=== PATIENT | male | born 1965 | race Caucasian/White ===

== ENCOUNTER 2021-04-14 07:15 | Outpatient (REF) | payer OTHER, SELFPAY ==
--- NOTE | ~2021-04-14 | US_ITS ---
EXAMINATION: US ABDOMEN COMPLETE CLINICAL INFORMATION: Other specified abnormal findings of blood chemistry. COMPARISON: None TECHNIQUE: Real-time imaging of the abdominal viscera. FINDINGS: PANCREAS: Normal. ABDOMINAL AORTA: The proximal, mid, and distal segments are normal in caliber. INFERIOR VENA CAVA: Visualized portions are normal. LIVER: There is some mild diffuse increased echogenicity consistent with fatty infiltration/hepatocellular disease. There is mild dilatation of intrahepatic bile ducts. No focal solid mass is appreciated. GALLBLADDER: There is echogenic bile present. No wall thickening is seen. No fluid within wall was noted. No pericholecystic fluid. COMMON BILE DUCT: Normal in caliber measuring 0.6 cm in diameter. RIGHT KIDNEY: Normal. No hydronephrosis. No renal calculi or focal parenchymal lesions. The kidney measures 11.7 cm in maximum dimension. LEFT KIDNEY: Normal. No hydronephrosis. No renal calculi or focal parenchymal lesions. The kidney measures 11.4 cm in maximum dimension. SPLEEN: Normal. The spleen measures 8.8 cm in maximum dimension. FREE FLUID: None. US/US abdomen complete IMPRESSION: Mildly increased echogenicity of the liver consistent with fatty infiltration/hepatocellular disease. Mild intrahepatic bile duct dilatation. No definite echogenic focus is seen within the visualized hepatic and common bile ducts. Sludge within the gallbladder.
[2021-04-14 08:04] LABS: MANUAL DIFF FLAG NO
[2021-04-14 08:08] LABS: Basophils Percent Auto 0.6 % (0-2); Eosinophils Absolute Auto 0.2 X10*3/uL (0.0-0.4); Eosinophils Percent Auto 3.3 % (0-4); Hematocrit 40.7 % (42-52); Hemoglobin 14.1 g/dl (14.0-18.0); Imm Gran Abs Auto 0.06 X10*3/uL (0.00-0.03); Imm Gran Pct Auto 0.9 % (0.0-0.4); Lymphocytes Absolute Auto 2.3 X10*3/uL (1.2-4.9); Lymphocytes Percent Auto 32.8 % (20-40); Mean Corpuscular HGB Conc 34.6 g/dl (31.0-36.0); Mean Corpuscular Hemoglobin 34.6 pg (27.0-33.0); Mean Platelet Volume 9.6 fL (9.4-12.4); Monocytes Absolute Auto 0.7 X10*3/uL (0.1-1.2); Monocytes Percent Auto 10.5 % (2-11); Neutrophils Absolute Auto 3.7 X10*3/uL (2.0-8.3); Neutrophils Percent Auto 51.9 % (45-73); Platelet Count 165 X10*3/uL (160-400); Red Blood Count 4.07 X10*6/uL (4.60-5.80); Red Cell Distribution Width 12.8 % (11.0-16.0); White Blood Count 7.1 X10*3/uL (4.8-10.8)
[2021-04-14 08:36] LABS: Alanine Aminotransferase 29 U/L (0-40); Albumin Level 4.5 g/dL (3.5-5.0); Alkaline Phosphatase 49 U/L (39-117); Anion Gap 15 (12-20); Aspartate Amino Transferase 26 U/L (5-37); Bilirubin Total 0.6 mg/dL (0.0-1.0); Blood Urea Nitrogen 15 mg/dL (9-16); Calcium 9.6 mg/dL (8.4-10.2); Carbon Dioxide 24 mmol/L (22-29); Chloride 105 mmol/L (96-108); Estimated Glomerular Filt Rate > 60; Glucose Random 120 mg/dL (60-115); Sodium 140 mmol/L (135-145); Total Protein 6.8 g/dL (6.5-8.0)
[2021-04-14 08:51] LABS: Free T4 (Free Thyroxine) 0.87 ng/dL (0.71-1.85); Prostate Specific Antigen Scr 2.42 ng/mL (<0.05-4.0); Thyroid Stimulating Hormone 1.51 uIU/mL (0.32-4.0)
[2021-04-14 09:00] LABS: Folate 11.7 ng/mL (> or = 4.0); Vitamin B12 1697 pg/mL (200-900)
== END 2021-04-14 07:16 | disposition home or self-care (01) ==
LOC: HO.US 07:15
PROVIDERS: PCP Internal Medicine; Visit Provider Internal Medicine
DX: Z12.5 Encounter for screening for malignant neoplasm of prostate (principal); R10.11 Right upper quadrant pain; R79.89 Other specified abnormal findings of blood chemistry
CPT/HCPCS: 36415; 76700; 80053; 82607; 82746; 84153; 84439; 84443; 85025

== ENCOUNTER 2021-06-02 20:02 | Emergency (ER) | payer OTHER, SELFPAY ==
--- NOTE | ~2021-06-02 | CT_ITS ---
EXAMINATION: CT ABDOMEN AND PELVIS WITH CONTRAST CLINICAL INFORMATION: Rectal pain and bleeding COMPARISON: None TECHNIQUE: Multidetector volumetric images were obtained from the superior aspect of the liver through the pubic symphysis following administration 85 mL of Omnipaque 350 intravenous contrast. Sagittal and coronal reformatted images were obtained on the technologist's workstation. Oral contrast: No This CT examination was performed using dose optimization techniques as appropriate, variously including the following: *Automated exposure control *Adjustment of mA and/or kV according to patient size (this includes techniques or standardized protocols for targeted exams where dose is matched to indication/reason for exam; i.e. extremities or head) *Use of iterative reconstruction technique DLP: 547 mGy-cm FINDINGS: LUNG BASES: The visualized lung bases are unremarkable. LIVER, GALLBLADDER, AND BILIARY TREE: The liver is normal in size, shape, and attenuation. No focal hepatic lesion or biliary ductal dilatation is present. The gallbladder is unremarkable with no evidence of radiopaque gallstones, gallbladder wall thickening, or obvious pericholecystic inflammatory changes. PANCREAS: Unremarkable. SPLEEN: Unremarkable. ADRENAL GLANDS: Unremarkable. KIDNEYS AND URETERS: The kidneys are normal in size, shape, and attenuation. No hydronephrosis, hydroureter, or calculi seen. No perinephric stranding. BLADDER: There is symmetric bladder wall thickening, possibly secondary to outflow obstruction GASTROINTESTINAL TRACT: The small and large bowel are unremarkable aside from scattered colonic diverticula without diverticulitis. The appendix is unremarkable. ABDOMINAL WALL: No significant hernia is appreciated. LYMPH NODES: No retroperitoneal lymphadenopathy seen. VASCULAR: Minimal calcific plaque present in the infrarenal aorta without aneurysm PELVIC VISCERA: Prostate moderately enlarged measuring 4.5 x 4.5 x 4.7 cm. Punctate calcifications are seen. Seminal vesicles appear normal. OSSEOUS STRUCTURES: Unremarkable. CT/CT abdomen pelvis w con IMPRESSION: 1. A cause for the patient's rectal bleeding and pain has not been found. Scattered colonic diverticula are present without diverticulitis. 2. Incidental note made of mild BPH with thick-walled bladder possibly secondary to outflow obstruction
[2021-06-02 20:47] LABS: MANUAL DIFF FLAG NO
[2021-06-02 20:48] LABS: Basophils Percent Auto 0.5 % (0-2); Eosinophils Absolute Auto 0.3 X10*3/uL (0.0-0.4); Hematocrit 38.7 % (42-52); Hemoglobin 13.6 g/dl (14.0-18.0); Imm Gran Abs Auto 0.05 X10*3/uL (0.00-0.03); Imm Gran Pct Auto 0.6 % (0.0-0.4); Lymphocytes Absolute Auto 3.4 X10*3/uL (1.2-4.9); Lymphocytes Percent Auto 39.9 % (20-40); Mean Corpuscular HGB Conc 35.1 g/dl (31.0-36.0); Mean Corpuscular Hemoglobin 34.7 pg (27.0-33.0); Mean Corpuscular Volume 98.7 fL (80-98); Mean Platelet Volume 9.1 fL (9.4-12.4); Monocytes Absolute Auto 0.7 X10*3/uL (0.1-1.2); Monocytes Percent Auto 8.7 % (2-11); Neutrophils Absolute Auto 4.1 X10*3/uL (2.0-8.3); Neutrophils Percent Auto 47.3 % (45-73); Platelet Count 154 X10*3/uL (160-400); Red Blood Count 3.92 X10*6/uL (4.60-5.80); Red Cell Distribution Width 12.6 % (11.0-16.0); White Blood Count 8.6 X10*3/uL (4.8-10.8)
[2021-06-02 21:01] LABS: Appearance Urine CLEAR; Color Urine YELLOW; Glucose Urine UA NEG (NEG); Leukocyte Esterase Urine NEG (NEG); Nitrite Urine NEG (NEG); Specific Gravity - Urine <= 1.005 (1.005-1.025); Urine Blood NEG (NEG); Urine Ketones NEG (NEG); Urine Protein NEG (NEG-TRACE)
[2021-06-02 21:04] LABS: Alanine Aminotransferase 30 U/L (0-40); Albumin Level 4.4 g/dL (3.5-5.0); Alkaline Phosphatase 44 U/L (39-117); Anion Gap 13 (12-20); Aspartate Amino Transferase 28 U/L (5-37); Bilirubin Total 0.5 mg/dL (0.0-1.0); Blood Urea Nitrogen 12 mg/dL (9-16); Calcium 9.1 mg/dL (8.4-10.2); Carbon Dioxide 24 mmol/L (22-29); Chloride 109 mmol/L (96-108); Estimated Glomerular Filt Rate > 60; Glucose Random 125 mg/dL (60-115); Potassium 3.4 mmol/L (3.3-5.1); Sodium 143 mmol/L (135-145); Total Protein 6.6 g/dL (6.5-8.0)
[2021-06-02 21:43] VITALS: BP 107/67; PULSE 78; RESP 16; TEMP 36.4; O2SAT 100; BMI 27.2
--- NOTE | 2021-06-02 22:33 | ED_ITS ---
HPI - General Adult General Chief complaint: General Medical Stated complaint: Rectum bleeding Time Seen by Provider: 06/02/21 22:33 Source: patient Mode of arrival: ambulatory Limitations: no limitations History of Present Illness HPI narrative: rectal pain and bleeding 3 days. No history of hemorrhoids. Patient decided to come because he still has pain. Onset (ago): day(s) Severity: mild Pain Consistency: intermittent Associated symptoms: denies other symptoms Related Data Previous Rx's Medication Instructions Recorded pantoprazole 40 mg tablet,delayed 40 mg PO DAILY 90 Days #90 tab 05/02/21 release sertraline 50 mg tablet 50 mg PO DAILY #30 tab 05/02/21 naproxen 500 mg tablet (Naprosyn) 500 mg PO BID #20 tab 06/02/21 Allergies Allergy/AdvReac Type Severity Reaction Status Date / Time No Known Allergies Allergy Verified 05/02/21 09:36 [No Known Allergies*] Review of Systems Constitutional: Constitutional: Reports no additional constitutional complaints Eyes: Eyes: Reports no additional eye complaints ENT: Denies dizziness Cardiovascular: Cardiovascular: Reports no additional cardiovascular complaints Respiratory: Respiratory: Reports as per HPI Gastrointestinal: Gastrointestinal: Reports no additional gastrointestinal complaints Musculoskeletal: Musculoskeletal: Reports no additional musculoskeletal complaints Integumentary/Breasts: Skin/Breast: Denies rash Neurologic: Reports system reviewed and no additional complaints, except as documented, Denies dizziness and Denies Sensory deficit (Neuro) Psychiatric: Psychiatric: Denies anxiety PMFSH Past Medical History Medical History Alcohol abuse GERD (gastroesophageal reflux disease) Hiatal hernia Obstructive sleep apnea Tobacco abuse Family History Family History Father No problems noted. Mother Cancer Brother No problems noted. Brother No problems noted. Sister No problems noted. Sister No problems noted. Sister No problems noted. Daughter No problems noted. Son No problems noted. Social History Social History Housing: Apartment Alcohol intake: current Alcohol intake frequency: 3 or more drinks per day Patient Tobacco Use Status: Current everyday Tobacco user Tobacco use type: Cigarette Cigarette Packs Per Day: 10 Years Smoked: pack Q 2 days e-Cigarette/Vaping Use: Never Used Second Hand Smoke Exposure: Yes Advance Directives: No Advance Directives Information Provided: No service: No Current occupational status: employed Physical Exam Vital Signs: Vital Signs: Last Vital Signs Temp 97.6 F 06/02/21 21:43 Pulse 78 06/02/21 21:43 Resp 16 06/02/21 21:43 BP 107/67 06/02/21 21:43 Pulse Ox 100 06/02/21 21:43 Body Mass Index 27.2 Const: General: healthy appearing Nutritional Appearance: average body habitus Orientation/consciousness: oriented to person and patient oriented x3 Limitations: no limitations HENMT: Head: Yes normal to inspection Ears: external ears normal General nose exam: Normal external nose present Mouth: Normal oral and palatal mucosa present and oropharynx normal Throat: Yes posterior oropharynx normal Eyes: General: appearance normal, both eyes and all related structures Neck: Other: supple Neck: Yes normal visual inspection Chest: Chest palpation & inspection: normal inspection of the chest Resp: Auscultation: clear to auscultation bilaterally Cardio: Jugular venous distension: no JVD Rate: regular rate Rhythm: regular rhythm Heart sounds: S1 normal heart sound present and S2 normal heart sound present GI: Inspection: Yes normal to inspection Palpation (GI): Soft to palpation, nontender and No hepatosplenomegaly present Auscultation: normal bowel sounds : Other: rectum with no masses or bleeding, no hemorrohoids. General: Yes no CVA tenderness Back/Spine/Pelvis: Back: no CVA tenderness Skin: General skin exam: no rashes or lesions noted Neuro: General: oriented to person and patient oriented x3 Cranial nerves: Yes CN's II-XII intact bilaterally Motor exam (neuro): 5/5 motor strength present throughout Sensory Exam: No Sensory deficit (Neuro) Extrem: General: Yes normal to inspection Psych: Appearance: grossly normal Course Reevaluation(s) Reevaluation #1: Patient with continued pain despite a negative exam will obtain a CT abd/pelvis with IV contrast Time: 22:41 Reevaluation #2: Labs normal, CT does not show any source of the rectal pain. Will dc home with follow up Time: 23:43 Medical Decision Making Lab Data Result diagrams: 06/02/21 20:38 06/02/21 20:38 Labs: Lab Results 06/02/21 06/02/21 06/02/21 Range/Units 20:38 20:38 20:43 WBC 8.6 (4.8-10.8) X10*3/uL RBC 3.92 L (4.60-5.80) X10*6/uL Hgb 13.6 L (14.0-18.0) g/dl Hct 38.7 L (42-52) % MCV 98.7 H (80-98) fL MCH 34.7 H (27.0-33.0) pg MCHC 35.1 (31.0-36.0) g/dl RDW 12.6 (11.0-16.0) % Plt Count 154 L (160-400) X10*3/uL MPV 9.1 L (9.4-12.4) fL Immature Gran % (Auto) 0.6 H (0.0-0.4) % Neut % (Auto) 47.3 (45-73) % Lymph % (Auto) 39.9 (20-40) % [place] % (Auto) 8.7 (2-11) % Eos % (Auto) 3.0 (0-4) % Baso % (Auto) 0.5 (0-2) % Lymph # (Auto) 3.4 (1.2-4.9) X10*3/uL [place] # (Auto) 0.7 (0.1-1.2) X10*3/uL Eos # (Auto) 0.3 (0.0-0.4) X10*3/uL Baso # (Auto) 0.0 (0.0-0.2) X10*3/uL Abs Immat Gran (auto) 0.05 H (0.00-0.03) X10*3/uL Absolute Neuts (auto) 4.1 (2.0-8.3) X10*3/uL Absolute Nucleated RBC 0.000 (0.0-0.012) X10*3/uL Nucleated RBC % (auto) 0.0 (0.0-0.2) /100WBC Sodium 143 (135-145) mmol/L Potassium 3.4 (3.3-5.1) mmol/L Chloride 109 H (96-108) mmol/L Carbon Dioxide 24 (22-29) mmol/L Anion Gap 13 (12-20) BUN 12 (9-16) mg/dL Creatinine 0.86 (0.5-1.4) mg/dL Estim Creat Clear Calc TNP Estimated GFR > 60 Random Glucose 125 H (60-115) mg/dL Calcium 9.1 (8.4-10.2) mg/dL Total Bilirubin 0.5 (0.0-1.0) mg/dL AST 28 (5-37) U/L ALT 30 (0-40) U/L Alkaline Phosphatase 44 (39-117) U/L Total Protein 6.6 (6.5-8.0) g/dL Albumin 4.4 (3.5-5.0) g/dL Urine Color YELLOW Urine Appearance CLEAR Urine pH 6.0 (5.0-8.0) Ur Specific [place] <= 1.005 (1.005-1.025) Urine Protein NEG (NEG-TRACE) MG/DL Urine Glucose (UA) NEG (NEG) MG/DL Urine Ketones NEG (NEG) MG/DL Urine Blood NEG (NEG) Urine Nitrite NEG (NEG) Ur Leukocyte Esterase NEG (NEG) Imaging Data CT scan - abdomen: Radiologist's impression: IMPRESSION: 1.? A cause for the patient's rectal bleeding and pain has not been found. Scattered colonic diverticula are present without diverticulitis. 2.? Incidental note made of mild BPH with thick-walled bladder possibly secondary to outflow obstruction? Discharge Plan Discharge Patient Disposition: Home, Self-Care Instructions: Rectal Pain (ED) Prescriptions: New naproxen [Naprosyn] 500 mg tablet 500 mg PO BID Qty: 20 RF: 0 No Action pantoprazole 40 mg tablet,delayed release (DR/EC) 40 mg PO DAILY 90 Days Qty: 90 RF: 2 sertraline 50 mg tablet 50 mg PO DAILY Qty: 30 RF: 3 Referrals: Po,Tavia Mullins MD [Primary Care Provider] - 1 week
[2021-06-02] MEDS: iohexoL 350 MG/ML 100 ML INFUS..BTL IV (23:17)
== END 2021-06-03 00:02 | disposition home or self-care (01) ==
PROVIDERS: Emergency Provider Emergency Medicine; PCP Internal Medicine
DX: K62.5 Hemorrhage of anus and rectum (principal); K62.89 Other specified diseases of anus and rectum; R10.9 Unspecified abdominal pain; Z71.6 Tobacco abuse counseling; F17.210 Nicotine dependence, cigarettes, uncomplicated; Z79.899 Other long term (current) drug therapy
CPT/HCPCS: 36415; 74177; 80053; 81003; 85025; 99284; Q9967

== ENCOUNTER 2022-03-21 18:23 | Emergency (ER) | payer OTHER, SELFPAY ==
[2022-03-21 18:27] VITALS: BP 143/79; PULSE 93; RESP 16; TEMP 36.8; O2SAT 98; BMI 29.8
== END 2022-03-22 00:31 | disposition left against medical advice (07) ==
LOC: HO.ED 03-22 00:30
PROVIDERS: Emergency Provider Emergency Medicine
DX: R51.9 Headache, unspecified (principal)
CPT/HCPCS: 99281

== ENCOUNTER 2022-08-20 10:39 | Outpatient (REF) | payer OTHER, SELFPAY ==
--- NOTE | 2022-08-20 08:00 | EMG_ITS ---
Left median and ulnar motor and sensory studies were performed. Left radial sensory study was performed, and paraspinal muscles were tested with a needle. IMPRESSION: 1. Mild to moderate left median neuropathy across carpal tunnel. 2. Mild left ulnar neuropathy across cubital tunnel. MD ABELARDO Camp/VICKY / [id number]
== END 2022-08-20 10:40 | disposition home or self-care (01) ==
LOC: HO.NEURO 10:39
PROVIDERS: Visit Provider Internal Medicine
DX: Z13.89 Encounter for screening for other disorder (principal)

== ENCOUNTER → 2022-08-24 14:46 | Outpatient (REF) | payer OTHER, SELFPAY | LOC: HO.SL 14:46 | PROVIDERS: PCP Internal Medicine; Visit Provider Internal Medicine | DX: G47.33 Obstructive sleep apnea (adult) (pediatric) (principal) | CPT/HCPCS: 95806 ==

== ENCOUNTER 2022-10-24 07:53 | Outpatient (REF) | payer OTHER, SELFPAY ==
[2022-10-24 08:03] LABS: MANUAL DIFF FLAG NO
[2022-10-24 08:41] LABS: Hematocrit 38.9 % (42.0-52.0); Hemoglobin 13.6 g/dl (14.0-18.0); Mean Corpuscular Volume 102.4 fL (80.0-98.0); White Blood Count 4.8 X10*3/uL (4.8-10.8)
[2022-10-24 08:42] LABS: Basophils Absolute Auto 0.1 X10*3/uL (0.0-0.2); Basophils Percent Auto 1.2 % (0-2); Eosinophils Absolute Auto 0.3 X10*3/uL (0.0-0.4); Eosinophils Percent Auto 6.4 % (0-4); Imm Gran Abs Auto 0.03 X10*3/uL (0.00-0.03); Imm Gran Pct Auto 0.6 % (0.0-0.4); Immature Retic Fraction 10.5 % (2.3-13.4); Mean Corpuscular Hemoglobin 35.8 pg (27.0-33.0); Mean Platelet Volume 9.6 fL (9.4-12.4); Monocytes Absolute Auto 0.6 X10*3/uL (0.1-1.2); Monocytes Percent Auto 12.3 % (2-11); Neutrophils Absolute Auto 1.9 x10*3/uL (2.0-8.3); Neutrophils Percent Auto 38.5 % (45-73); Platelet Count 167 X10*3/uL (160-400); Red Cell Distribution Width 12.9 % (11.0-16.0); Reticulocyte Percent 2.9 % (0.5-1.8); Reticulocytes Absolute 0.109 X10*6/uL (0.026-0.095)
[2022-10-24 09:18] LABS: Alanine Aminotransferase 34 U/L (0-40); Albumin Level 4.4 g/dL (3.5-5.0); Alkaline Phosphatase 40 U/L (39-117); Anion Gap 14 (12-20); Aspartate Amino Transferase 30 U/L (5-37); Bilirubin Total 0.8 mg/dL (0.0-1.0); Blood Urea Nitrogen 13 mg/dL (9-16); Calcium 9.3 mg/dL (8.4-10.2); Carbon Dioxide 24 mmol/L (22-29); Chloride 109 mmol/L (96-108); Cholesterol 220 mg/dL; Estimated Glomerular Filt Rate > 60; Glucose Random 98 mg/dL (60-115); HDL Cholesterol 76 mg/dL; Iron 106 mcg/dL (45-160); LDL Cholesterol Calculated 116 mg/dl; Percent Iron Saturation 43 % (15-50); Sodium 143 mmol/L (135-145); Total Iron Binding Capacity 246 mcg/dL (228-428); Total Protein 6.4 g/dL (6.5-8.0); Triglycerides 140 mg/dL; Unsaturated Iron Binding 140 ug/dL
[2022-10-24 09:52] LABS: Ferritin 1209 ng/mL (20-250); Free T4 (Free Thyroxine) 0.86 ng/dL (0.71-1.85); Prostate Specific Antigen Scr 1.79 ng/mL (<0.05-4.0); Thyroid Stimulating Hormone 2.16 uIU/mL (0.32-4.0); Vitamin B12 515 pg/mL (200-900)
== END 2022-10-24 07:54 | disposition home or self-care (01) ==
LOC: HO.LAB 07:53
PROVIDERS: PCP Internal Medicine; Visit Provider Internal Medicine
DX: Z12.5 Encounter for screening for malignant neoplasm of prostate (principal); D64.9 Anemia, unspecified; K21.9 Gastro-esophageal reflux disease without esophagitis; E78.00 Pure hypercholesterolemia, unspecified
CPT/HCPCS: 36415; 80053; 80061; 82607; 82728; 82746; 83540; 84153; 84439; 84443; 85025; 85045

== ENCOUNTER → 2022-12-01 08:10 | Outpatient (BNVA) | payer OTHER, SELFPAY | PROVIDERS: PCP Internal Medicine; Visit Provider Nurse Practitioner Family | DX: G47.33 Obstructive sleep apnea (adult) (pediatric) (principal); G47.36 Sleep related hypoventilation in conditions classified elsewhere | CPT/HCPCS: 99202 ==

== ENCOUNTER 2023-01-19 08:18 | Emergency (ER) | payer OTHER, SELFPAY ==
--- NOTE | ~2023-01-19 | XR_ITS ---
EXAMINATION: XR HAND, RIGHT CLINICAL INFORMATION: Dislocation. Possible fracture. COMPARISON: None available. TECHNIQUE: PA, lateral, and oblique views of the right hand. FINDINGS: The bones and soft tissues are normal. No fracture. Alignment is anatomic. Joint spaces are maintained. No erosions or soft tissue calcifications. XR/XR hand RT min 3V IMPRESSION: Normal right hand.
[2023-01-19 08:32] VITALS: BP 174/92; PULSE 76; RESP 20; TEMP 36.6; O2SAT 99; BMI 27.1
--- NOTE | 2023-01-19 09:07 | ED_ITS ---
HPI - Extremity Problem General Chief complaint: Extremity Injury, Upper Stated complaint: ? Broken Fingers R Hand Time Seen by Provider: 01/19/23 09:02 Source: patient Mode of arrival: ambulatory Limitations: no limitations History of Present Illness HPI Narrative: Patient is a 57-year-old [id number] male presenting with right middle finger pain, swelling, and ecchymosis after he slipped getting out of the shower last night. He states after his fall his finger was hanging down, and that he reduced it himself. He reports ongoing pain, swelling, and bruising. He denies any numbness or tingling to his finger. He used ibuprofen for his discomfort this morning but has not applied any ice. He denies any other injuries, denies hitting his head, denies LOC. He denies any head, neck, or back pain. Related Data Previous Rx's Medication Instructions Recorded omeprazole 20 mg capsule,delayed 20 mg PO DAILY #90 caps 08/18/22 release escitalopram oxalate 5 mg tablet 5 mg PO DAILY #30 tabs 11/13/22 (Lexapro) naltrexone 50 mg tablet 50 mg PO DAILY #30 tabs 11/30/22 Allergies Allergy/AdvReac Type Severity Reaction Status Date / Time No Known Allergies Allergy Verified 01/19/23 08:37 [No Known Allergies*] Review of Systems Review of Systems: As per HPI Yes all other systems are reviewed and are negative Constitutional: Constitutional: Reports as per HPI COUNT INCLUDES [facility] Past Medical History Medical History (Updated 01/19/23 @ 09:52 by Bri Ackerman NP) Alcohol abuse GERD (gastroesophageal reflux disease) Hiatal hernia Numbness of left hand Obstructive sleep apnea Tobacco abuse Family History Family History Father Alcohol abuse Mother Cancer Brother No problems noted. Brother No problems noted. Sister No problems noted. Sister No problems noted. Sister No problems noted. Daughter No problems noted. Son No problems noted. Social History Social History Housing: Apartment Alcohol intake: never Patient Tobacco Use Status: Current everyday Tobacco user Tobacco use type: Cigarette Cigarette Packs Per Day: 10 Years Smoked: pack Q 2 days Smoked in Last 30 Days: No e-Cigarette/Vaping Use: Never Used Second Hand Smoke Exposure: Yes Use of substances other than those prescribed or required for medical reasons: No Advance Directives: No service: No Current occupational status: employed Cognitive needs: No Hearing needs: No Vision needs: Yes Physical Exam Vital Signs: Vital Signs: Last Vital Signs Temp 97.8 F 01/19/23 08:32 Pulse 76 01/19/23 08:32 Resp 20 01/19/23 08:32 BP 174/92 H 01/19/23 08:32 Pulse Ox 99 01/19/23 08:32 O2 Del Method Room Air 01/19/23 08:32 BMI result Body Mass Index 27.1 Const: General: cooperative, healthy appearing and no acute distress Orientation/consciousness: oriented to person, oriented to place, oriented to time and patient oriented x3 Limitations: no limitations HEENT: Head: Yes normocephalic and Yes atraumatic Ears: external ears normal General nose exam: Normal external nose present Face and sinus: Yes face symmetric Mouth: oropharynx normal and moist mucous membranes Throat: Yes uvula midline Eyes: Pupils: Equal, round and reactive pupils present Neck: Neck: Yes normal visual inspection and Yes supple Resp: Effort & Inspection: normal respiratory effort and able to speak in complete sentences Auscultation: clear to auscultation bilaterally Cardio: Rate: regular rate Rhythm: regular rhythm Heart sounds: S1 normal heart sound present and S2 normal heart sound present GI: Palpation (GI): Soft to palpation and nontender Auscultation: normoactive bowel sounds : General: Yes no CVA tenderness Back/Spine/Pelvis: Back: no CVA tenderness Cervical Spine: cervical ROM normal and No Cervical spine tenderness Thoracic/Lumbar Spine: No thoracic spinal tenderness and No lumbar spinal tenderness Skin: General skin exam: elasticity normal and turgor normal Neuro: General: oriented to person, oriented to place, oriented to time, patient oriented x3, moves all extremities, no focal motor deficits and CN's II- XI intact bilaterally Cranial nerves: Yes Equal, round and reactive pupils present Cognition (Neuro): normal cognition Extrem: General: Yes full ROM, Yes no pedal edema and Yes no calf tenderness Right upper extremity: wrist Details: normal to inspection and Extremity exam: right hand Details: neuromotor exam normal, neurosensory exam normal, tendon exam normal, tenderness Location: of the 3rd digit Location: at the PIP joint; not at the MCP joint and not at the DIP joint, vascular exam Details: radial pulse present and normal capillary refill, swelling Location: of the 3rd digit Location: involving the entire digit and ecchymosis Location: of the 3rd digit Location: at the MCP joint, at the proximal phalanx and at the PIP joint; no crepitus Psych: Mental Status: mental status grossly normal Affect: normal affect Thought process: Normal thought process present Medical Decision Making Medical Decision Making MDM Narrative: Patient is a 57-year-old [id number] male presenting with right middle finger pain, swelling, and ecchymosis after he slipped getting out of the shower last night. On exam patient is A+Ox3, in no acute distress, VS WNL, 3rd digit right hand with mild swelling and ecchymosis, mildly decreased ROM r/t swelling, 2+ radial pulse, cap refill <2 seconds. Concern for strain, sprain, fracture, or dislocation. X-ray reveals no acute fracture and normal joint spaces. Will discharge home with splint, progress with activities as tolerated, follow up with ortho for any ongoing symptoms, ice, and Tylenol/ibuprofen for pain. Return precautions discussed at bedside. Differential Diagnosis Differential Diagnoses: The differential diagnosis associated with the presentation includes As above. Independent Interpretation I performed an independent interpretation of an: Plain X-Ray Interpretation: I independently reviewed the x-ray and agree with the radiologist's interpretation. Radiology Impression Discussion of test interpretation with radiology: I have reviewed the radiologist's reading. Radiologist Impression: FINDINGS: The bones and soft tissues are normal. No fracture. Alignment is anatomic. Joint spaces are maintained. No erosions or soft tissue calcifications.? XR/XR hand RT min 3V IMPRESSION: Normal right hand. External Record Review External record reviewed: Inpatient record, Office record and Outpatient record Discharge Plan Discharge Clinical Impression: Injury of finger of right hand Patient Disposition: Home, Self-Care Instructions: Finger Dislocation (ED), R.I.C.E. Treatment (ED) Additional Instructions: You were evaluated in the emergency department today for an injury to your finger. Your x-ray shows normal joint alignment with no fracture. Wear the splint as needed and progress with activities as tolerated, apply ice several times daily, use Tylenol or ibuprofen per package instructions as needed for pain. Return for any worsening pain, numbness, tingling, change of color to your finger, or any other concerning symptoms. If your symptoms do not resolve over the next 1-2 weeks, follow up with the orthopedic surgeon. Prescriptions: No Action escitalopram oxalate [Lexapro] 5 mg tablet 5 mg PO DAILY Qty: 30 2RF omeprazole 20 mg capsule,delayed release(DR/EC) 20 mg PO DAILY Qty: 90 3RF naltrexone 50 mg tablet 50 mg PO DAILY Qty: 30 2RF Referrals: [facility] [place] [facility] [Provider Group]
--- NOTE | 2023-01-19 09:07 | PC.NURSE ---
Patient fell last night in the shower and dislocated middle finger. Upon assessment right middle finger is swollen and patient has limited mobility with that finger. Patient is in minimal pain at this time.
[2023-01-19 10:03] VITALS: BP 169/97; PULSE 71; RESP 17; O2SAT 100
== END 2023-01-19 10:06 | disposition home or self-care (01) ==
PROVIDERS: Emergency Provider Student in an Organized Health Care Education/Training Program; PCP Internal Medicine
DX: S69.91XA Unspecified injury of right wrist, hand and finger(s), initial encounter (principal); W18.2XXA Fall in (into) shower or empty bathtub, initial encounter; Y93.E1 Activity, personal bathing and showering; Y92.031 Bathroom in apartment as the place of occurrence of the external cause; Y99.9 Unspecified external cause status
CPT/HCPCS: 73130; 99283; 99284

== ENCOUNTER 2023-02-26 07:18 | Outpatient (REF) | payer OTHER, SELFPAY ==
[2023-02-26 07:25] LABS: MANUAL DIFF FLAG NO
[2023-02-26 08:37] LABS: Basophils Percent Auto 0.7 % (0-2); Eosinophils Absolute Auto 0.2 X10*3/uL (0.0-0.4); Eosinophils Percent Auto 3.2 % (0-4); Hematocrit 39.4 % (42.0-52.0); Hemoglobin 13.5 g/dl (14.0-18.0); Imm Gran Abs Auto 0.03 X10*3/uL (0.00-0.03); Imm Gran Pct Auto 0.6 % (0.0-0.4); Immature Retic Fraction 9.9 % (2.3-13.4); Lymphocytes Absolute Auto 2.5 X10*3/uL (1.2-4.9); Lymphocytes Percent Auto 46.6 % (20-40); Mean Corpuscular HGB Conc 34.3 g/dl (31.0-36.0); Mean Corpuscular Hemoglobin 35.1 pg (27.0-33.0); Mean Corpuscular Volume 102.3 fL (80.0-98.0); Mean Platelet Volume 9.8 fL (9.4-12.4); Monocytes Absolute Auto 0.7 X10*3/uL (0.1-1.2); Monocytes Percent Auto 12.2 % (2-11); Neutrophils Percent Auto 36.7 % (45-73); Platelet Count 151 X10*3/uL (160-400); Red Blood Count 3.85 X10*6/uL (4.60-5.80); Red Cell Distribution Width 12.8 % (11.0-16.0); Retic HGB Equivalent 39.7 pg (30.0-35.0); Reticulocyte Percent 2.1 % (0.5-1.8); Reticulocytes Absolute 0.081 X10*6/uL (0.026-0.095); White Blood Count 5.3 X10*3/uL (4.8-10.8)
[2023-02-26 09:26] LABS: Iron 118 mcg/dL (45-160); Percent Iron Saturation 47 % (15-50); Total Iron Binding Capacity 250 mcg/dL (228-428); Unsaturated Iron Binding 132 ug/dL
[2023-02-26 10:55] LABS: Ferritin 2241 ng/mL (20-250)
== END 2023-02-26 07:19 | disposition home or self-care (01) ==
LOC: HO.LAB 07:18
PROVIDERS: PCP Internal Medicine; Visit Provider Internal Medicine
DX: E83.19 Other disorders of iron metabolism (principal)
CPT/HCPCS: 36415; 82728; 83540; 85025; 85045

== ENCOUNTER 2023-03-02 13:57 | Outpatient (AMB) | payer OTHER, SELFPAY ==
--- NOTE | 2023-03-02 13:58 | A.OFFVIS_ITS ---
Intake Vital Signs 03/02/23 13:59 Height 5 ft 7 in Weight 172 lb BMI 26.9 BP 132/88 Blood Pressure Location Rt brachial Position Sitting Intake Visit Reasons: 3 mo f/u for RAJESH-Confirmed Intake Note: Patient presents for 3 month follow up. Allergies No Known Allergies [No Known Allergies*] Allergy (Verified 03/02/23 14:02) HPI HPI Comments History of Present Illness Details 57 y/o male patient with RAJESH on CPAP presents for follow up visit. Pt had a repeat home sleep study. The home sleep study result was significant for moderately severe. The AHI was 28/hr and oxygen rhonda was 75%. The average O2 sat was 91% and below 88% for 86 min. Pt started APAP [id number]. He can sleep well with his CPAP, 10 pm to 4: 30 am. Denies daytime sleepiness. He can have morning headache sometimes, using ibuprofen and it relieves. The CPAP compliance and therapy response (11/27/22-02/25/23) reviewed. The usage days 36 days and the average usage hours 6 hours and 45 min. The median pressure was 9.3 and the AHI was 0.6/hr. [facility] Medical History Alcohol abuse GERD (gastroesophageal reflux disease) Hiatal hernia Numbness of left hand Obstructive sleep apnea Tobacco abuse Family History Father Alcohol abuse Mother Cancer Brother No problems noted. Brother No problems noted. Sister No problems noted. Sister No problems noted. Sister No problems noted. Daughter No problems noted. Son No problems noted. Social History Housing: Apartment Alcohol intake: never Patient Tobacco Use Status: Current everyday Tobacco user Tobacco use type: Cigarette Cigarette Packs Per Day: 10 Years Smoked: pack Q 2 days e-Cigarette/Vaping Use: Never Used Second Hand Smoke Exposure: Yes service: No Current occupational status: employed Cognitive needs: No Hearing needs: No Vision needs: Yes Review of Systems Const All systems reviewed & are unremarkable except as noted in HPI and below ENT Reports Normal hearing present Neuro Reports Normal hearing present Physical Exam Vital Signs: Last Vital Signs BP 132/88 03/02/23 13:59 BMI result Body Mass Index 26.9 Const General: cooperative Nutritional Appearance: average body habitus Orientation/consciousness: patient oriented x3 Resp Effort & Inspection: normal respiratory effort and able to speak in complete sentences Neuro General: patient oriented x3, gait normal and moves all extremities Cranial nerves: Yes Bilaterally intact EOM present, Yes Normal facial strength present, Yes Midline tongue present, Yes Symmetric palate elevation present, Yes Normal hearing present, Yes Ability to bilaterally rotate head present and Yes Ability to bilaterally elevate shoulders present Cognition (Neuro): normal cognition Gait exam (Neuro): Normal gait present Motor exam (neuro): 5/5 motor strength present throughout, Pronator motor function not present and Tremors during motor activity present (mild left hand tremor.) Assessment & Plan Assessment & Plan (1) Hypoxemia associated with sleep: Code(s): G47.36 - Sleep related hypoventilation in conditions classified elsewhere (2) Obstructive sleep apnea: Comment: Moderately severe degree of sleep apnea. The AHI was 28/hr and oxygen rhonda was 75 %. Code(s): G47.33 - Obstructive sleep apnea (adult) (pediatric) Plan Advised patient to continue to use CPAP [id number]. Stressed compliance, use CPAP nightly and more than 4 hours. Continue to practice good sleep hygiene. Coding Level of Care Code Est Pt Level 3 (77311) Diagnoses Hypoxemia associated with sleep G47.36 Obstructive sleep apnea G47.33
[2023-03-02 13:59] VITALS: BP 132/88; BMI 26.9
== END 2023-03-02 14:22 | disposition home or self-care (01) ==
LOC: HO.HSMC 13:57
PROVIDERS: PCP Internal Medicine; Visit Provider Nurse Practitioner Family
DX: G47.33 Obstructive sleep apnea (adult) (pediatric) (principal)
CPT/HCPCS: 99213

== ENCOUNTER → 2023-03-02 13:57 | Outpatient (BNVA) | payer OTHER, SELFPAY | PROVIDERS: PCP Internal Medicine; Visit Provider Nurse Practitioner Family | DX: G47.33 Obstructive sleep apnea (adult) (pediatric) (principal); G47.36 Sleep related hypoventilation in conditions classified elsewhere | CPT/HCPCS: 99212 ==

== ENCOUNTER → 2023-03-30 13:52 | Outpatient (BNV) | payer OTHER, SELFPAY | PROVIDERS: PCP Internal Medicine; Referring Provider Internal Medicine; Visit Provider Internal Medicine Medical Oncology | DX: D64.9 Anemia, unspecified (principal) | CPT/HCPCS: 99204 ==

== ENCOUNTER 2023-04-19 16:08 | Outpatient (AMB) | payer OTHER, SELFPAY ==
[2023-04-19 16:09] VITALS: BP 162/110; PULSE 84; O2SAT 99; BMI 27.1
--- NOTE | 2023-04-19 16:09 | MHC.PC.OV ---
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 Allergies No Known Allergies [No Known Allergies*] Allergy (Verified 04/19/23 16:09) Medication List - Last Reconciled 04/19/23 by Tavia Arellano MD acamprosate 666 mg (2 x 333 mg) PO TID 30 days blood pressure monitor (Blood Pressure Kit) As directed cholecalciferol (vitamin D3) 50 mcg PO DAILY escitalopram oxalate 20 mg PO DAILY ibuprofen 800 mg PO TID multivitamin 1 tab PO DAILY omeprazole 20 mg PO DAILY vitamin B complex ER (Complex B-100 tablet,extended release) 1 tab PO DAILY Tobacco use date assessed: 04/19/23 Dental Screening Dental Screen Date: 04/19/23 Did you have a dental visit in the last 12 months?: No Did you have a dental problem in the last 6 months where you did not have access to dental care?: No HPI anemia,iron overload, alcohol abuse , depression HPI Details 57-year-old Overweight male smoker with a history of obstructive sleep apnea, GERD, recurrent major depression, stable anemia, iron overload and dislocation of the finger PIP joint. Patient is here for follow-up. Patient does have alcohol abuse history. Last seen in February 2023. Patient was seen by hematology oncology and did blood work revealing stable results. [facility]MERLY [facility] Medical History Alcohol abuse GERD (gastroesophageal reflux disease) Hiatal hernia Numbness of left hand Obstructive sleep apnea Tobacco abuse Family History Father Alcohol abuse Mother Cancer Brother No problems noted. Brother No problems noted. Sister No problems noted. Sister No problems noted. Sister No problems noted. Daughter No problems noted. Son No problems noted. Social History (Updated 03/30/23 @ 14:04 by Jamil Medellin) Housing: Apartment Alcohol intake: never Patient Tobacco Use Status: Current everyday Tobacco user Tobacco use type: Cigarette Cigarette Packs Per Day: 10 Years Smoked: pack Q 2 days Packs Per Year: 0 e-Cigarette/Vaping Use: Never Used Second Hand Smoke Exposure: Yes service: No Current occupational status: employed Cognitive needs: No Hearing needs: No Vision needs: Yes Questionnaire Thrive Questionnaire Date Thrive assessed: 08/18/22 AUDIT C Alcohol Use Questionnaire (AUDIT-C) 1. How often do you have a drink containing alcohol?: 4 or more times a week 2. How many drinks containing alcohol do you have on a typical day when you are drinking?: 10 or more 3. How often do you have six or more drinks on one occasion?: Daily or almost daily Total Score: 12 YVONNE-7 AMB Questionnaire YVONNE-7 Date YVONNE - 7 assessed: 11/30/22 Source: Developed by Drs. Lobito Wise, Annamarie Springer, Oumar Soler and colleagues, with an educational sarwat from [employer]. Physical exam (Primary Care) Vital Signs: Last Vital Signs Pulse 84 04/19/23 16:09 BP 162/110 H 04/19/23 16:09 Pulse Ox 99 04/19/23 16:09 Oxygen Delivery Method Room Air 04/19/23 16:09 BMI result Body Mass Index 27.1 Tobacco/Smoking Status: Tobacco use Status Tobacco use date assessed 04/19/23 04/19/23 16:13 Patient Tobacco Use Status Current everyday Tobacco 04/19/23 16:13 Tobacco use type Cigarette 04/19/23 16:13 e-Cigarette/Vaping Use Never Used 04/19/23 16:13 Thrive Assessment: Date of Thrive Assessment Date Thrive assessed 08/18/22 04/19/23 16:13 Const General: alert; No acute distress Eyes Conjunctivae: conjunctivae normal Resp Auscultation: clear to auscultation bilaterally Cardio Rate: regular rate Rhythm: regular rhythm GI Inspection: Yes normal to inspection Extrem General: Yes normal to inspection and No edema Assessment and Plan Assessment & Plan (1) Elevated ferritin level: Code(s): R79.89 - Other specified abnormal findings of blood chemistry Plan: Patient has seen hematology oncology and continuing to monitor (2) Anemia: Code(s): D64.9 - Anemia, unspecified Plan: anemia resolved (3) Overweight (BMI 25.0-29.9): Code(s): E66.3 - Overweight Plan: Diet and exercise (4) Recurrent major depression: Comment: Declined referral for counseling Code(s): F33.9 - Major depressive disorder, recurrent, unspecified Plan: Continue with present medication but would like an increase in the dose. (5) Alcohol abuse: Code(s): F10.10 - Alcohol abuse, uncomplicated Plan: Patient is advised to avoid alcohol (6) GERD (gastroesophageal reflux disease): Code(s): K21.9 - Gastro-esophageal reflux disease without esophagitis Qualifiers: Esophagitis presence: without esophagitis Qualified Code(s): K21.9 - Gastro-esophageal reflux disease without esophagitis Plan: Avoid the foods that causes that usually spicy foods, tomato products, juices, coffee, soda and foods that your sensitive to. After eating do not lie down, allow 3-4 hours before in lie down. And keep the head of bed above 30 degrees to avoid the acid from going up. (7) Tobacco abuse: Code(s): Z72.0 - Tobacco use Plan: Patient is strongly advised to stop (8) Obstructive sleep apnea: Comment: Moderately severe degree of sleep apnea. The AHI was 28/hr and oxygen rhonda was 75 %. Code(s): G47.33 - Obstructive sleep apnea (adult) (pediatric) Plan: Patient continues to follow-up with sleep management and monitoring being done. (9) Blood pressure elevated without history of HTN: Code(s): R03.0 - Elevated blood-pressure reading, without diagnosis of hypertension Plan: monitor BP. BP kit rx Medications: New blood pressure monitor (Blood Pressure Kit) As directed 1 ea 0RF I10 - Essential (primary) hypertension, R03.0 - Elevated blood-pressure reading, without diagnosis of hypertension Changed From escitalopram oxalate 10 mg PO DAILY 90 tabs 1RF F33.9 - Major depressive disorder, recurrent, unspecified To escitalopram oxalate 20 mg PO DAILY 90 tabs 1RF F33.9 - Major depressive disorder, recurrent, unspecified Refilled escitalopram oxalate 10 mg PO DAILY 90 tabs 1RF F33.9 - Major depressive disorder, recurrent, unspecified Coding Level of Care Code Est Pt Level 4 (22976) Diagnoses Elevated ferritin level R79.89 Anemia D64.9 Overweight (BMI 25.0-29.9) E66.3 Recurrent major depression F33.9 Alcohol abuse F10.10 GERD (gastroesophageal reflux disease) K21.9 Esophagitis presence: without esophagitis Tobacco abuse Z72.0 Obstructive sleep apnea G47.33 Blood pressure elevated without history of HTN R03.0
[2023-04-19 16:31] VITALS: BP 140/88
== END 2023-04-19 16:41 | disposition home or self-care (01) ==
PROVIDERS: PCP Internal Medicine; Visit Provider Internal Medicine
DX: D64.9 Anemia, unspecified (principal); F33.9 Major depressive disorder, recurrent, unspecified; K21.9 Gastro-esophageal reflux disease without esophagitis; R79.89 Other specified abnormal findings of blood chemistry; E66.3 Overweight; F10.10 Alcohol abuse, uncomplicated; Z72.0 Tobacco use; G47.33 Obstructive sleep apnea (adult) (pediatric); R03.0 Elevated blood-pressure reading, without diagnosis of hypertension
CPT/HCPCS: 99214

== ENCOUNTER 2023-05-19 13:45 | Outpatient (AMB) | payer OTHER, SELFPAY ==
[2023-05-19 13:50] VITALS: BP 144/78; PULSE 80; O2SAT 98; BMI 27.2
--- NOTE | 2023-05-19 13:50 | MHC.PC.OV ---
Vital Signs 05/19/23 13:50 Height 5 ft 7 in Weight 174 lb BMI 27.2 BP 144/78 H Blood Pressure Location Lt brachial Position Sitting Pulse 80 Pulse Source Pulse Oximeter Pulse Oximetry (%) 98 Oxygen Delivery Method Room Air Intake Visit Reasons: Lump on right middle finger Allergies No Known Allergies [No Known Allergies*] Allergy (Verified 05/19/23 13:51) Tobacco use date assessed: 04/19/23 Dental Screening Dental Screen Date: 05/19/23 Did you have a dental visit in the last 12 months?: No Did you have a dental problem in the last 6 months where you did not have access to dental care?: No Was dental information given to patient?: No HPI Lump on right middle finger HPI Details [age] Year old overweight male with tobacco and alcohol abuse recurrent major depression GERD obstructive sleep apnea coming in for follow-up last seen in April 2023 noted to have an elevated blood pressure and advised to monitor blood pressure at. Patient is here for follow-up for an acute problem also patient had right 3rd finger problem for multiple months already January 2023 had an x-ray which did not reveal any problem. But this continued to have some swelling as well as pain and patient has hard time of making a fist. With this problem prompting for consultation. [facility] Medical History Alcohol abuse GERD (gastroesophageal reflux disease) Hiatal hernia Numbness of left hand Obstructive sleep apnea Tobacco abuse Family History (Updated 05/19/23 @ 13:52 by Selene Jang [facility]) Father Alcohol abuse Mother Cancer Brother No problems noted. Brother No problems noted. Sister No problems noted. Sister No problems noted. Sister No problems noted. Daughter No problems noted. Son No problems noted. Social History (Updated 03/30/23 @ 14:04 by Jamil Medellin) Housing: Apartment Alcohol intake: never Patient Tobacco Use Status: Current everyday Tobacco user Tobacco use type: Cigarette Cigarette Packs Per Day: 10 Years Smoked: pack Q 2 days e-Cigarette/Vaping Use: Never Used Second Hand Smoke Exposure: Yes service: No Current occupational status: employed Cognitive needs: No Hearing needs: No Vision needs: Yes Questionnaire PHQ-9 Over the last 2 weeks, how often have you been bothered by any of the following problems? 1. Little interest or pleasure in doing things: several days 2. Feeling down, depressed, or hopeless: several days 3. Trouble falling or staying asleep, or sleeping too much: not at all 4. Feeling tired or having little energy: not at all 5. Poor appetite or overeating: not at all 6. Feeling bad about yourself - or that you are a failure or have let yourself or your family down: not at all 7. Trouble concentrating on things, such as reading the newspaper or watching television: not at all 8. Moving or speaking so slowly that other people could have noticed. Or the opposite - being so fidgety or restless that you have been moving around a lot more than usual: not at all 9. Thoughts that you would be better off or of hurting yourself in some way: not at all Total score: 2 Depression Screening Interpretation: Positive Source: Developed by Drs. Lobito Wise, Annamarie Springer, Oumar Soler and colleagues, with an educational sarwat from [employer]. Thrive Questionnaire Date Thrive assessed: 05/19/23 I am a: Patient What is your living situation today?: I have a steady place to live Within the past 12 months, did the food you bought not last and you didn't have the money to get more?: Never true Within the past 12 months, did you worry whether your food would run out before you got money to buy more?: Never true Do you have trouble paying for medicines?: No Do you have trouble getting transportation to medical appointments?: No Do you have trouble paying your heating and electricity bill?: No Do you have trouble taking care of your child, family member or friend?: No Do you have trouble with day-to-day activities such as bathing, preparing meals, shopping, managing finances, etc.?: No Are you currently unemployed and looking for a job?: No Are you interested in more education?: No Currently or been in a relationship where the following occur: no concerns reported AUDIT C Alcohol Use Questionnaire (AUDIT-C) 1. How often do you have a drink containing alcohol?: 4 or more times a week 2. How many drinks containing alcohol do you have on a typical day when you are drinking?: 10 or more 3. How often do you have six or more drinks on one occasion?: Daily or almost daily Total Score: 12 YVONNE-7 AMB Questionnaire YVONNE-7 Date YVONNE - 7 assessed: 11/30/22 Source: Developed by Drs. Lobito Wise, Annamarie Springer, Oumar Soler and colleagues, with an educational sarwat from [employer]. Physical exam (Primary Care) Vital Signs: Last Vital Signs Pulse 80 05/19/23 13:50 BP 144/78 H 05/19/23 13:50 Pulse Ox 98 05/19/23 13:50 Oxygen Delivery Method Room Air 05/19/23 13:50 Care Plan Goal for BP management: R third finger PIP swelling , mild redness, tender on palpation BMI result Body Mass Index 27.2 Tobacco/Smoking Status: Tobacco use Status Tobacco use date assessed 04/19/23 05/19/23 13:55 Patient Tobacco Use Status Current everyday Tobacco 05/19/23 13:55 Tobacco use type Cigarette 05/19/23 13:55 e-Cigarette/Vaping Use Never Used 05/19/23 13:55 PHQ-9: PHQ-9 Score PHQ-9: Total score 2 05/19/23 13:55 Depression Screening Interpretation: Positive Thrive Assessment: Date of Thrive Assessment Date Thrive assessed 05/19/23 05/19/23 13:55 Currently or been in a relationship where the following occur: no concerns reported Const General: alert; No acute distress Eyes Conjunctivae: conjunctivae normal Resp Auscultation: clear to auscultation bilaterally Cardio Rate: regular rate Rhythm: regular rhythm GI Inspection: Yes normal to inspection Extrem General: Yes normal to inspection and No edema Assessment and Plan Assessment & Plan (1) Blood pressure elevated without history of HTN: Code(s): R03.0 - Elevated blood-pressure reading, without diagnosis of hypertension Plan: Continue to monitor blood pressure (2) Overweight (BMI 25.0-29.9): Code(s): E66.3 - Overweight Plan: Diet and exercise (3) Tobacco abuse: Code(s): Z72.0 - Tobacco use Plan: Patient is strongly advised to stop smoking! (4) Dislocation of finger PIP joint: Code(s): S63.289A - Dislocation of proximal interphalangeal joint of unspecified finger, initial encounter Plan: R third finger tender and swollen - refer to hand surgeon Orders: Referrals Orthopedics Referral S63.289A - Dislocation of proximal interphalangeal joint of unspecified finger, initial encounter Coding Level of Care Code Est Pt Level 4 (82913) Diagnoses Blood pressure elevated without history of HTN R03.0 Overweight (BMI 25.0-29.9) E66.3 Tobacco abuse Z72.0 Dislocation of finger PIP joint S63.289A
== END 2023-05-19 14:06 | disposition home or self-care (01) ==
PROVIDERS: PCP Internal Medicine; Visit Provider Internal Medicine
DX: R03.0 Elevated blood-pressure reading, without diagnosis of hypertension (principal); E66.3 Overweight; Z72.0 Tobacco use; S63.289A Dislocation of proximal interphalangeal joint of unspecified finger, initial encounter
CPT/HCPCS: 99214

== ENCOUNTER 2023-06-03 14:46 | Emergency (ER) | payer OTHER, SELFPAY ==
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
[2023-06-03 14:59] VITALS: BP 129/86; PULSE 89; O2SAT 97
[2023-06-03 15:03] VITALS: BP 123/87; PULSE 83; RESP 18; TEMP 36.8; O2SAT 97; BMI 34.8
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
[2023-06-03 16:01] LABS: MANUAL DIFF FLAG NO
[2023-06-03 16:03] LABS: Basophils Percent Auto 0.9 % (0-2); Eosinophils Absolute Auto 0.1 X10*3/uL (0.0-0.4); Eosinophils Percent Auto 2.4 % (0-4); Hemoglobin 13.8 g/dl (14.0-18.0); Imm Gran Abs Auto 0.02 X10*3/uL (0.00-0.03); Imm Gran Pct Auto 0.4 % (0.0-0.4); Lymphocytes Absolute Auto 2.2 X10*3/uL (1.2-4.9); Lymphocytes Percent Auto 47.2 % (20-40); Mean Corpuscular HGB Conc 36.3 g/dl (31.0-36.0); Mean Corpuscular Hemoglobin 36.2 pg (27.0-33.0); Mean Corpuscular Volume 99.7 fL (80.0-98.0); Mean Platelet Volume 9.3 fL (9.4-12.4); Monocytes Absolute Auto 0.4 X10*3/uL (0.1-1.2); Monocytes Percent Auto 9.4 % (2-11); Neutrophils Absolute Auto 1.8 x10*3/uL (2.0-8.3); Neutrophils Percent Auto 39.7 % (45-73); Platelet Count 131 X10*3/uL (160-400); Red Blood Count 3.81 X10*6/uL (4.60-5.80); Red Cell Distribution Width 12.8 % (11.0-16.0); White Blood Count 4.6 X10*3/uL (4.8-10.8)
--- NOTE | 2023-06-03 16:16 | MHC.EDTECH ---
pt provided with urine cup and escorted to bathroom. pt voided into toilet. pt forgot to pee in cup and will next time. rn aware
[2023-06-03 16:21] LABS: Alanine Aminotransferase 119 U/L (0-40); Albumin Level 4.1 g/dL (3.5-5.0); Alkaline Phosphatase 61 U/L (39-117); Anion Gap 20 (12-20); Aspartate Amino Transferase 127 U/L (5-37); Bilirubin Direct 0.1 mg/dL (0.0-0.5); Bilirubin Total 0.3 mg/dL (0.0-1.0); Blood Urea Nitrogen 15 mg/dL (9-16); Calcium 9.3 mg/dL (8.4-10.2); Carbon Dioxide 20 mmol/L (22-29); Chloride 107 mmol/L (96-108); Estimated Glomerular Filt Rate > 60; Glucose Random 127 mg/dL (60-115); Sodium 143 mmol/L (135-145)
[2023-06-03 16:45] LABS: Ethanol 366 mg/dL
[2023-06-03 17:06] LABS: Appearance Urine Clear; Color Urine Yellow; Glucose Urine UA Negative (Negative); Leukocyte Esterase Urine Negative (Negative); Nitrite Urine Negative (Negative); Urine Blood Negative (Negative); Urine Ketones Negative (Negative); Urine Protein Negative (Neg-Trace)
[2023-06-03 17:11] LABS: Bacteria Urine None Seen (None Seen); Hyaline Casts Urine 0-2 /LPF (0-2); RBC Urine 0-2 /HPF (0-2); Squamous Epithelial Cell Urine 0-2 /HPF (0-2); WBC Urine 0-5 /HPF (0-5)
[2023-06-03 17:14] LABS: Amphetamine Screen Urine Not Detected (Not Detect); Barbiturates, Urine Not Detected (Not Detect); Benzodiazepines Screen Urine Not Detected (Not Detect); Cannabinoid Screen Urine Not Detected (Not Detect); Cocaine Screen Urine Not Detected (Not Detect); Fentanyl, urine Not Detected (Not Detect); Opiate Screen Urine Not Detected (Not Detect); Phencyclidine Screen Urine Not Detected (Not Detect)
--- NOTE | 2023-06-03 18:08 | PC.NURSE ---
pt discharge pending sober ride home, pt aware, is coming to pick pt up.
--- NOTE | 2023-06-03 18:21 | PC.NURSE ---
family interested in having a gymnastics coach or instructor talk with pt, provider aware.
--- NOTE | 2023-06-03 18:30 | MHC.RECOVSUP ---
? Reason for consult Recovery support o Current location: [facility] o Identified substance use concern: Alcohol - Support ? Intervention: o Community resources provided o Harm reduction discussion ? Plan: o Patient to follow up with [facility] after discharge ? Additional information: Met with patient... Patient did not want ATS.. Patient family took the resource just incase client has a change of heart..
== END 2023-06-03 18:37 | disposition home or self-care (01) ==
PROVIDERS: Emergency Provider Emergency Medicine Emergency Medical Services; PCP Internal Medicine
DX: F10.10 Alcohol abuse, uncomplicated (principal); Y90.8 Blood alcohol level of 240 mg/100 ml or more; S09.90XA Unspecified injury of head, initial encounter; V43.02XA Car driver injured in collision with other type car in nontraffic accident, initial encounter; M54.2 Cervicalgia; E34.8 Other specified endocrine disorders; F41.9 Anxiety disorder, unspecified; F17.210 Nicotine dependence, cigarettes, uncomplicated; Z79.899 Other long term (current) drug therapy; Y93.89 Activity, other specified; Y92.481 Parking lot as the place of occurrence of the external cause; Y99.9 Unspecified external cause status
CPT/HCPCS: 36415; 70450; 72125; 80048; 80076; 80307; 81001; 85025; 99284; 99285

== ENCOUNTER 2023-06-07 15:51 | Outpatient (AMB) | payer OTHER, SELFPAY ==
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
[2023-06-07 16:00] VITALS: BP 132/70; BMI 26.9
== END 2023-06-07 16:17 | disposition home or self-care (01) ==
PROVIDERS: PCP Internal Medicine; Visit Provider Internal Medicine
DX: E34.8 Other specified endocrine disorders (principal); Z09 Encounter for follow-up examination after completed treatment for conditions other than malignant neoplasm; F33.9 Major depressive disorder, recurrent, unspecified; F10.10 Alcohol abuse, uncomplicated; K21.9 Gastro-esophageal reflux disease without esophagitis; Z23 Encounter for immunization; F17.210 Nicotine dependence, cigarettes, uncomplicated
CPT/HCPCS: 99214

== ENCOUNTER 2023-07-15 15:52 | Outpatient (REF) | payer OTHER, SELFPAY ==
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
[2023-07-15] MEDS: gadobutroL 10 ML VIAL IVPUSH (16:48)
== END 2023-07-15 15:53 | disposition home or self-care (01) ==
LOC: HO.MRI 15:52
PROVIDERS: PCP Internal Medicine; Visit Provider Internal Medicine
DX: E34.8 Other specified endocrine disorders (principal)
CPT/HCPCS: 70553; A9585

== ENCOUNTER 2023-08-17 14:28 | Emergency (ER) | payer OTHER, SELFPAY ==
[2023-08-17 14:44] VITALS: BP 126/84; PULSE 68; O2SAT 96
[2023-08-17 15:00] VITALS: BP 108/71; PULSE 88; RESP 17; TEMP 36.6; O2SAT 98; BMI 27.1
--- NOTE | 2023-08-17 15:02 | PC.NURSE ---
pt presents under the influence of alcohol- pt minimally cooperative for RN during triage- sitting in recliner.
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
--- NOTE | 2023-08-17 16:43 | MHC.RECOVSUP ---
Addendum entered by Deyvi Vega 08/17/23 17:34: Pt no longer interested in ATS at this time. Original Note: Met with pt in ED19H who is here for ROCIO. Pt informs he is drinking over 1 pint of alcohol a day and he cant remember when his last treatment was but was here when he was medically admitted. At this time pt is interested in ATS but will only go to [facility]. Pt family reported wanting to [address] pt.
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
== END 2023-08-17 20:17 | disposition home or self-care (01) ==
PROVIDERS: Emergency Provider Emergency Medicine; PCP Internal Medicine
DX: F10.129 Alcohol abuse with intoxication, unspecified (principal); Y90.9 Presence of alcohol in blood, level not specified; F17.210 Nicotine dependence, cigarettes, uncomplicated; Z71.6 Tobacco abuse counseling; Z79.899 Other long term (current) drug therapy
CPT/HCPCS: 99282

== ENCOUNTER 2023-08-17 22:08 | Emergency (ER) | payer OTHER, SELFPAY ==
[2023-08-17 22:16] VITALS: BP 126/90; PULSE 73; RESP 18; TEMP 36.3; O2SAT 96; BMI 32.9
--- NOTE | 2023-08-17 22:57 | ED.ALCOHOL ---
HPI - Alcohol General Chief Complaint: Behavioral Concerns Stated Complaint: ETOH Time Seen by Provider: 08/17/23 22:49 Source: patient and police Mode of arrival: EMS Limitations: no limitations History of Present Illness HPI narrative: 57 yo male with PMH of anemia, HTN, alcohol abuse just seen today and bed found at [facility] but patient refused. He is back again family is concerned for his safety he denies SI but has been making poor decisions while intoxicated - at this time family is hoping to get section 35 in the AM. He has no signs of trauma. He is upset he is here. complaint: alcohol intoxication Last drink: Just prior to admission Chronic alcohol use: Yes Previous visits for alcohol intoxication: Yes Recent trauma: No Associated symptoms: denies other symptoms Treatments prior to arrival: none Related Data Home Medications Medication Instructions Recorded Confirmed cholecalciferol (vitamin D3) 50 50 mcg PO DAILY 03/01/23 06/07/23 mcg (2,000 unit) capsule ibuprofen 800 mg tablet 800 mg PO TID 03/01/23 06/07/23 multivitamin 1 tab PO DAILY 03/01/23 06/07/23 vitamin B complex (Complex B-100 1 tab PO DAILY 03/01/23 06/07/23 tablet,extended release) Previous Rx's Medication Instructions Recorded blood pressure monitor (Blood #1 ea 04/19/23 Pressure Kit) escitalopram oxalate 20 mg tablet 20 mg PO DAILY #90 tabs 04/19/23 acamprosate 333 mg tablet,delayed 666 mg (2 x 333 mg) PO TID 30 days 08/06/23 release #180 tabs omeprazole 20 mg capsule,delayed 20 mg PO DAILY #90 caps 08/09/23 release Allergies Allergy/AdvReac Type Severity Reaction Status Date / Time No Known Allergies Allergy Verified 06/07/23 16:05 [No Known Allergies*] Review of Systems Review of Systems: ROS unable to be obtained due to intoxication PMFSH Past Medical History Attestation statement: The following information was validated with the patient. Source: old records reviewed Medical History Numbness of left hand Hiatal hernia Alcohol abuse GERD (gastroesophageal reflux disease) Tobacco abuse Obstructive sleep apnea Surgical History No pertinent past surgical history Family History Family History Father Alcohol abuse Mother Cancer Brother No problems noted. Brother No problems noted. Sister No problems noted. Sister No problems noted. Sister No problems noted. Daughter No problems noted. Son No problems noted. Social History Social History Housing: Apartment Alcohol intake: current Alcohol intake frequency: 3 or more drinks per day Alcohol type: hard liquor Patient Tobacco Use Status: Current everyday Tobacco user Tobacco use type: Cigarette Cigarette Packs Per Day: 10 Years Smoked: pack Q 2 days e-Cigarette/Vaping Use: Never Used Second Hand Smoke Exposure: Yes Advance Directives: No Advance Directives Information Provided: No service: No Current occupational status: unemployed Cognitive needs: No Hearing needs: No Vision needs: Yes Physical Exam ED Vital Signs: Vital Signs - 24 hr 08/17/23 22:16 Temperature 97.3 F Pulse Rate 73 Respiratory Rate 18 Blood Pressure 126/90 H Pulse Oximetry 96 Oxygen Delivery Method Room Air BMI result Body Mass Index 32.9 Appearance: Alert. ETOH odor, slurred speech No acute distress. Eyes: Pupils equal, round and reactive to light. ENT: Pharynx normal. Atraumatic Neck: Normal inspection. Neck supple. CVS: Normal heart rate and rhythm. Pulses normal. Respiratory: No respiratory distress. Breath sounds normal. Abdomen: Soft and nontender. Skin: Skin warm and dry. Normal skin color. Normal skin turgor. Extremities: No lower extremity edema. No calf ttp Neuro: Oriented X 3. No motor deficit. No sensory deficit. CN2-12 intact Medical Decision Making Medical Decision Making MDM Narrative: 57 yo male with PMH of anemia, HTN, alcohol abuse here with c/o intoxication denies SI - family wants him on S35 he just left after being offered logan bed. I see no signs of trauma. Will obtain POC blood sugar. He is not toxic. Differential Diagnosis Differential Diagnoses: The differential diagnosis associated with the presentation includes alcohol use disorder Admission/Observation Consideration of admission/observation: Escalation of care including admission/observation considered observe until the AM likely S35 by family in AM Patient placed in physician observation at 1101pm. The indication for observation is that the patient needs more time sober up from ETOH. At this time the patient is intoxicated, lungs clear, CV RRR, abd nontender, neuro is intact, he is agitated and using profane terms with staff - will give ODT zyprexa for agitation Discharge Plan Discharge Clinical Impression: Alcohol use disorder Patient Disposition: Still a Patient Instructions: Abuse of Alcohol (ED) Prescriptions: No Action acamprosate 333 mg tablet,delayed release (DR/EC) 666 mg PO TID 30 Days Qty: 180 0RF Rx Instructions: administer with mid-day and evening meals omeprazole 20 mg capsule,delayed release(DR/EC) 20 mg PO DAILY Qty: 90 3RF ibuprofen 800 mg tablet 800 mg PO TID multivitamin Tablet 1 tab PO DAILY Complex B-100 Tablet Extended Release 1 tab PO DAILY cholecalciferol (vitamin D3) 50 mcg (2,000 unit) capsule 50 mcg PO DAILY (DME) blood pressure monitor [Blood Pressure Kit] Kit See Rx Instructions .ROUTE .MEDSUPPLY Qty: 1 0RF Rx Instructions: As directed escitalopram oxalate 20 mg tablet 20 mg PO DAILY Qty: 90 1RF
[2023-08-17] MEDS: OLANZapine ODT 10 MG TAB.RAPDIS TRANSLINGU (23:05)
--- NOTE | 2023-08-17 23:56 | MHC.EDTECH ---
pt belongings placed in locker #10
--- NOTE | 2023-08-17 23:58 | PC.NURSE ---
Addendum entered by Leticia Chowdary 08/18/23 00:28: Derrick can be reached at [phone]. States she would like to be contacted by CARE team when evaluated. Also states she is coming from [place] and will be here in the AM to get pt sectioned. Original Note: Spoke with pts daughter Derrick Dennison, given update on POC. Can be reached
[2023-08-18] VITALS (7 sets, daily range): BP systolic 111–139; BP diastolic 64–80; PULSE 71–91; RESP 16–20; TEMP 36.3–36.8; O2SAT 96–100
[2023-08-18 00:17] LABS: Glucose, Whole Blood 131 mg/dL (60-115)
--- NOTE | 2023-08-18 00:19 | PC.NURSE ---
pt resting comfortably in bed with eyes closed, breathing even and unlabored. no apparent distress noted at this time. pt unable/unwilling to answer questions
--- NOTE | 2023-08-18 02:14 | MHC.EDTECH ---
Hourly rounds and vitals completed,patient is sleeping at this time.
--- NOTE | 2023-08-18 05:57 | PC.NURSE ---
pt slept throughout the whole shift. breathing has been even and unlabored, no distress noted
--- NOTE | 2023-08-18 06:45 | MHC.EDTECH ---
Hourly rounds and vitals completed
[2023-08-18 08:50] LABS: Glucose, Whole Blood 155 mg/dL (60-115)
--- NOTE | 2023-08-18 11:51 | PC.NURSE ---
FAMILY AT BEDSIDE. DAUGHTER AT THIS MOMENT IS SPEAKING WITH [employer]INE [employer]PERATOR (NASRA). PT AWARE OF PLAN OF CARE.
[2023-08-18 11:56] LABS: Glucose, Whole Blood 115 mg/dL (60-115)
--- NOTE | 2023-08-18 12:15 | PC.NURSE ---
PT'S D/C INSTRUCTIONS GIVEN TO PT'S DAUGHTER WHO CAME UP FROM [facility].
== END 2023-08-18 12:33 | disposition home or self-care (01) ==
PROVIDERS: Emergency Provider Emergency Medicine
DX: F10.129 Alcohol abuse with intoxication, unspecified (principal); Y90.9 Presence of alcohol in blood, level not specified; F17.210 Nicotine dependence, cigarettes, uncomplicated; Z71.6 Tobacco abuse counseling; Z79.899 Other long term (current) drug therapy
CPT/HCPCS: 82947; 99284

== ENCOUNTER 2023-12-14 09:20 | Outpatient (REF) | payer OTHER, SELFPAY ==
[2023-12-14 12:25] LABS: Free T4 (Free Thyroxine) 0.78 ng/dL (0.71-1.85)
[2023-12-15 07:18] LABS: Follicle Stimulating Hormone 6.2 mIU/mL (1.4-12.8); Lutenizing Hormone 3.6 mIU/mL (1.5-9.3); Prolactin 7.9 ng/mL (2.0-18.0)
[2023-12-18 07:34] LABS: Adrenocorticotropic Hormone 25 pg/mL (6-50)
[2023-12-22 12:48] LABS: IGF-1 (Somatomedin C) 61 ng/mL (50-317); IGF-1 Z Score (Male) -1.5 SD (-2.0 - +2.0)
== END 2023-12-14 09:21 | disposition home or self-care (01) ==
LOC: HO.LAB 09:20
PROVIDERS: PCP Internal Medicine; Visit Provider Internal Medicine Endocrinology, Diabetes & Metabolism
DX: E34.8 Other specified endocrine disorders (principal); D35.2 Benign neoplasm of pituitary gland
CPT/HCPCS: 82024; 82533; 83001; 83002; 83520; 84146; 84305; 84439; 84443

== ENCOUNTER 2023-12-27 11:22 | Outpatient (AMB) | payer OTHER, SELFPAY ==
--- NOTE | 2023-12-27 11:32 | A.OFFPC_ITS ---
Vital Signs 12/27/23 11:35 Height 5 ft 7 in Weight 196 lb BMI 30.7 BP 124/70 Blood Pressure Location Lt brachial Position Sitting Pulse 71 Pulse Source Pulse Oximeter Pulse Oximetry (%) 97 Oxygen Delivery Method Room Air Intake Visit Reasons: PE Allergies No Known Allergies [No Known Allergies*] Allergy (Verified 12/27/23 11:36) Medication List - Last Reconciled 12/27/23 by Tavia Arellano MD acamprosate 666 mg (2 x 333 mg) PO TID 30 days blood pressure monitor (Blood Pressure Kit) As directed cholecalciferol (vitamin D3) 50 mcg PO DAILY clonidine HCl 0.1 mg PO BID ibuprofen 800 mg PO TID multivitamin 1 tab PO DAILY omeprazole 20 mg PO DAILY sertraline 50 mg PO DAILY vitamin B complex ER (Complex B-100 tablet,extended release) 1 tab PO DAILY Tobacco use date assessed: 12/27/23 Dental Screening Dental Screen Date: 12/27/23 Did you have a dental visit in the last 12 months?: Yes Did you have a dental problem in the last 6 months where you did not have access to dental care?: No Was dental information given to patient?: Patient has dentist HPI PE HPI Details 67-year-old obese female with impaired g lucose tolerance hypercholesterolemia thyroid nodule left wrist pain last seen in September 2023. Patient's mammogram is due,. Patient did see Ophthalmology, Endocrinology biopsy done September 2022 bilateral nodules benign cytology and the other nondiagnostic referred to [facility] endocrinology for 2nd opinion. Bárbara obrien. placed section 35 by daughter so far has not drank since august, dizzy, CPAP Q nightly and helps . occ constipation. PAtent saw Dr. Andrade [facility] Medical History Numbness of left hand Hiatal hernia Alcohol abuse GERD (gastroesophageal reflux disease) Tobacco abuse Obstructive sleep apnea Surgical History No pertinent past surgical history Family History (Updated 12/27/23 @ 12:12 by Tavia Arellano MD) Father Alcohol abuse Mother Cancer Brother No problems noted. Brother Heart attack Sister No problems noted. Sister No problems noted. Sister No problems noted. Daughter No problems noted. Son No problems noted. Social History (Updated 12/27/23 @ 12:12 by Tavia Arellano MD) Housing: Apartment Alcohol intake: current Alcohol intake frequency: 3 or more drinks per day Alcohol type: hard liquor Comment: stopped 08/2023(told 12/2023) Patient Tobacco Use Status: Current everyday Tobacco user Tobacco use type: Cigarette Cigarette Packs Per Day: 10 Years Smoked: pack Q 2 days e-Cigarette/Vaping Use: Never Used Second Hand Smoke Exposure: Yes service: No Current occupational status: unemployed Cognitive needs: No Hearing needs: No Vision needs: Yes Questionnaire PHQ-9 Over the last 2 weeks, how often have you been bothered by any of the following problems? 1. Little interest or pleasure in doing things: several days 2. Feeling down, depressed, or hopeless: several days 3. Trouble falling or staying asleep, or sleeping too much: not at all 4. Feeling tired or having little energy: not at all 5. Poor appetite or overeating: not at all 6. Feeling bad about yourself - or that you are a failure or have let yourself or your family down: not at all 7. Trouble concentrating on things, such as reading the newspaper or watching television: not at all 8. Moving or speaking so slowly that other people could have noticed. Or the opposite - being so fidgety or restless that you have been moving around a lot more than usual: not at all 9. Thoughts that you would be better off or of hurting yourself in some way: not at all Total score: 2 Depression Screening Interpretation: Negative Depression Screening Done: Yes Source: Developed by Drs. Lobito Wise, Annamarie Springer, Oumar Soler and colleagues, with an educational sarwat from [employer]. Thrive Questionnaire Date Thrive assessed: 12/27/23 I am a: Patient What is your living situation today?: I have a steady place to live Within the past 12 months, did the food you bought not last and you didn't have the money to get more?: Never true Within the past 12 months, did you worry whether your food would run out before you got money to buy more?: Never true Do you have trouble paying for medicines?: No Do you have trouble getting transportation to medical appointments?: No Do you have trouble paying your heating and electricity bill?: No Do you have trouble taking care of your child, family member or friend?: No Do you have trouble with day-to-day activities such as bathing, preparing meals, shopping, managing finances, etc.?: No Are you currently unemployed and looking for a job?: No Are you interested in more education?: No Currently or been in a relationship where the following occur: no concerns reported THRIVE Score: 0 AUDIT C Alcohol Use Questionnaire (AUDIT-C) 1. How often do you have a drink containing alcohol?: 4 or more times a week 2. How many drinks containing alcohol do you have on a typical day when you are drinking?: 10 or more 3. How often do you have six or more drinks on one occasion?: Daily or almost daily Total Score: 12 YVONNE-7 AMB Questionnaire YVONNE-7 Date YVONNE - 7 assessed: 12/27/23 Feeling nervous, anxious, or on edge: 0 = Not at all Not being able to stop or control worryin = Not at all Worrying too much about different things: 0 = Not at all Trouble relaxin = Not at all Being so restless that it is hard to sit still: 0 = Not at all Becoming easily annoyed or irritable: 0 = Not at all Feeling afraid as if something awful might happen: 0 = Not at all Total YVONNE-7 score (0-4 normal; 5-9 mild; 10-14 moderate; 15-21 severe): 0 Source: Developed by Drs. Lobito Wise, Annamarie Springer, Oumar Soler and colleagues, with an educational sarwat from [employer]. Review of Systems Const Denies poor appetite and Denies weakness Eyes Denies no additional complaints ENT Reports Normal hearing present, Denies dizziness, Denies nasal congestion, Denies tinnitus and Denies sore throat Card Denies chest pain, Denies syncope, Denies rapid heart rate and Denies dyspnea Resp Denies cough and Denies dyspnea GI Denies change in stool character, Reports constipation, Denies diarrhea, Denies nausea and Denies vomiting Denies dysuria and Denies urinary frequency Neuro Reports Normal hearing present, Denies confusion, Denies dizziness, Denies syncope and Denies weakness Psych Denies confusion Physical exam (Primary Care) Vital Signs: Last Vital Signs Pulse 71 12/27/23 11:35 BP 124/70 12/27/23 11:35 Pulse Ox 97 12/27/23 11:35 Oxygen Delivery Method Room Air 12/27/23 11:35 BMI result Body Mass Index 30.7 Tobacco/Smoking Status: Tobacco use Status Tobacco use date assessed 12/27/23 12/27/23 11:37 Patient Tobacco Use Status Current everyday Tobacco 12/27/23 12:12 Tobacco use type Cigarette 12/27/23 12:12 e-Cigarette/Vaping Use Never Used 12/27/23 12:12 PHQ-9: PHQ-9 Score PHQ-9: Total score 2 12/27/23 12:03 Depression Screening Interpretation: Negative Thrive Assessment: Date of Thrive Assessment Date Thrive assessed 12/27/23 12/27/23 11:37 Currently or been in a relationship where the following occur: no concerns reported Const General: No confusion Orientation/consciousness: No confusion HENMT Head: Yes normocephalic Ears: external ears normal and TM's normal bilaterally Face and sinus: Yes normal facial exam Mouth: moist mucous membranes Throat: Yes tonsils normal Eyes Conjunctivae: conjunctivae normal Pupils: Equal, round and reactive pupils present and Pupil accommodation reflex normal Direct Ophthalmoscopy: normal light reflex Neck Neck: No lymphadenopathy Thyroid: Thyroid normal Chest Chest palpation & inspection: normal inspection of the chest Resp Effort & Inspection: normal respiratory effort and no audible wheezes Auscultation: clear to auscultation bilaterally, no crackles, no wheezes and lung sounds not diminished Cardio Rate: regular rate Rhythm: regular rhythm Peripheral pulses: radial pulses present and dorsalis pedis present GI Palpation (GI): no masses Auscultation: normal bowel sounds and normoactive bowel sounds Rectal Exam - Male: Yes deferred Skin General skin exam: no rashes or lesions noted Rashes: no rashes Neuro General: No confusion Cranial nerves: Yes Equal, round and reactive pupils present and Yes Normal hearing present Cognition (Neuro): normal cognition Gait exam (Neuro): Normal gait present Motor exam (neuro): 5/5 motor strength present throughout Deep tendon reflexes (DTR's): Right brachioradialis reflex intensity grade: 2+, Left brachioradialis reflex intensity grade: 2+, Right patellar reflex intensity grade: 2+ and Left patellar reflex intensity grade: 2+ Extrem General: No edema Immunizations pneumoc 20-rea conj-dip cr(PF) 0.5 mL IM syringe Performing Provider: Tavia Arellano MD [facility]forming [facility] Administered by: ADDISON Bro on 12/27/23 12:53 Dose Route Admin Location Dispensed Lot Number Expiration Date NDC Prefabricated Houses Trimmer 0.5 mL IM Left Deltoid 0.5 mL [id number] 01/04/25 4009-0774-03 [employer] VIS Given Date VIS Provided VIS Publication Date 12/27/23 Single Vaccine 21 Eligibility Eligibility Date Funding Source Not VFC Eligible 12/27/23 Private Assessment and Plan Assessment & Plan (1) Physical exam, annual: Code(s): Z00.00 - Encounter for general adult medical examination without abnormal findings (2) Tobacco abuse: Code(s): Z72.0 - Tobacco use Plan: Patient is strongly advised to stop smoking (3) Alcohol abuse: Code(s): F10.10 - Alcohol abuse, uncomplicated Plan: Patient was advised to abstain from alcohol (4) Obstructive sleep apnea: Comment: Moderately severe degree of sleep apnea. The AHI was 28/hr and oxygen rhonda was 75 %. Code(s): G47.33 - Obstructive sleep apnea (adult) (pediatric) Plan: Discussion with the patient regarding CPAP treatment (5) Recurrent major depression: Comment: Declined referral for counseling Code(s): F33.9 - Major depressive disorder, recurrent, unspecified Plan: Advised counseling and therapy (6) Anemia: Code(s): D64.9 - Anemia, unspecified Plan: Continuing to monitor (7) Obesity (BMI 30.0-34.9): Code(s): E66.9 - Obesity, unspecified Plan: Diet and exercise (8) Constipation: Code(s): K59.00 - Constipation, unspecified (9) Dysuria: Code(s): R30.0 - Dysuria Orders: Orders UA CC w/rflx Micro + Cult Today R30.0 - Dysuria Comprehensive Met. Panel Today R79.89 - Other specified abnormal findings of blood chemistry Ferritin Today R79.89 - Other specified abnormal findings of blood chemistry Reticulocyte Count Today K21.9 - Gastro-esophageal reflux disease without esophagitis US bladder Today R30.0 - Dysuria Complete Blood Count Auto Diff Today R79.89 - Other specified abnormal findings of blood chemistry IRON PROFILE Today R79.89 - Other specified abnormal findings of blood chemistry Thyroid Stimulating Hormone Today K21.9 - Gastro-esophageal reflux disease without esophagitis Free T4 (Free Thyroxine) Today K21.9 - Gastro-esophageal reflux disease without esophagitis Vitamin B12 and Folate Today K21.9 - Gastro-esophageal reflux disease without esophagitis Prostate Specific Antigen Scr Today K21.9 - Gastro-esophageal reflux disease without esophagitis Lipid Panel Today E78.00 - Pure hypercholesterolemia, unspecified, K21.9 - Gastro-esophageal reflux disease without esophagitis Pneumococcal 20 Immunization Today Z23 - Encounter for immunization Referrals Neurosurgery Referral E34.8 - Other specified endocrine disorders Gastroenterology Referral K21.9 - Gastro-esophageal reflux disease without esophagitis Medications: New sennosides-docusate sodium 8.6-50 mg (Senna Plus) 2 tab-caps (2 x 8.6-50 mg) PO BEDTIME 60 caps 1RF K59.00 - Constipation, unspecified albuterol sulfate 90 mcg/actuation (Ventolin HFA) 2 puffs inhalation Q6H PRN 8.5 grams 0RF shortness of breath or wheezing Z72.0 - Tobacco use pneumoc 20-rea conj-dip cr(PF) 0.5 mL IM ONCE 0.5 mL 0RF Z23 - Encounter for immunization Coding Level of Care Code Est Pt Prev Care 40-64y(81631) Diagnoses Physical exam, annual Z00.00 Tobacco abuse Z72.0 Alcohol abuse F10.10 Obstructive sleep apnea G47.33 Recurrent major depression F33.9 Anemia D64.9 Obesity (BMI 30.0-34.9) E66.9 Constipation K59.00 Dysuria R30.0
[2023-12-27 11:35] VITALS: BP 124/70; PULSE 71; O2SAT 97; BMI 30.7
== END 2023-12-27 12:48 | disposition home or self-care (01) ==
LOC: HO.HMGH 11:28
PROVIDERS: PCP Internal Medicine; Visit Provider Internal Medicine
DX: Z23 Encounter for immunization (principal); Z00.00 Encounter for general adult medical examination without abnormal findings; Z72.0 Tobacco use; F33.9 Major depressive disorder, recurrent, unspecified; F10.10 Alcohol abuse, uncomplicated; G47.33 Obstructive sleep apnea (adult) (pediatric); D64.9 Anemia, unspecified; E66.9 Obesity, unspecified; K59.00 Constipation, unspecified; R30.0 Dysuria
CPT/HCPCS: 90471; 90677; 99396

== ENCOUNTER 2024-01-10 10:43 | Outpatient (REF) | payer OTHER, SELFPAY | END 2024-01-10 10:44 | disposition home or self-care (01) | LOC: HO.US 10:43 | PROVIDERS: PCP Internal Medicine; Visit Provider Internal Medicine | DX: Z13.89 Encounter for screening for other disorder (principal) ==

== ENCOUNTER 2024-01-12 07:26 | Outpatient (REF) | payer OTHER, SELFPAY ==
--- NOTE | ~2024-01-12 | US_ITS ---
EXAMINATION: US PELVIS LIMITED (BLADDER) CLINICAL INFORMATION: Dysuria. COMPARISON: CT abdomen and pelvis 06/02/2021. Ultrasound abdomen complete 04/14/2021. TECHNIQUE: Real-time imaging of the bladder. FINDINGS: BLADDER: Well distended. Bilateral ureteral jets are demonstrated. Prevoid bladder volume is 401.6 mL. Postvoid bladder volume is 61.8 mL. Mild diffuse thickening and irregularity of the bladder wall with possible trabeculations. Mild low-level internal echoes characteristic of debris within the bladder. [employer] As[employer]er observed an echogenic area in nondependent portions of bowel of indeterminant etiology and significance, although visualization limited due to artifact and bowel gas. ADDITIONAL FINDINGS: Enlarged prostate volume 42.1 mL. US/US bladder IMPRESSION: 1. Mild diffuse thickening and irregularity of the bladder wall with possible trabeculations. Mild low-level internal echoes characteristic of debris within the bladder. 2. Enlarged prostate volume 42.1 mL. 3. Electric [employer]ers Assembler observed an echogenic area in nondependent portions of bowel of indeterminant etiology and significance, although visualization limited due to artifact and bowel gas. 4. Correlation with clinical exam urology consultation recommended to determine further management including possible direct visualization with cystoscopy.
== END 2024-01-12 07:27 | disposition home or self-care (01) ==
LOC: HO.US 07:26
PROVIDERS: PCP Internal Medicine; Visit Provider Internal Medicine
DX: R30.0 Dysuria (principal)
CPT/HCPCS: 76857

== ENCOUNTER 2024-03-02 08:32 | Outpatient (REF) | payer OTHER, SELFPAY ==
[2024-03-02 08:58] LABS: Immature Retic Fraction 12.1 % (2.3-13.4); Retic HGB Equivalent 38.4 pg (30.0-35.0); Reticulocyte Percent 2.7 % (0.5-1.8); Reticulocytes Absolute 0.112 X10*6/uL (0.026-0.095)
[2024-03-02 09:33] LABS: Cholesterol 204 mg/dL (<200); HDL Cholesterol 61 mg/dL (>40); LDL Cholesterol Calculated 108 mg/dL (<100); Triglycerides 177 mg/dL (<150)
[2024-03-02 09:52] LABS: Free T4 (Free Thyroxine) 0.99 ng/dL (0.71-1.85); Thyroid Stimulating Hormone 1.42 uIU/mL (0.32-4.0)
[2024-03-02 10:01] LABS: Appearance Urine Clear; Color Urine Dark Yellow; Glucose Urine UA Negative (Negative); Leukocyte Esterase Urine Negative (Negative); Nitrite Urine Negative (Negative); PH 5.5 (5.0-9.0); Specific Gravity - Urine 1.015 (1.005-1.025); Urine Blood Negative (Negative); Urine Ketones Negative (Negative); Urine Protein Negative (Neg-Trace)
[2024-03-02 11:38] LABS: Folate 10.4 ng/mL (> or = 4.0); Prostate Specific Antigen Scr 1.93 ng/mL (<0.05-4.0); Vitamin B12 398 pg/mL (200-900)
== END 2024-03-02 08:33 | disposition home or self-care (01) ==
LOC: HO.LAB 08:32
PROVIDERS: PCP Internal Medicine; Visit Provider Internal Medicine
DX: K21.9 Gastro-esophageal reflux disease without esophagitis (principal); R30.0 Dysuria; E78.00 Pure hypercholesterolemia, unspecified
CPT/HCPCS: 36415; 80061; 81003; 82607; 82746; 84153; 84439; 84443; 85045

== ENCOUNTER 2024-03-03 14:49 | Outpatient (AMB) | payer OTHER, SELFPAY ==
--- NOTE | 2024-03-03 14:54 | MHC.OFFVIS ---
Intake Visit Reasons: enlarged prostate, bladder wall thickening Intake Note: New Patient presents today for initial visit to establish treatment for : BPH Urology Medications: none Allergies to Antibiotic: none Blood Thinner: none PVR: 13ml's Director Human Services Required: No Accompanied by: Unknown Allergies No Known Allergies [No Known Allergies*] Allergy (Verified 03/03/24 15:23) Medication List - Last Reconciled 03/03/24 by ZACHARY Claros-DELBERT acamprosate 666 mg (2 x 333 mg) PO TID 30 days albuterol sulfate 90 mcg/actuation (Ventolin HFA) 2 puffs inhalation Q6H PRN blood pressure monitor (Blood Pressure Kit) As directed bupropion HCl XL 300 mg PO DAILY cholecalciferol (vitamin D3) 50 mcg PO DAILY clonidine HCl 0.1 mg PO BID ibuprofen 800 mg PO TID multivitamin 1 tab PO DAILY omeprazole 20 mg PO DAILY sennosides-docusate sodium 8.6-50 mg (Senna Plus) 2 tab-caps (2 x 8.6-50 mg) PO BEDTIME sertraline 50 mg PO DAILY vitamin B complex ER (Complex B-100 tablet,extended release) 1 tab PO DAILY HPI Comments Details: Surendra is a 58-year-old male patient of Dr. Arellano who was accompanied by his significant other at today's office visit. He has a past medical history of hiatal hernia, alcohol abuse, GERD, tobacco abuse, and obstructive sleep apnea. He presents to the office today as a new patient for bladder wall thickening and enlarged prostate. In discussion with the patient today he reports having followed up with his PCP in discussing weak urinary stream at which time a bladder ultrasound was ordered for further assessment evaluation. These results were reviewed with the patient today. Mild diffuse thickening and irregularity of the bladder wall with possible trabeculations. Mild low level internal echoes characteristic of debris within the bladder. Enlarged prostate volume of 42 mL. Per radiology report correlation with clinical exam urology consultation is recommended to determine further management including possible direct visualization with cystoscopy. In office urinalysis results reviewed with the patient today. PVR 13 mL. He discusses noting weak urinary stream when he is not consuming alcohol. However when he is drinking alcohol he feels he has a good urinary stream. He otherwise denies urinary urgency, urinary frequency, incontinence, nocturia, hematuria, dysuria, foul smelling urine, flank pain, fever, and or chills. He otherwise offers no other issues or concerns at this time. In review of patient's chart PSA are as follows: PSAs: 11/22 2.4, 04/26 2.4, 10/29 1.8, 02/27 1.9 [facility] Medical History Numbness of left hand Hiatal hernia Alcohol abuse GERD (gastroesophageal reflux disease) Tobacco abuse Obstructive sleep apnea Surgical History No pertinent past surgical history Family History Father Alcohol abuse Mother Cancer Brother No problems noted. Brother Heart attack Sister No problems noted. Sister No problems noted. Sister No problems noted. Daughter No problems noted. Son No problems noted. Social History Housing: Apartment Alcohol intake: current Alcohol intake frequency: 3 or more drinks per day Alcohol type: hard liquor Comment: stopped 08/2023(told 12/2023) Patient Tobacco Use Status: Current everyday Tobacco user Tobacco use type: Cigarette Cigarette Packs Per Day: 10 Years Smoked: pack Q 2 days e-Cigarette/Vaping Use: Never Used Second Hand Smoke Exposure: Yes service: No Current occupational status: unemployed Cognitive needs: No Hearing needs: No Vision needs: Yes Review of Systems Eyes Reports no additional complaints ENT Reports no additional complaints Card Reports as per HPI Resp Reports as per HPI GI Reports no additional complaints Reports as per HPI Musc Reports no additional complaints Neuro Reports no additional complaints Psych Reports as per HPI Endo Reports no additional complaints Keith/Lymph Reports no additional complaints Aller/Immun Reports no additional complaints Physical Exam Const General: cooperative, healthy appearing, comfortable, no acute distress, well developed, alert and awake Nutritional Appearance: overweight Orientation/consciousness: patient oriented x3 Limitations: no limitations HEENT Head: Yes normal to inspection, Yes normocephalic and Yes atraumatic Ears: hearing grossly normal bilaterally Eyes General: appearance normal, both eyes and all related structures Neck Neck: Yes normal visual inspection and Yes trachea midline Chest Chest palpation & inspection: normal inspection of the chest Resp Effort & Inspection: normal respiratory effort and able to speak in complete sentences Cardio Rate: regular rate GI Inspection: Yes normal to inspection General: Yes no CVA tenderness Back/Spine/Pelvis Back: no CVA tenderness Skin General skin exam: no rashes or lesions noted Neuro General: patient oriented x3 Extrem General: Yes normal to inspection Psych Appearance: grossly normal and well kempt Mental Status: mental status grossly normal Speech and movement: Normal speech and movement present and Clear speech present Affect: normal affect Attitude: cooperative Thought process: Normal thought process present Thought content: Normal thought content present Insight: Fair insight present (Psych) Judgement: Fair judgement present (Psych) Office Procedures Post Void Residual Post Residual Void Post Void Residual (PVR): 13 [id number] Void Residual by ultrasound Results AMB Urinalysis, Automated UA Leukoctes 0 Niurka/uL Last Edit by Terascala on 03/03/24 15:11 UA Nitrite Negative Last Edit by Terascala on 03/03/24 15:11 UA Urobilinogen 0.2 mg/dL Last Edit by Terascala on 03/03/24 15:11 UA Protein 0 mg/dL Last Edit by Terascala on 03/03/24 15:11 UA pH 6.0 Last Edit by Terascala on 03/03/24 15:11 UA Blood 0 Eladio/uL Last Edit by Terascala on 03/03/24 15:11 UA Specific [place] 1.005 Last Edit by Terascala on 03/03/24 15:11 UA Ketone Negative Last Edit by Terascala on 03/03/24 15:11 UA Bilirubin 0 mg/dL Last Edit by Terascala on 03/03/24 15:11 UA Glucose 0 mg/dL Last Edit by Terascala on 03/03/24 15:11 Results Reviewed Results Reviewed: Laboratory Last Values Urine pH (Auto) 6.0 03/03/24 15:08 Specific [place] (Auto) 1.005 03/03/24 15:08 Urine Protein (Auto) 0 mg/dL 03/03/24 15:08 Glucose (UA)(Auto) 0 mg/dL 03/03/24 15:08 Urine Ketones (Auto) Negative 03/03/24 15:08 Urine Blood (Auto) 0 Eladio/uL 03/03/24 15:08 Urine Nitrite (Auto) Negative 03/03/24 15:08 Urine Bilirubin (Auto) 0 mg/dL 03/03/24 15:08 Urine Urobilinogen (Auto) 0.2 mg/dL 03/03/24 15:08 Leukocyte Esterase (Auto) 0 Niurka/uL 03/03/24 15:08 Date of Service: 01/12/24 EXAMINATION: US PELVIS LIMITED (BLADDER) FINDINGS: BLADDER: Well distended. Bilateral ureteral jets are demonstrated. Prevoid bladder volume is 401.6 mL. Postvoid bladder volume is 61.8 mL. Mild diffuse thickening and irregularity of the bladder wall with possible trabeculations. Mild low-level internal echoes characteristic of debris within the bladder. Hand Grinder observed an echogenic area in nondependent portions of bowel of indeterminant etiology and significance, although visualization limited due to artifact and bowel gas. ADDITIONAL FINDINGS: Enlarged prostate volume 42.1 mL. IMPRESSION: 1. Mild diffuse thickening and irregularity of the bladder wall with possible trabeculations. Mild low-level internal echoes characteristic of debris within the bladder. 2. Enlarged prostate volume 42.1 mL. 3. Hand Grinder observed an echogenic area in nondependent portions of bowel of indeterminant etiology and significance, although visualization limited due to artifact and bowel gas. 4. Correlation with clinical exam urology consultation recommended to determine further management including possible direct visualization with cystoscopy. Assessment & Plan Assessment & Plan (1) Enlarged prostate: Code(s): N40.0 - Benign prostatic hyperplasia without lower urinary tract symptoms Category: Medical (2) Weak urinary stream: Code(s): R39.12 - Poor urinary stream Category: Medical (3) Bladder trabeculation: Code(s): N32.89 - Other specified disorders of bladder Category: Medical Plan In office urinalysis results reviewed with the patient and his significant other today; as noted above. PVR 13 mL Discussed at length potential causes for trabeculated bladder wall, enlarged prostate, and weak urinary stream. Discussed possible near future in office cystoscopy for further assessment evaluation. Start Flomax as discussed and prescribed. Start finasteride as discussed and prescribed. Discussed and stressed the importance of limiting/quitting nicotine and alcohol dependence for overall health and well being. Will obtain PSA. Follow-up in 3 months with lab and PVR at next office visit; or sooner with any issues, concerns, and or questions. Orders: Orders AMB Urinalysis Automated Today Z13.9 - Encounter for screening, unspecified Prostate Specific Antigen 4 Months N40.0 - Benign prostatic hyperplasia without lower urinary tract symptoms, R39.12 - Poor urinary stream Urine Cytology Today Z72.0 - Tobacco use AMB Post Void Residual by ultrasound Today N40.0 - Benign prostatic hyperplasia without lower urinary tract symptoms Medications: New finasteride 5 mg PO DAILY 30 days 30 tabs 1RF N40.1 - Benign prostatic hyperplasia with lower urinary tract symptoms, R33.9 - Retention of urine, unspecified tamsulosin 0.4 mg PO BEDTIME 30 days 30 caps 1RF N40.1 - Benign prostatic hyperplasia with lower urinary tract symptoms, R35.1 - Nocturia Patient Instructions: The patient had an opportunity to ask questions regarding the treatment plan. All questions were answered. Physical exam, labs, and imaging were discussed and reviewed in detail. As well as risks, benefits, and discussion of treatment choices. No major barriers to understanding were identified. The patient expressed understanding and agreement with the above treatment plan. The patient was made aware they should contact our office by phone for worsening of their current condition, the appearance of new symptoms, or with any questions or concerns. Compliance is encouraged with any medications and follow up testing that is ordered. It is a privilege to be allowed the opportunity to participate in? your urological care.? Again, if you have any questions or concerns If you have any questions or concerns please do not hesitate to contact me. The office is [phone]. This note is constructed using voice recognition software. While every effort has been made to ensure accuracy chemical lab supervisor errors may have been included. Yours sincerely, LISA Claros Coding Level of Care Code New Pt Level 4 (55515) Diagnoses Enlarged prostate N40.0 Weak urinary stream R39.12 Bladder trabeculation N32.89 CPT Codes Post Residual Void - PVR CPT Code: 49148-Ilts Void Residual by ultrasound ([id number])
== END 2024-03-03 15:22 | disposition home or self-care (01) ==
LOC: HO.HUSH 14:49
PROVIDERS: PCP Internal Medicine; Visit Provider Nurse Practitioner Family
DX: N40.0 Benign prostatic hyperplasia without lower urinary tract symptoms (principal); R39.12 Poor urinary stream; N32.89 Other specified disorders of bladder; Z13.9 Encounter for screening, unspecified
CPT/HCPCS: 99204

== ENCOUNTER 2024-03-03 14:49 | Outpatient (REF) | payer OTHER, SELFPAY ==
[2024-03-03 16:00] LABS: Urine Cytology See Pathology rpt
== END 2024-03-03 14:50 | disposition home or self-care (01) ==
LOC: HO.LNP 14:49
PROVIDERS: PCP Internal Medicine; Visit Provider Nurse Practitioner Family
DX: N40.1 Benign prostatic hyperplasia with lower urinary tract symptoms (principal); N32.89 Other specified disorders of bladder; R39.12 Poor urinary stream; R33.9 Retention of urine, unspecified; R35.1 Nocturia; Z72.0 Tobacco use
CPT/HCPCS: 51798; 81003; 88112; 99202

== ENCOUNTER 2024-03-14 14:36 | Emergency (ER) | payer OTHER, SELFPAY ==
[2024-03-14 16:01] VITALS: BP 144/97; PULSE 89; RESP 18; TEMP 36.9; O2SAT 97; BMI 29.0
--- NOTE | 2024-03-14 16:03 | ECG_ITS ---
Test Reason : RULE OUT ELONGATED QTC Blood Pressure : / mmHG Vent. Rate : 081 BPM Atrial Rate : 081 BPM P-R Int : 200 ms QRS Dur : 098 ms QT Int : 384 ms P-R-T Axes : 048 -24 017 degrees QTc Int : 446 ms Normal sinus rhythm Normal ECG When compared with ECG of 26-SEP-2019 10:55, No significant change was found Referred By: Sohan Diaz Electronically Signed By:Yoni Bentley
--- NOTE | 2024-03-14 16:03 | ED_ITS ---
HPI - General Adult General Chief complaint: ETOH/Substance Use Stated complaint: stressed, not eating, weak Time Seen by Provider: 03/14/24 16:20 Related Data Home Medications ?Medication ?Instructions ?Recorded ?Confirmed clonidine HCl 0.1 mg tablet 0.1 mg PO BID 12/27/23 03/14/24 bupropion HCl 300 mg 24 hr tablet, 300 mg PO DAILY 03/03/24 03/14/24 extended release escitalopram oxalate 20 mg tablet 20 mg PO DAILY 03/14/24 03/14/24 hydroxyzine pamoate 25 mg capsule 25 mg PO BID 03/14/24 03/14/24 Previous Rx's ?Medication ?Instructions ?Recorded blood pressure monitor (Blood #1 ea 04/19/23 Pressure Kit) acamprosate 333 mg tablet,delayed 666 mg (2 x 333 mg) PO TID 30 days 09/27/23 release #180 tabs finasteride 5 mg tablet 5 mg PO DAILY 30 days #30 tabs 03/03/24 tamsulosin 0.4 mg capsule 0.4 mg PO BEDTIME 30 days #30 caps 03/03/24 Allergies Allergy/AdvReac Type Severity Reaction Status Date / Time No Known Allergies Allergy Verified 03/14/24 16:05 [No Known Allergies*] [facility] Past Medical History Medical History Numbness of left hand Hiatal hernia Alcohol abuse GERD (gastroesophageal reflux disease) Tobacco abuse Obstructive sleep apnea Surgical History No pertinent past surgical history Family History Family History Father Alcohol abuse Mother Cancer Brother No problems noted. Brother Heart attack Sister No problems noted. Sister No problems noted. Sister No problems noted. Daughter No problems noted. Son No problems noted. Social History Social History Housing: Apartment Alcohol intake: current Alcohol intake frequency: 3 or more drinks per day Alcohol type: hard liquor Comment: stopped 08/2023(told 12/2023) Patient Tobacco Use Status: Current everyday Tobacco user Tobacco use type: Cigarette Cigarette Packs Per Day: 10 Years Smoked: pack Q 2 days Smoked in Last 30 Days: No e-Cigarette/Vaping Use: Never Used Second Hand Smoke Exposure: Yes Use of substances other than those prescribed or required for medical reasons: No Advance Directives: No Advance Directives Information Provided: No Do you have a plan to hurt others: No Plan service: No Current occupational status: unemployed Cognitive needs: No Hearing needs: No Vision needs: Yes Physical Exam ED Vital Signs: Vital Signs - 24 hr 03/14/24 16:01 03/14/24 16:35 Temperature 98.4 F Pulse Rate 89 Respiratory Rate 18 16 Blood Pressure 144/97 H Pulse Oximetry 97 Oxygen Delivery Method Room Air BMI result Body Mass Index 29.0 Course Course Course Narrative: RME, this is a rapid medical exam performed by Lele Diaz please refer to primary provider for complete H&P- 58-year-old male presents for evaluation of alcohol abuse and depression with suicidal ideation. He reports drinking for the last 4 days, his last drink was about an hour prior to arrival. Plan for labs including ethanol level. He will likely require a care team evaluation once sober Medical Decision Making Medical Decision Making MDM Narrative: -my interpretation of EKG: Normal sinus rhythm, heart rate 81, no ST segment depression or elevation, no T-wave inversion, QTC 446 -my interpretation of lab: Normal hematology, chemistry, no UTI new tox negative, EtOH positive 346 Differential Diagnosis Differential Diagnoses: The differential diagnosis associated with the presentation includes (Anxiety, depression, alcohol abuse) Admission/Observation Consideration of admission/observation: Escalation of care including admission/observation considered (Patient is under physician observation waiting to become sober and be assessed by Behavioral Health) Lab Data [facility] Lab Attestation statement: I reviewed the patient's lab results. 03/14/24 16:40 03/14/24 16:40 Labs: Lab Results 03/14/24 03/14/24 Range/Units 16:28 16:40 WBC 7.2 (4.8-10.8) X10*3/uL RBC 4.66 D (4.60-5.80) X10*6/uL Hgb 15.6 (14.0-18.0) g/dl Hct 44.3 (42.0-52.0) % MCV 95.1 (80.0-98.0) fL MCH 33.5 H (27.0-33.0) pg MCHC 35.2 (31.0-36.0) g/dl RDW 14.6 (11.0-16.0) % Plt Count 184 D (160-400) X10*3/uL MPV 8.9 L (9.4-12.4) fL Immature Gran % (Auto) 0.4 (0.0-0.4) % Neut % (Auto) 32.5 L (45-73) % Lymph % (Auto) 54.3 H (20-40) % [place] % (Auto) 8.2 (2-11) % Eos % (Auto) 3.8 (0-4) % Baso % (Auto) 0.8 (0-2) % Lymph # (Auto) 3.9 (1.2-4.9) X10*3/uL [place] # (Auto) 0.6 (0.1-1.2) X10*3/uL Eos # (Auto) 0.3 (0.0-0.4) X10*3/uL Baso # (Auto) 0.1 (0.0-0.2) X10*3/uL Abs Immat Gran (auto) 0.03 (0.00-0.03) X10*3/uL Absolute Neuts (auto) 2.3 (2.0-8.3) x10*3/uL Absolute Nucleated RBC 0.000 (0.0-0.012) X10*3/uL Nucleated RBC % (auto) 0.0 (0.0-0.2) /100WBC Sodium 147 H (135-145) mmol/L Potassium 3.8 (3.3-5.1) mmol/L Chloride 109 H (96-108) mmol/L Carbon Dioxide 23 (22-29) mmol/L Anion Gap 19 (12-20) BUN 12 (9-16) mg/dL Creatinine 0.86 (0.5-1.4) mg/dL Estim Creat Clear Calc 97.0 Estimated GFR > 60 Random Glucose 108 (60-115) mg/dL Calcium 9.7 (8.4-10.2) mg/dL Total Bilirubin 0.3 (0.0-1.0) mg/dL AST 39 H (5-37) U/L ALT 36 (0-40) U/L Alkaline Phosphatase 75 (39-117) U/L Total Protein 7.7 (6.5-8.0) g/dL Albumin 4.9 (3.5-5.0) g/dL Urine Color Yellow Urine Appearance Clear Urine pH 5.5 (5.0-9.0) Ur Specific [place] <= 1.005 (1.005-1.025) Urine Protein Negative (Neg-Trace) mg/dL Urine Glucose (UA) Negative (Negative) mg/dL Urine Ketones Negative (Negative) mg/dL Urine Blood Negative (Negative) Urine Nitrite Negative (Negative) Ur Leukocyte Esterase Negative (Negative) Salicylates < 5.0 L (15-30) mg/dL Urine Opiates Screen Not Detected (Not Detect) Ur Buprenorphine Scrn Not Detected (Not Detect) ng/mL Ur Oxycodone Screen Not Detected (Not Detect) ng/mL Urine Methadone Screen Not Detected (Not Detect) ng/mL Urine Fentanyl Screen Not Detected (Not Detect) Acetaminophen < 3 (<30) mcg/mL Ur Barbiturates Screen Not Detected (Not Detect) Ur Phencyclidine Scrn Not Detected (Not Detect) Ur Amphetamines Screen Not Detected (Not Detect) U Benzodiazepines Scrn Not Detected (Not Detect) Urine Cocaine Screen Not Detected (Not Detect) U Marijuana (THC) Screen Not Detected (Not Detect) Ethyl Alcohol 346 H* mg/dL Discharge Plan Discharge Clinical Impression: Alcohol intoxication, Depression Patient Disposition: Still a Patient Prescriptions: No Action acamprosate 333 mg tablet,delayed release (DR/EC) 666 mg PO TID 30 Days Qty: 180 0RF Rx Instructions: administer with mid-day and evening meals hydroxyzine pamoate 25 mg capsule 25 mg PO BID escitalopram oxalate 20 mg tablet 20 mg PO DAILY (DME) blood pressure monitor [Blood Pressure Kit] Kit See Rx Instructions .ROUTE .MEDSUPPLY Qty: 1 0RF Rx Instructions: As directed clonidine HCl 0.1 mg tablet 0.1 mg PO BID bupropion HCl 300 mg tablet extended release 24 hr 300 mg PO DAILY finasteride 5 mg tablet 5 mg PO DAILY 30 Days Qty: 30 1RF tamsulosin 0.4 mg capsule 0.4 mg PO BEDTIME 30 Days Qty: 30 1RF Print Language: Burmese
[2024-03-14 16:35] VITALS: RESP 16
[2024-03-14 16:38] LABS: Appearance Urine Clear; Color Urine Yellow; Glucose Urine UA Negative (Negative); Leukocyte Esterase Urine Negative (Negative); Nitrite Urine Negative (Negative); PH 5.5 (5.0-9.0); Specific Gravity - Urine <= 1.005 (1.005-1.025); Urine Blood Negative (Negative); Urine Ketones Negative (Negative); Urine Protein Negative (Neg-Trace)
[2024-03-14 16:44] LABS: MANUAL DIFF FLAG NO
[2024-03-14 16:47] LABS: Amphetamine Screen Urine Not Detected (Not Detect); Barbiturates, Urine Not Detected (Not Detect); Benzodiazepines Screen Urine Not Detected (Not Detect); Buprenorphine Scr Not Detected (Not Detect); Cannabinoid Screen Urine Not Detected (Not Detect); Cocaine Screen Urine Not Detected (Not Detect); Fentanyl, urine Not Detected (Not Detect); Methadone Screen, Urine Not Detected (Not Detect); Opiate Screen Urine Not Detected (Not Detect); Oxycodone Screen Urine Not Detected (Not Detect); Phencyclidine Screen Urine Not Detected (Not Detect)
--- NOTE | 2024-03-14 16:56 | PC.NURSE ---
Patient reports SI without a plan and increased etoh use due to life stressors, depression and anxiety. He ambulated around BH pod with steady gait, respirations even and unlabored, no apparent distress noted. Patient reports that he would like to go [place] detox Continue plan of care for medical clearance and then CARE team derek
[2024-03-14 16:59] LABS: Alanine Aminotransferase 36 U/L (0-40); Albumin Level 4.9 g/dL (3.5-5.0); Alkaline Phosphatase 75 U/L (39-117); Anion Gap 19 (12-20); Aspartate Amino Transferase 39 U/L (5-37); Bilirubin Total 0.3 mg/dL (0.0-1.0); Blood Urea Nitrogen 12 mg/dL (9-16); Calcium 9.7 mg/dL (8.4-10.2); Carbon Dioxide 23 mmol/L (22-29); Chloride 109 mmol/L (96-108); Estimated Glomerular Filt Rate > 60; Ethanol 346 mg/dL; Glucose Random 108 mg/dL (60-115); Potassium 3.8 mmol/L (3.3-5.1); Sodium 147 mmol/L (135-145); Total Protein 7.7 g/dL (6.5-8.0)
--- NOTE | 2024-03-14 17:01 | ED.ALCOHOL ---
HPI - Alcohol General Chief Complaint: ETOH/Substance Use Stated Complaint: stressed, not eating, weak Time Seen by Provider: 03/14/24 16:20 Source: patient and family Mode of arrival: ambulatory Limitations: other History of Present Illness ED Provider: Dr. Serenity Stauffer HPI narrative: Patient comes to the emergency room accompanied by family/friend, who dropped him off in the ED. seems that patient has been drinking a large amount of alcohol over last few days. Patient endorses vague SI, no HI. Patient requesting help with detox and depression. Patient states that today he did not fall and has no injuries. Related Data Home Medications ?Medication ?Instructions ?Recorded ?Confirmed clonidine HCl 0.1 mg tablet 0.1 mg PO BID 12/27/23 03/14/24 bupropion HCl 300 mg 24 hr tablet, 300 mg PO DAILY 03/03/24 03/14/24 extended release escitalopram oxalate 20 mg tablet 20 mg PO DAILY 03/14/24 03/14/24 hydroxyzine pamoate 25 mg capsule 25 mg PO BID 03/14/24 03/14/24 Previous Rx's ?Medication ?Instructions ?Recorded blood pressure monitor (Blood #1 ea 04/19/23 Pressure Kit) acamprosate 333 mg tablet,delayed 666 mg (2 x 333 mg) PO TID 30 days 09/27/23 release #180 tabs finasteride 5 mg tablet 5 mg PO DAILY 30 days #30 tabs 03/03/24 tamsulosin 0.4 mg capsule 0.4 mg PO BEDTIME 30 days #30 caps 03/03/24 Allergies Allergy/AdvReac Type Severity Reaction Status Date / Time No Known Allergies Allergy Verified 03/14/24 16:05 [No Known Allergies*] Review of Systems Review of Systems: Constitutional : No Weight loss, No Fever, No Chills, No Night Sweats, No Fatigue, No Malaise ENT/Mouth : No Hearing loss, No Ear Pain, No Nasal Congestion, No Sinus Pain, No Hoarseness, No sore throat, No Rhinorrhea, No Swallowing Difficulty Eyes: No Eye Pain, No Swelling, No Redness, No Foreign Body, No Discharge, No Vision Changes Cardiovascular : No Chest Pain, No SOB, No Dyspnea on Exertion, No Orthopnea, No Edema, No Palpitations Respiratory : No Cough, No Sputum, No Wheezing, No Smoke Exposure, No Dyspnea Gastrointestinal : No Nausea, No Vomiting, No Diarrhea, No Constipation, No abdominal Pain, No Hematochezia, No Melena Genitourinary : no irregular bleeding, No Dysuria, No Urinary Frequency, No Hematuria, No Urinary Incontinence, No Urgency, No Flank Pain, No Urinary Flow Changes, No Hesitancy Musculoskeletal : No joint pain, No Myalgias, No Joint Swelling Skin : No Skin Lesions, No rash Neuro : No Weakness, No Numbness, No Paresthesias, No Loss of Consciousness, No Dizziness, No Headache Psych : No Anxiety/Panic, complaining of depression, vague SI, no HI, admits to alcohol abuse Heme/Lymph: No Bruising, No Bleeding,No Lymphadenopathy Endocrine : No Polyuria, No Polydipsia, No Temperature Intolerance PMF Past Medical History Medical History Numbness of left hand Hiatal hernia Alcohol abuse GERD (gastroesophageal reflux disease) Tobacco abuse Obstructive sleep apnea Surgical History No pertinent past surgical history Family History Family History Father Alcohol abuse Mother Cancer Brother No problems noted. Brother Heart attack Sister No problems noted. Sister No problems noted. Sister No problems noted. Daughter No problems noted. Son No problems noted. Social History Social History Housing: Apartment Alcohol intake: current Alcohol intake frequency: 3 or more drinks per day Alcohol type: hard liquor Comment: stopped 08/2023(told 12/2023) Patient Tobacco Use Status: Current everyday Tobacco user Tobacco use type: Cigarette Cigarette Packs Per Day: 10 Years Smoked: pack Q 2 days Smoked in Last 30 Days: No e-Cigarette/Vaping Use: Never Used Second Hand Smoke Exposure: Yes Use of substances other than those prescribed or required for medical reasons: No Advance Directives: No Advance Directives Information Provided: No Do you have a plan to hurt others: No Plan service: No Current occupational status: unemployed Cognitive needs: No Hearing needs: No Vision needs: Yes Physical Exam ED Vital Signs: Vital Signs - 24 hr 03/14/24 16:01 03/14/24 16:35 Temperature 98.4 F Pulse Rate 89 Respiratory Rate 18 16 Blood Pressure 144/97 H Pulse Oximetry 97 Oxygen Delivery Method Room Air BMI result Body Mass Index 29.0 Const Other: Appearance: Alert. Oriented X2. No acute distress. Intoxicated Eyes: Pupils equal, round and reactive to light. ENT: Pharynx normal. Neck: Normal inspection. Neck supple. No lymph nodes noted. No crepitus CVS: Normal heart rate and rhythm. Pulses normal. Normal S1 and S2 Respiratory: No respiratory distress. Breath sounds normal. No Wheezing. No rales Abdomen: Soft and nontender. No rigidity. No distention. Skin: Skin warm and dry. Normal skin color. Normal skin turgor. Extremities: No lower extremity edema. No Lacerations. No Rash Neuro: Oriented X 2. No motor deficit. No sensory deficit. Moving all extremities. No slurred speech. CN 2 through 12 grossly intact Psych: calm, cooperative, normal affect Course Course Course Narrative: -all of patient's labs pending -care team consult pending -physician observation started at 17:08 Medical Decision Making Differential Diagnosis Differential Diagnoses: The differential diagnosis associated with the presentation includes (Alcohol intoxication, anxiety, depression) Lab Data 03/14/24 16:40 03/14/24 16:40 Labs: Lab Results 03/14/24 03/14/24 Range/Units 16:28 16:40 Sodium 147 H (135-145) mmol/L Potassium 3.8 (3.3-5.1) mmol/L Chloride 109 H (96-108) mmol/L Carbon Dioxide 23 (22-29) mmol/L Anion Gap 19 (12-20) BUN 12 (9-16) mg/dL Creatinine 0.86 (0.5-1.4) mg/dL Estim Creat Clear Calc 97.0 Estimated GFR > 60 Random Glucose 108 (60-115) mg/dL Calcium 9.7 (8.4-10.2) mg/dL Total Bilirubin 0.3 (0.0-1.0) mg/dL AST 39 H (5-37) U/L ALT 36 (0-40) U/L Alkaline Phosphatase 75 (39-117) U/L Total Protein 7.7 (6.5-8.0) g/dL Albumin 4.9 (3.5-5.0) g/dL Urine Color Yellow Urine Appearance Clear Urine pH 5.5 (5.0-9.0) Ur Specific [place] <= 1.005 (1.005-1.025) Urine Protein Negative (Neg-Trace) mg/dL Urine Glucose (UA) Negative (Negative) mg/dL Urine Ketones Negative (Negative) mg/dL Urine Blood Negative (Negative) Urine Nitrite Negative (Negative) Ur Leukocyte Esterase Negative (Negative) Urine Opiates Screen Not Detected (Not Detect) Ur Buprenorphine Scrn Not Detected (Not Detect) ng/mL Ur Oxycodone Screen Not Detected (Not Detect) ng/mL Urine Methadone Screen Not Detected (Not Detect) ng/mL Urine Fentanyl Screen Not Detected (Not Detect) Ur Barbiturates Screen Not Detected (Not Detect) Ur Phencyclidine Scrn Not Detected (Not Detect) Ur Amphetamines Screen Not Detected (Not Detect) U Benzodiazepines Scrn Not Detected (Not Detect) Urine Cocaine Screen Not Detected (Not Detect) U Marijuana (THC) Screen Not Detected (Not Detect) Ethyl Alcohol 346 H* mg/dL Critical Care Time Critical Care Time Critical Care Time: Yes Total Critical Care Time: 30 Attestation: I have personally provided critical care time. Time includes review of lab data, radiology results, discussion with consultants, and monitoring for potential decompensation. Intervention performed as documented. Discharge Plan Discharge Clinical Impression: Alcohol intoxication, Depression Patient Disposition: Still a Patient Prescriptions: No Action acamprosate 333 mg tablet,delayed release (DR/EC) 666 mg PO TID 30 Days Qty: 180 0RF Rx Instructions: administer with mid-day and evening meals hydroxyzine pamoate 25 mg capsule 25 mg PO BID escitalopram oxalate 20 mg tablet 20 mg PO DAILY (DME) blood pressure monitor [Blood Pressure Kit] Kit See Rx Instructions .ROUTE .MEDSUPPLY Qty: 1 0RF Rx Instructions: As directed clonidine HCl 0.1 mg tablet 0.1 mg PO BID bupropion HCl 300 mg tablet extended release 24 hr 300 mg PO DAILY finasteride 5 mg tablet 5 mg PO DAILY 30 Days Qty: 30 1RF tamsulosin 0.4 mg capsule 0.4 mg PO BEDTIME 30 Days Qty: 30 1RF Print Language: Hong Konger
[2024-03-14 17:02] LABS: Acetaminophen LAB < 3 mcg/mL (<30); Salicylate < 5.0 mg/dL (15-30)
[2024-03-14 17:04] LABS: Basophils Absolute Auto 0.1 X10*3/uL (0.0-0.2); Basophils Percent Auto 0.8 % (0-2); Eosinophils Absolute Auto 0.3 X10*3/uL (0.0-0.4); Eosinophils Percent Auto 3.8 % (0-4); Hematocrit 44.3 % (42.0-52.0); Hemoglobin 15.6 g/dl (14.0-18.0); Imm Gran Abs Auto 0.03 X10*3/uL (0.00-0.03); Imm Gran Pct Auto 0.4 % (0.0-0.4); Lymphocytes Absolute Auto 3.9 X10*3/uL (1.2-4.9); Lymphocytes Percent Auto 54.3 % (20-40); Mean Corpuscular HGB Conc 35.2 g/dl (31.0-36.0); Mean Corpuscular Hemoglobin 33.5 pg (27.0-33.0); Mean Corpuscular Volume 95.1 fL (80.0-98.0); Mean Platelet Volume 8.9 fL (9.4-12.4); Monocytes Absolute Auto 0.6 X10*3/uL (0.1-1.2); Monocytes Percent Auto 8.2 % (2-11); Neutrophils Absolute Auto 2.3 x10*3/uL (2.0-8.3); Neutrophils Percent Auto 32.5 % (45-73); Platelet Count 184 X10*3/uL (160-400); Red Blood Count 4.66 X10*6/uL (4.60-5.80); Red Cell Distribution Width 14.6 % (11.0-16.0); White Blood Count 7.2 X10*3/uL (4.8-10.8)
--- NOTE | 2024-03-14 17:11 | PC.NURSE ---
Jona (family friend) stopped by and spoke with patient, patient gave this RN permission to talk with him about his care. [phone]
--- NOTE | 2024-03-14 18:27 | PC.NURSE ---
Patient appears to be sleeping, respirations even and unlabored, no apparent distress
[2024-03-14 20:15] VITALS: BP 125/91; PULSE 93; RESP 20; TEMP 36.6; O2SAT 96
[2024-03-14 21:40] VITALS: BP 133/89; PULSE 81; RESP 17; TEMP 36.6; O2SAT 95
[2024-03-14] MEDS: LORazepam 1 MG TABLET 2 MG PO (21:52)
[2024-03-15] MEDS: LORazepam 1 MG TABLET 2 MG PO (03:33)
[2024-03-15 06:07] VITALS: RESP 16
--- NOTE | 2024-03-15 06:14 | PC.NURSE ---
Patient is currently in bed appears sleeping, CIWA at 2135 was 16, and 0323 was 10, medicated with Ativan 2 mg PO each time with + effect, no behavior and safety concerns, patient reported he wants to go home, he doesn't have any memory recollection of what he reported to provider about his suicidal ideation, patient was told that he needs to see crises in the morning, med rec completed/pending provider's approval, will continue to monitor
--- NOTE | 2024-03-15 07:33 | PC.NURSE ---
Assumed care of patient at 0645, patient appears to be in no apparent distress this am, sitting in bed watching TV and eating breakfast. Offers no complaints to this RN at this time. Continue plan of care for CARE team evaluation this am
[2024-03-15] MEDS: Acamprosate Calcium 333 MG TABLET.DR 666 MG PO (08:42)
[2024-03-15] MEDS: buPROPion HCl XL 300 MG TAB.ER.24H PO (08:42)
[2024-03-15] MEDS: hydrOXYzine HCL 25 MG TABLET PO (08:42)
[2024-03-15] MEDS: cloNIDine HCL 0.1 MG TABLET PO (08:42)
[2024-03-15] MEDS: Escitalopram Oxalate 20 MG TABLET PO (08:42)
[2024-03-15] MEDS: Finasteride 5 MG TABLET PO (08:42)
--- NOTE | 2024-03-15 11:08 | MHC.RECOVRN ---
Met with pt in [facility] after cleared by CARE Team. Pt sitting in bed, awake, alert, engages in conversation, appears comfortable. Pt reports alcohol use, 9-11 nips of vodka x 4 days, prior to that was drinking 4-5 nips x 2 months. Pt reports he has been to [facility] once, approx 6 months ago, [facility]. Pt requesting to return to [facility]. T/w spoke with intake at [facility], there is bed availability and admission time will be 4:30PM. Plan for pt to complete phone intake and dc to [facility] at 2:30PM. Discussed with RN.
--- NOTE | 2024-03-15 11:25 | PC.NURSE ---
patient on phone completing intake assessment to [place]
[2024-03-15 14:34] VITALS: BP 137/71; PULSE 75; RESP 17; TEMP 36.9; O2SAT 97
== END 2024-03-15 14:35 ==
PROVIDERS: Physician Assistant; Emergency Provider Emergency Medicine; PCP Internal Medicine
DX: F32.A Depression, unspecified (principal); F10.129 Alcohol abuse with intoxication, unspecified; Y90.8 Blood alcohol level of 240 mg/100 ml or more; Z79.899 Other long term (current) drug therapy
CPT/HCPCS: 36415; 80053; 80143; 80179; 80307; 81003; 85025; 93005; 99285; S9485

== ENCOUNTER → 2024-03-14 16:03 | Outpatient (BNV) | payer OTHER, SELFPAY | PROVIDERS: Emergency Provider Emergency Medicine; PCP Internal Medicine; Visit Provider Internal Medicine Cardiovascular Disease | DX: R53.1 Weakness (principal) | CPT/HCPCS: 93010 ==

== ENCOUNTER 2024-05-10 08:00 | Outpatient (REF) | payer OTHER, SELFPAY ==
[2024-05-10 16:45] LABS: Cholesterol 207 mg/dL (<200); HDL Cholesterol 63 mg/dL (>40); LDL Cholesterol Calculated 98 mg/dL (<100); Triglycerides 231 mg/dL (<150)
[2024-05-10 16:59] LABS: Prostate Specific Antigen 1.89 ng/mL (<0.05-4.0)
[2024-05-10 17:02] LABS: Free T4 (Free Thyroxine) 0.78 ng/dL (0.71-1.85); Thyroid Stimulating Hormone 2.07 uIU/mL (0.32-4.0)
== END 2024-05-10 08:01 | disposition home or self-care (01) ==
LOC: HO.LAB 08:00
PROVIDERS: PCP Internal Medicine; Visit Provider Internal Medicine
DX: N40.0 Benign prostatic hyperplasia without lower urinary tract symptoms (principal); E78.00 Pure hypercholesterolemia, unspecified; R39.12 Poor urinary stream; R79.89 Other specified abnormal findings of blood chemistry
CPT/HCPCS: 36415; 80061; 84153; 84439; 84443

== ENCOUNTER 2024-05-11 09:30 | Outpatient (AMB) | payer OTHER, SELFPAY ==
--- NOTE | 2024-05-11 09:42 | MHC.PC.OV ---
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 Last seen in December 2023. Colonoscopy 2016. Review of the notes was in the emergency room for EtOH abuse with suicidal ideation. Patient has also seen the urology for the prostate enlargement. Started on Flomax and finasteride. PAtiet feels depressed. For the Pituitary cyst - sent to ENDO and was advised repeat resting MRI this year [facility] Medical History (Updated 05/11/24 @ 10:27 by Tavia Arellano MD) Hypoxemia associated with sleep Dislocation of finger PIP joint Blood pressure elevated without history of HTN Hospital discharge follow-up Obesity (BMI 30.0-34.9) Weak urinary stream Bladder trabeculation Enlarged prostate Numbness of left hand Hiatal hernia Alcohol abuse GERD (gastroesophageal reflux disease) Tobacco abuse Obstructive sleep apnea Surgical History No pertinent past surgical history Family History Father Alcohol abuse Mother Cancer Brother No problems noted. Brother Heart attack Sister No problems noted. Sister No problems noted. Sister No problems noted. Daughter No problems noted. Son No problems noted. Social History Housing: Apartment Alcohol intake: current Alcohol intake frequency: 3 or more drinks per day Alcohol type: hard liquor Comment: stopped 08/2023(told 12/2023) Patient Tobacco Use Status: Current everyday Tobacco user Tobacco use type: Cigarette Cigarette Packs Per Day: 10 Years Smoked: pack Q 2 days e-Cigarette/Vaping Use: Never Used Second Hand Smoke Exposure: Yes service: No Current occupational status: unemployed Cognitive needs: No Hearing needs: No Vision needs: Yes Questionnaire Thrive Questionnaire Date Thrive assessed: 12/27/23 AUDIT C Alcohol Use Questionnaire (AUDIT-C) 1. How often do you have a drink containing alcohol?: 4 or more times a week 2. How many drinks containing alcohol do you have on a typical day when you are drinking?: 10 or more 3. How often do you have six or more drinks on one occasion?: Daily or almost daily Total Score: 12 YVONNE-7 AMB Questionnaire YVONNE-7 Date YVONNE - 7 assessed: 12/27/23 Source: Developed by Drs. Lobito Wise, Annamarie Springer, Oumar Soler and colleagues, with an educational sarwat from [employer]. Physical exam (Primary Care) Vital Signs: Last Vital Signs Pulse 84 05/11/24 09:43 BP 114/62 05/11/24 09:43 Pulse Ox 98 05/11/24 09:43 Oxygen Delivery Method Room Air 05/11/24 09:43 BMI result Body Mass Index 29.0 Tobacco/Smoking Status: Tobacco use Status Tobacco use date assessed 12/27/23 05/11/24 09:43 Patient Tobacco Use Status Current everyday Tobacco 05/11/24 09:43 Tobacco use type Cigarette 05/11/24 09:43 e-Cigarette/Vaping Use Never Used 05/11/24 09:43 Thrive Assessment: Date of Thrive Assessment Date Thrive assessed 12/27/23 05/11/24 09:43 Const General: alert; No acute distress Eyes Conjunctivae: conjunctivae normal Resp Auscultation: clear to auscultation bilaterally Cardio Rate: regular rate Rhythm: regular rhythm GI Inspection: Yes normal to inspection Extrem General: Yes normal to inspection and No edema Assessment and Plan Assessment & Plan (1) BPH (benign prostatic hyperplasia): Code(s): N40.0 - Benign prostatic hyperplasia without lower urinary tract symptoms Plan: Patient follows up with urology and has been placed on tamsulosin and finasteride (2) Overweight (BMI 25.0-29.9): Code(s): E66.3 - Overweight Plan: Diet and exercise (3) Recurrent major depression: Comment: Has been referred [facility] Q month Code(s): F33.9 - Major depressive disorder, recurrent, unspecified Plan: Presently on Lexapro Buproprion on and clonidine (4) Alcohol abuse: Code(s): F10.10 - Alcohol abuse, uncomplicated Plan: Patient has been advised to abstain from alcohol. (5) Tobacco abuse: Code(s): Z72.0 - Tobacco use Plan: Patient is strongly advised to stop smoking! (6) GERD (gastroesophageal reflux disease): Code(s): K21.9 - Gastro-esophageal reflux disease without esophagitis Qualifiers: Esophagitis presence: without esophagitis Qualified Code(s): K21.9 - Gastro-esophageal reflux disease without esophagitis Plan: Avoid the foods that causes that usually spicy foods, tomato products, juices, coffee, soda and foods that your sensitive to. After eating do not lie down, allow 3-4 hours before in lie down. And keep the head of bed above 30 degrees to avoid the acid from going up. Patient advised to stop smoking and alcohol consumption. (7) Obstructive sleep apnea: Comment: Moderately severe degree of sleep apnea. The AHI was 28/hr and oxygen rhonda was 75 %. CPAP Code(s): G47.33 - Obstructive sleep apnea (adult) (pediatric) Plan: Discussed about CPAP treatment. USes the CPAP Q night and benefits from this (8) Hypercholesterolemia: Code(s): E78.00 - Pure hypercholesterolemia, unspecified Plan: Avoid fried foods, chicken skin, eggs, butter margarine, pastries and meat. Be it pork or beef they have a lot of cholesterol LDL goal of less than 130 and triglyceride of less than 150 (9) Pituitary incidentaloma: Comment: Dr. Andrade Code(s): D49.7 - Neoplasm of unspecified behavior of endocrine glands and other parts of nervous system Plan: seen ENDO and planned ff up MRI Medications: Changed From omeprazole 20 mg PO DAILY 90 caps 3RF K21.9 - Gastro-esophageal reflux disease without esophagitis To omeprazole 40 mg PO DAILY 180 caps 1RF K21.9 - Gastro-esophageal reflux disease without esophagitis Refilled albuterol sulfate 90 mcg/actuation (Ventolin HFA) 2 puffs inhalation Q6H PRN 8.5 grams 0RF shortness of breath or wheezing Z72.0 - Tobacco use Coding Level of Care Code Est Pt Level 4 (37463) Diagnoses BPH (benign prostatic hyperplasia) N40.0 Overweight (BMI 25.0-29.9) E66.3 Recurrent major depression F33.9 Alcohol abuse F10.10 Tobacco abuse Z72.0 Gastroesophageal reflux disease without esophagitis K21.9 Esophagitis presence: without esophagitis Obstructive sleep apnea G47.33 Hypercholesterolemia E78.00 Pituitary incidentaloma D49.7
[2024-05-11 09:43] VITALS: BP 114/62; PULSE 84; O2SAT 98; BMI 29.0
== END 2024-05-11 10:33 | disposition home or self-care (01) ==
PROVIDERS: PCP Internal Medicine; Visit Provider Internal Medicine
DX: N40.0 Benign prostatic hyperplasia without lower urinary tract symptoms (principal); F33.9 Major depressive disorder, recurrent, unspecified; F10.10 Alcohol abuse, uncomplicated; F17.210 Nicotine dependence, cigarettes, uncomplicated; K21.9 Gastro-esophageal reflux disease without esophagitis; G47.33 Obstructive sleep apnea (adult) (pediatric); E78.00 Pure hypercholesterolemia, unspecified; D49.7 Neoplasm of unspecified behavior of endocrine glands and other parts of nervous system
CPT/HCPCS: 99214

== ENCOUNTER 2024-05-31 13:58 | Outpatient (AMB) | payer OTHER, SELFPAY ==
--- NOTE | 2024-05-31 14:02 | MHC.OFFVIS ---
Vital Signs 05/31/24 14:04 Height 5 ft 7 in Weight 185 lb BMI 29.0 BP 116/66 Blood Pressure Location Rt brachial Position Sitting Respiration 16 Pulse 74 Pulse Source Pulse Oximeter Pulse Oximetry (%) 98 Oxygen Delivery Method Room Air Intake Visit Reasons: Follow up Intake Note: Pt presents to the office for follow up after 15 months for RAJESH. 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 Pt had a repeat home sleep study. The home sleep study result was significant for moderately severe. The AHI was 28/hr and oxygen rhonda was 75%. The average O2 sat was 91% and below 88% for 86 min. Pt started APAP [id number]. He reports difficulty using CPAP due to change in his pressure setting . he used to be on CPAP 14 with good response.He still foley shis old CPAP from [place] and is using it. [facility] Medical History Hypoxemia associated with sleep Dislocation of finger PIP joint Blood pressure elevated without history of HTN Hospital discharge follow-up Obesity (BMI 30.0-34.9) Weak urinary stream Bladder trabeculation Enlarged prostate Numbness of left hand Hiatal hernia Alcohol abuse GERD (gastroesophageal reflux disease) Tobacco abuse Obstructive sleep apnea Surgical History No pertinent past surgical history Family History Father Alcohol abuse Mother Cancer Brother No problems noted. Brother Heart attack Sister No problems noted. Sister No problems noted. Sister No problems noted. Daughter No problems noted. Son No problems noted. Social History Housing: Apartment Alcohol intake: current Alcohol intake frequency: 3 or more drinks per day Alcohol type: hard liquor Comment: stopped 08/2023(told 12/2023) Patient Tobacco Use Status: Current everyday Tobacco user Tobacco use type: Cigarette Cigarette Packs Per Day: 10 Years Smoked: pack Q 2 days e-Cigarette/Vaping Use: Never Used Second Hand Smoke Exposure: Yes service: No Current occupational status: unemployed Cognitive needs: No Hearing needs: No Vision needs: Yes Review of Systems ENT Reports Normal hearing present Neuro Reports Normal hearing present Physical Exam Vital Signs: Last Vital Signs Pulse 74 05/31/24 14:04 Resp 16 05/31/24 14:04 BP 116/66 05/31/24 14:04 Pulse Ox 98 05/31/24 14:04 Oxygen Delivery Method Room Air 05/31/24 14:04 BMI result Body Mass Index 29.0 Const General: cooperative Nutritional Appearance: average body habitus Orientation/consciousness: patient oriented x3 Resp Effort & Inspection: normal respiratory effort and able to speak in complete sentences Neuro General: patient oriented x3, gait normal and moves all extremities Cranial nerves: Yes Bilaterally intact EOM present, Yes Normal facial strength present, Yes Midline tongue present, Yes Symmetric palate elevation present, Yes Normal hearing present, Yes Ability to bilaterally rotate head present and Yes Ability to bilaterally elevate shoulders present Cognition (Neuro): normal cognition Gait exam (Neuro): Normal gait present Motor exam (neuro): 5/5 motor strength present throughout, Pronator motor function not present and Tremors during motor activity present (mild left hand tremor.) Assessment & Plan Assessment & Plan (1) Hypoxemia associated with sleep: Code(s): G47.36 - Sleep related hypoventilation in conditions classified elsewhere Category: Medical (2) Obstructive sleep apnea: Comment: Moderately severe degree of sleep apnea. The AHI was 28/hr and oxygen rhonda was 75 %. CPAP Code(s): G47.33 - Obstructive sleep apnea (adult) (pediatric) Category: Medical Plan Change CPAP settings to AutoPAP 14-20 Will schedule for PAP titration study. Stressed compliance, use CPAP nightly and more than 4 hours. Continue to practice good sleep hygiene. Orders: Orders RT PSG in-lab sleep titration Today G47.33 - Obstructive sleep apnea (adult) (pediatric) Coding Level of Care Code Est Pt Level 4 (79645) Diagnoses Hypoxemia associated with sleep G47.36 Obstructive sleep apnea G47.33
[2024-05-31 14:04] VITALS: BP 116/66; PULSE 74; RESP 16; O2SAT 98; BMI 29.0
== END 2024-05-31 14:35 | disposition home or self-care (01) ==
PROVIDERS: PCP Internal Medicine; Visit Provider Psychiatry & Neurology Neurology
DX: G47.33 Obstructive sleep apnea (adult) (pediatric) (principal); G47.36 Sleep related hypoventilation in conditions classified elsewhere
CPT/HCPCS: 99214

== ENCOUNTER → 2024-05-31 13:58 | Outpatient (BNVA) | payer OTHER, SELFPAY | PROVIDERS: PCP Internal Medicine; Visit Provider Psychiatry & Neurology Neurology | DX: G47.33 Obstructive sleep apnea (adult) (pediatric) (principal); G47.36 Sleep related hypoventilation in conditions classified elsewhere | CPT/HCPCS: 99212 ==

== ENCOUNTER 2024-06-21 13:28 | Outpatient (AMB) | payer OTHER, SELFPAY ==
--- NOTE | 2024-06-21 13:34 | MHC.OFFVIS ---
"Intake Visit Reasons: 4m/PSA(set) Intake Note: Patient presents today for follow up on: BPH Urology Medications: tamsulosin Allergies to Antibiotic: none Blood Thinner: none PVR: 39ml's Survey Technologist Required: No Accompanied by: Self / Same As Patient Allergies No Known Allergies [No Known Allergies*] Allergy (Verified 06/21/24 13:58) Medication List - Last Reconciled 06/21/24 by LISA Claros acamprosate 666 mg (2 x 333 mg) PO TID 30 days albuterol sulfate 90 mcg/actuation (Ventolin HFA) 2 puffs inhalation Q6H PRN bupropion HCl XL 300 mg PO DAILY clonidine HCl 0.1 mg PO BID escitalopram oxalate 20 mg PO DAILY finasteride 5 mg PO DAILY 30 days hydroxyzine pamoate 25 mg PO BID omeprazole 40 mg PO DAILY HPI Comments Details: Surendra is a 58-year-old male patient of Dr. Arellano. He has a past medical history of hiatal hernia, alcohol abuse, GERD, tobacco abuse, and obstructive sleep apnea. He presents to the office today for follow-up of his bladder wall thickening and enlarged prostate. In discussion with the patient today he reports despite compliance with 0.4 mg of Flomax daily he continues to have intermittent episodes of urinary hesitancy. He reports at times he feels feeling of incomplete bladder emptying and weak urinary stream. Recent PSA results reviewed with the patient today as noted and trended below. He reports continuing to follow-up with neurology and has since received his CPAP machine. Previous workup has included a bladder ultrasound noting mild diffuse thickening and irregularity of the bladder wall with possible trabeculations. Mild low level internal echoes characteristic of debris within the bladder. Enlarged prostate volume of 42 mL. Per radiology report correlation with clinical exam urology consultation is recommended to determine further management including possible direct visualization with cystoscopy. In office urinalysis results reviewed with the patient today. PVR 39 mL. He discusses noting weak urinary stream when he is not consuming alcohol. However when he is drinking alcohol he feels he has a good urinary stream and no bothersome urinary issues. He otherwise denies urinary urgency, urinary frequency, incontinence, nocturia, hematuria, dysuria, foul smelling urine, flank pain, fever, and or chills. PSA are as follows: PSAs: 11/22 2.4, 04/26 2.4, 10/29 1.8, 02/27 1.9, 05/30 1.9 [facility] Medical History Hypoxemia associated with sleep Dislocation of finger PIP joint Blood pressure elevated without history of HTN Hospital discharge follow-up Obesity (BMI 30.0-34.9) Weak urinary stream Bladder trabeculation Enlarged prostate Numbness of left hand Hiatal hernia Alcohol abuse GERD (gastroesophageal reflux disease) Tobacco abuse Obstructive sleep apnea Surgical History No pertinent past surgical history Family History Father Alcohol abuse Mother Cancer Brother No problems noted. Brother Heart attack Sister No problems noted. Sister No problems noted. Sister No problems noted. Daughter No problems noted. Son No problems noted. Social History Housing: Apartment Alcohol intake: current Alcohol intake frequency: 3 or more drinks per day Alcohol type: hard liquor Comment: stopped 08/2023(told 12/2023) Patient Tobacco Use Status: Current everyday Tobacco user Tobacco use type: Cigarette Cigarette Packs Per Day: 10 Years Smoked: pack Q 2 days e-Cigarette/Vaping Use: Never Used Second Hand Smoke Exposure: Yes service: No Current occupational status: unemployed Cognitive needs: No Hearing needs: No Vision needs: Yes Review of Systems Eyes Reports no additional complaints ENT Reports no additional complaints Card Reports as per HPI Resp Reports as per HPI GI Reports no additional complaints Reports as per HPI Musc Reports no additional complaints Neuro Reports no additional complaints Psych Reports as per HPI Endo Reports no additional complaints Keith/Lymph Reports no additional complaints Aller/Immun Reports no additional complaints Physical Exam Const General: cooperative, healthy appearing, comfortable, no acute distress, well developed, alert and awake Nutritional Appearance: overweight Orientation/consciousness: patient oriented x3 Limitations: no limitations HEENT Head: Yes normal to inspection, Yes normocephalic and Yes atraumatic Ears: hearing grossly normal bilaterally Eyes General: appearance normal, both eyes and all related structures Neck Neck: Yes normal visual inspection and Yes trachea midline Chest Chest palpation & inspection: normal inspection of the chest Resp Effort & Inspection: normal respiratory effort and able to speak in complete sentences Cardio Rate: regular rate GI Inspection: Yes normal to inspection General: Yes no CVA tenderness Back/Spine/Pelvis Back: no CVA tenderness Skin General skin exam: no rashes or lesions noted Neuro General: patient oriented x3 Extrem General: Yes normal to inspection Psych Appearance: grossly normal and well kempt Mental Status: mental status grossly normal Speech and movement: Normal speech and movement present and Clear speech present Affect: normal affect Attitude: cooperative Thought process: Normal thought process present Thought content: Normal thought content present Insight: Fair insight present (Psych) Judgement: Fair judgement present (Psych) Office Procedures Post Void Residual Post Residual Void Post Void Residual (PVR): 39 [id number] Void Residual by ultrasound Results AMB Urinalysis, Automated UA Leukoctes 0 Niurka/uL Last Edit by [employer] | Anywhere on 06/21/24 14:01 UA Nitrite Last Edit by [employer] | Anywhere on 06/21/24 14:01 UA Urobilinogen 0.2 mg/dL Last Edit by [employer] | Anywhere on 06/21/24 14:01 UA Protein 15 mg/dL Last Edit by [employer] | Anywhere on 06/21/24 14:01 UA pH 6.5 Last Edit by [employer] | Anywhere on 06/21/24 14:01 UA Blood 0 Eladio/uL Last Edit by [employer] | Anywhere on 06/21/24 14:01 UA Specific [place] 1.015 Last Edit by [employer] | Anywhere on 06/21/24 14:01 UA Ketone Last Edit by [employer] | Anywhere on 06/21/24 14:01 UA Bilirubin 0 mg/dL Last Edit by [employer] | Anywhere on 06/21/24 14:01 UA Glucose 0 mg/dL Last Edit by [employer] | Anywhere on 06/21/24 14:01 Results Reviewed Results Reviewed: Laboratory Last Values Urine pH (Auto) 6.5 06/21/24 13:59 Specific [place] (Auto) 1.015 06/21/24 13:59 Urine Protein (Auto) 15 mg/dL 06/21/24 13:59 Glucose (UA)(Auto) 0 mg/dL 06/21/24 13:59 Urine Blood (Auto) 0 Eladio/uL 10/16/24 13:59 Urine Bilirubin (Auto) 0 mg/dL 06/21/24 13:59 Urine Urobilinogen (Auto) 0.2 mg/dL 06/21/24 13:59 Leukocyte Esterase (Auto) 0 Niurka/uL 06/21/24 13:59 Assessment & Plan Assessment & Plan (1) BPH (benign prostatic hyperplasia): Code(s): N40.0 - Benign prostatic hyperplasia without lower urinary tract symptoms Category: Medical (2) Bladder wall thickening: Code(s): N32.89 - Other specified disorders of bladder Category: Medical Plan In office urinalysis results with the patient today; as noted above. PVR 39 mL. Start terazosin as discussed and prescribed. Refill provided on finasteride 5 mg daily. Stop Flomax Recent PSA results reviewed with the patient today; as noted above. Discussed possible near future in office cystoscopy for further assessment evaluation. Follow-up in 1-3 months with PVR; or sooner with any issues, concerns, and or questions. Orders: Orders AMB Urinalysis Automated Today Z13.9 - Encounter for screening, unspecified AMB Post Void Residual by ultrasound Today N40.0 - Benign prostatic hyperplasia without lower urinary tract symptoms Medications: New terazosin 5 mg PO BEDTIME 30 caps 3RF 30 days N40.1 - Benign prostatic hyperplasia with lower urinary tract symptoms, R35.0 - Frequency of micturition Changed From finasteride 5 mg PO DAILY 30 days 30 tabs 1RF N40.1 - Benign prostatic hyperplasia with lower urinary tract symptoms, R33.9 - Retention of urine, unspecified To finasteride 5 mg PO DAILY 90 tabs 3RF 90 days N40.1 - Benign prostatic hyperplasia with lower urinary tract symptoms, R33.9 - Retention of urine, unspecified Patient Instructions: The patient had an opportunity to ask questions regarding the treatment plan. All questions were answered. Physical exam, labs, and imaging were discussed and reviewed in detail. As well as risks, benefits, and discussion of treatment choices. No major barriers to understanding were identified. The patient expressed understanding and agreement with the above treatment plan. The patient was made aware they should contact our office by phone for worsening of their current condition, the appearance of new symptoms, or with any questions or concerns. Compliance is encouraged with any medications and follow up testing that is ordered. It is a privilege to be allowed the opportunity to participate in? your urological care.? Again, if you have any questions or concerns If you have any questions or concerns please do not hesitate to contact me. The office is [phone]. This note is constructed using voice recognition software. While every effort has been made to ensure accuracy boat mechanic errors may have been included. Yours sincerely, DYLLAN Claros Coding Level of Care Code Est Pt Level 4 (50178) Diagnoses BPH (benign prostatic hyperplasia) N40.0 Bladder wall thickening N32.89 CPT Codes Post Residual Void - PVR CPT Code: 54680-Kmjk Void Residual by ultrasound ([id number])"
== END 2024-06-21 14:11 | disposition home or self-care (01) ==
PROVIDERS: PCP Internal Medicine; Visit Provider Nurse Practitioner Family
DX: N40.0 Benign prostatic hyperplasia without lower urinary tract symptoms (principal); N32.89 Other specified disorders of bladder; Z13.9 Encounter for screening, unspecified
CPT/HCPCS: 99214

== ENCOUNTER 2024-06-21 13:28 | Outpatient (REF) | payer OTHER, SELFPAY ==
[2024-06-21 16:55] LABS: Urine Cytology See Pathology rpt
== END 2024-06-21 13:29 | disposition home or self-care (01) ==
LOC: HO.LNP 13:28
PROVIDERS: PCP Internal Medicine; Visit Provider Nurse Practitioner Family
DX: R89.6 Abnormal cytological findings in specimens from other organs, systems and tissues (principal); N40.0 Benign prostatic hyperplasia without lower urinary tract symptoms; N32.89 Other specified disorders of bladder
CPT/HCPCS: 51798; 81003; 88112; 99212

== ENCOUNTER 2024-06-26 10:22 | Outpatient (REF) | payer OTHER, SELFPAY ==
--- NOTE | ~2024-06-26 | MR_ITS ---
EXAMINATION: MR BRAIN WITHOUT AND WITH CONTRAST CLINICAL INFORMATION: Pineal cyst. COMPARISON: Brain MRI from 07/15/2023. TECHNIQUE: MRI of the brain was obtained using routine sequences without and following the administration of 8 mL of Gadavist intravenous contrast. FINDINGS: No focal restricted diffusion is demonstrated to suggest acute or subacute cerebral ischemia. No evidence of acute or chronic hemorrhagic products on heme-sensitive imaging. Scattered periventricular and deep white matter T2 FLAIR hyperintensities consistent with mild underlying microangiopathy. The ventricles are normal in morphology and size. No abnormal mass effect. No midline shift. The previously noted potential pituitary nodule is not well evaluated on this exam. No demonstrated new macroscopic abnormalities of the pituitary gland. The suprasellar cistern remains widely patent. 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 No associated suspicious enhancement. Normal positioning of the cerebellar tonsils. Normal arterial and venous vascular flow voids are present. No abnormal contrast enhancement. Normal, homogeneous marrow signal. Mild mucosal thickening of the paranasal sinuses. Moderate right-sided mastoid effusion. No signal abnormalities within the left-sided mastoid. MR/MR head/brain wo/w con IMPRESSION: 1. No acute intracranial abnormalities. No abnormal intracranial enhancement. 2. Mild underlying microangiopathy. 3. 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 4. Moderate right-sided mastoid effusion. Electronically signed by: Laci Doe DO 08/16/2024 04:58 AM EST
[2024-06-26] MEDS: gadobutroL 10 ML VIAL IVPUSH (11:14)
== END 2024-06-26 10:23 | disposition home or self-care (01) ==
LOC: HO.MRI 10:22
PROVIDERS: PCP Internal Medicine; Visit Provider Neurological Surgery
DX: D35.4 Benign neoplasm of pineal gland (principal)
CPT/HCPCS: 70553; A9585

== ENCOUNTER 2024-06-30 09:57 | Outpatient (AMB) | payer OTHER, SELFPAY ==
--- NOTE | 2024-06-30 10:06 | MHC.OFFVIS ---
Vital Signs 06/30/24 10:07 Height 5 ft 7 in Weight 188 lb 2 oz BMI 29.5 BP 122/74 Blood Pressure Location Lt brachial Position Sitting Pulse 72 Pulse Source Pulse Oximeter Pulse Oximetry (%) 99 Oxygen Delivery Method Room Air Intake Visit Reasons: Follow up (ok per MD) Financial Services Assistant Required: No Accompanied by: Self / Same As Patient Allergies No Known Allergies [No Known Allergies*] Allergy (Verified 06/30/24 10:11) Do you need a note to return to daycare/school/sports/work: No HPI Comments Details: 58 y/o male patient with RAJESH on CPAP presents for follow up visit. Sep 2022 home sleep study: The home sleep study result was significant for moderately severe. The AHI was 28/hr and oxygen rhonda was 75%. The average O2 sat was 91% and below 88% for 86 min. After the last visit, his APAP pressure was changed to [id number], however he still feels the air does not feel right. He notes that his previous machine had different heat and humidity settings, but he does not know how to adjsut this on his machine. Review of his recent compliance report shows good reduction in residual AHI. [place] [id number] Email: [email or web address] Compliance Report Usage 05/31/2024 - 06/29/2024 Usage days 17/30 days (57%) >= 4 hours 15 days (50%) < 4 hours 2 days (7%) Usage hours 110 hours 14 minutes Average usage (total days) 3 hours 40 minutes Average usage (days used) 6 hours 29 minutes Median usage (days used) 6 hours 49 minutes Total used hours (value since last reset - 06/29/2024) 599 hours [employer] 11 AutoSet Serial number [id number] Mode AutoSet Min Pressure 14 cmH2O Max Pressure 20 cmH2O EPR Fulltime EPR level 2 Response Standard Therapy Pressure - cmH2O Median: 14.0 95th percentile: 15.2 Maximum: 16.2 Leaks - L/min Median: 7.6 95th percentile: 53.6 Maximum: 90.4 Events per hour AI: 0.2 HI: 0.1 AHI: 0.3 Apnea Index Central: 0.0 Obstructive: 0.0 Unknown: 0.1 RERA Index 0.0 PFSH Medical History Hypoxemia associated with sleep Dislocation of finger PIP joint Blood pressure elevated without history of HTN Hospital discharge follow-up Obesity (BMI 30.0-34.9) Weak urinary stream Bladder trabeculation Enlarged prostate Numbness of left hand Hiatal hernia Alcohol abuse GERD (gastroesophageal reflux disease) Tobacco abuse Obstructive sleep apnea Surgical History No pertinent past surgical history Family History Father Alcohol abuse Mother Cancer Brother No problems noted. Brother Heart attack Sister No problems noted. Sister No problems noted. Sister No problems noted. Daughter No problems noted. Son No problems noted. Social History Housing: Apartment Alcohol intake: current Alcohol intake frequency: 3 or more drinks per day Alcohol type: hard liquor Comment: stopped 08/2023(told 12/2023) Patient Tobacco Use Status: Current everyday Tobacco user Tobacco use type: Cigarette Cigarette Packs Per Day: 10 Years Smoked: pack Q 2 days e-Cigarette/Vaping Use: Never Used Second Hand Smoke Exposure: Yes service: No Current occupational status: unemployed Cognitive needs: No Hearing needs: No Vision needs: Yes Physical Exam Vital Signs: Last Vital Signs Pulse 72 06/30/24 10:07 BP 122/74 06/30/24 10:07 Pulse Ox 99 06/30/24 10:07 Oxygen Delivery Method Room Air 06/30/24 10:07 BMI result Body Mass Index 29.5 Const General: no acute distress Orientation/consciousness: patient oriented x3 Resp Effort & Inspection: able to speak in complete sentences Neuro General: patient oriented x3 Psych Mental Status: mental status grossly normal Speech and movement: Clear speech present Attitude: cooperative Assessment & Plan Assessment & Plan (1) Hypoxemia associated with sleep: Code(s): G47.36 - Sleep related hypoventilation in conditions classified elsewhere Category: Medical (2) Obstructive sleep apnea: Comment: Moderately severe degree of sleep apnea. The AHI was 28/hr and oxygen rhonda was 75 %. CPAP Code(s): G47.33 - Obstructive sleep apnea (adult) (pediatric) Category: Medical Plan Continue AutoPAP 14-20 cmH2O w/ EPR 2. Adjusted humidity and temp from auto to rukhsana- Humidity 4, temp 72. Pt is scheduled for PAP titration study in Nov. Stressed compliance, use CPAP nightly and more than 4 hours. Continue to practice good sleep hygiene. Will follow-up upon review of above and patient to follow-up in clinic in 6 months or sooner prn. Coding Level of Care Code Est Pt Level 3 (57395) Diagnoses Hypoxemia associated with sleep G47.36 Obstructive sleep apnea G47.33
[2024-06-30 10:07] VITALS: BP 122/74; PULSE 72; O2SAT 99; BMI 29.5
== END 2024-06-30 10:45 | disposition home or self-care (01) ==
PROVIDERS: PCP Internal Medicine; Visit Provider Nurse Practitioner Family
DX: G47.33 Obstructive sleep apnea (adult) (pediatric) (principal); G47.36 Sleep related hypoventilation in conditions classified elsewhere
CPT/HCPCS: 99213

== ENCOUNTER → 2024-06-30 09:57 | Outpatient (BNVA) | payer OTHER, SELFPAY | PROVIDERS: PCP Internal Medicine; Visit Provider Nurse Practitioner Family | DX: G47.33 Obstructive sleep apnea (adult) (pediatric) (principal); G47.36 Sleep related hypoventilation in conditions classified elsewhere; Z99.89 Dependence on other enabling machines and devices | CPT/HCPCS: 99212 ==

== ENCOUNTER 2024-08-23 09:58 | Outpatient (AMB) | payer OTHER, SELFPAY ==
[2024-08-23 10:04] VITALS: BP 110/74; PULSE 80; O2SAT 97; BMI 30.1
--- NOTE | 2024-08-23 10:04 | MHC.PC.OV ---
Vital Signs 08/23/24 10:04 Height 5 ft 7 in Weight 192 lb 2 oz BMI 30.1 BP 110/74 Blood Pressure Location Lt brachial Position Sitting Pulse 80 Pulse Source Pulse Oximeter Pulse Oximetry (%) 97 Oxygen Delivery Method Room Air Intake Visit Reasons: OSaBPH, depression Epic Beacon Analyst Required: No Accompanied by: Self / Same As Patient Allergies No Known Allergies [No Known Allergies*] Allergy (Verified 08/23/24 10:12) Tobacco use date assessed: 12/27/23 Dental Screening Dental Screen Date: 12/27/23 HPI OSaBPH, depression HPI Details The patient is a 58-year-old male presenting with chronic abdominal pain and concerns regarding gastrointestinal health. He reports ongoing back pain, which he associates with alcohol consumption. Bowel movements are regular with formed stools, though he experiences occasional traces of blood during heavy exertion. The patient has a known penial gland cyst that was stable upon recent MRI examination. Complaints include episodes of nocturnal polyuria, exacerbated by his medication intake. He is undergoing treatment for an enlarged prostate with improvements noted in urinary frequency, especially upon regulating fluid intake before bed. The patient mentions chronic smoking and significant alcohol intake, suspecting these habits as contributory factors to his abdominal discomfort. Blood work from March showed no anemia, although previous tests revealed elevated glucose and cholesterol levels. Vision problems at night, possible due to cataracts, affect him despite previous consultations with optometrists. [facility] Medical History Hypoxemia associated with sleep Dislocation of finger PIP joint Blood pressure elevated without history of HTN Hospital discharge follow-up Obesity (BMI 30.0-34.9) Weak urinary stream Bladder trabeculation Enlarged prostate Numbness of left hand Hiatal hernia Alcohol abuse GERD (gastroesophageal reflux disease) Tobacco abuse Obstructive sleep apnea Surgical History No pertinent past surgical history Family History Father Alcohol abuse Mother Cancer Brother No problems noted. Brother Heart attack Sister No problems noted. Sister No problems noted. Sister No problems noted. Daughter No problems noted. Son No problems noted. Social History Housing: Apartment Alcohol intake: current Alcohol intake frequency: 3 or more drinks per day Alcohol type: hard liquor Comment: stopped 08/2023(told 12/2023) Patient Tobacco Use Status: Current everyday Tobacco user Tobacco use type: Cigarette Cigarette Packs Per Day: 10 Years Smoked: pack Q 2 days Packs Per Year: 0 e-Cigarette/Vaping Use: Never Used Second Hand Smoke Exposure: Yes service: No Current occupational status: unemployed Cognitive needs: No Hearing needs: No Vision needs: Yes Questionnaire Thrive Questionnaire Date Thrive assessed: 12/27/23 YVONNE-7 AMB Questionnaire YVONNE-7 Date YVONNE - 7 assessed: 12/27/23 Source: Developed by Drs. Lobito Wise, Annamarie Springer, Oumar Soler and colleagues, with an educational sarwat from [employer]. Physical exam (Primary Care) Vital Signs: Last Vital Signs Pulse 80 08/23/24 10:04 BP 110/74 08/23/24 10:04 Pulse Ox 97 08/23/24 10:04 Oxygen Delivery Method Room Air 08/23/24 10:04 BMI result Body Mass Index 30.1 Tobacco/Smoking Status: Tobacco use Status Tobacco use date assessed 12/27/23 08/23/24 10:06 Patient Tobacco Use Status Current everyday Tobacco 08/23/24 10:06 Tobacco use type Cigarette 08/23/24 10:06 e-Cigarette/Vaping Use Never Used 08/23/24 10:06 Thrive Assessment: Date of Thrive Assessment Date Thrive assessed 12/27/23 08/23/24 10:06 Const General: alert; No acute distress Eyes Conjunctivae: conjunctivae normal Resp Auscultation: clear to auscultation bilaterally Cardio Rate: regular rate Rhythm: regular rhythm GI Inspection: Yes normal to inspection Extrem General: Yes normal to inspection and No edema Office Procedures Flu Questionnaire Does the patient have a severe egg allergy?: No Does the patient have severe life threatening allergies?: No Does the patient have a fever or illness today?: No Has the patient ever had Guillain-[place] Syndrome?: No Has the patient ever had any past reaction to a flu shot?: No Immunizations Fluarix Triv 8044-4342 (PF) 45 mcg (15 mcg x 3)/0.5 mL IM syringe Performing Provider: Tavia Arellano MD [place] [facility] [facility] by: STEPHANIE Cedillo on 08/23/24 10:11 Dose Route Admin Location Dispensed Lot Number Expiration Date [facility] [place] [employer] 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 0.5 mL IM Left Deltoid 0.5 mL [id number] 03/05/25 54870-385-38 Natural [employer] VIS Given Date VIS Provided VIS Publication Date 08/23/24 Single Vaccine 21 Eligibility Eligibility Date Funding Source Not [facility] Eligible 08/23/24 Private Coding Level of Care Code Est Pt Level 4 (20970) Complex EM visit Add On G2211 Diagnoses Hypercholesterolemia E78.00 Benign prostatic hyperplasia with weak urinary stream N40.1; R39.12 Lower urinary tract symptom presence: symptoms present Lower urinary tract symptom detail: weak urinary stream 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 Be it pork or beef they have a lot of cholesterol LDL goal of less than 130 and triglyceride of less than 150. Noted triglyceride to be elevated (2) BPH (benign prostatic hyperplasia): Code(s): N40.0 - Benign prostatic hyperplasia without lower urinary tract symptoms Category: Medical Qualifiers: Lower urinary tract symptom presence: symptoms present Lower urinary tract symptom detail: weak urinary stream Qualified Code(s): N40.1 - Benign prostatic hyperplasia with lower urinary tract symptoms; R39.12 - Poor urinary stream Plan: Patient follows up with urology and has been placed on terazosin and finasteride. (3) Pituitary incidentaloma: Comment: Dr. Andrade, 06/2024MRI Code(s): D49.7 - Neoplasm of unspecified behavior of endocrine glands and other parts of nervous system Category: Medical Plan: 06/25/2024 MRI showed stable size of the pineal gland (4) Recurrent major depression: Comment: Has been referred [facility] Q month Code(s): F33.9 - Major depressive disorder, recurrent, unspecified Category: Medical Qualifiers: Active/Remission status: currently active Major depression episode severity: moderate Qualified Code(s): F33.1 - Major depressive disorder, recurrent, moderate Plan: Continue with present medication and counseling (5) Alcohol abuse: Code(s): F10.10 - Alcohol abuse, uncomplicated Category: Social Hx (6) Tobacco abuse: Code(s): Z72.0 - Tobacco use Category: Medical (7) Obstructive sleep apnea: Comment: Moderately severe degree of sleep apnea. The AHI was 28/hr and oxygen rhonda was 75 %. CPAP Code(s): G47.33 - Obstructive sleep apnea (adult) (pediatric) Category: Medical (8) GERD (gastroesophageal reflux disease): Code(s): K21.9 - Gastro-esophageal reflux disease without esophagitis Category: Medical Qualifiers: Esophagitis presence: without esophagitis Qualified Code(s): K21.9 - Gastro-esophageal reflux disease without esophagitis (9) Vision blurring: Code(s): H53.8 - Other visual disturbances Category: Medical Plan - Continue to monitor the penial gland cyst; follow up MRI if necessary. - Advise reduced fluid intake two hours prior to sleep to manage nocturnal polyuria related to Benign Prostatic Hyperplasia. - Recommend ophthalmologic referral for cataract evaluation. - Refer to gastroenterology for colonoscopy and upper gastrointestinal endoscopy due to possible intestinal pathology. - Discuss smoking cessation resources and strategies to manage tobacco use disorder. - Advise limiting alcohol intake; consider referral to support services to address alcohol use disorder. - Continue current management for GERD, review effectiveness of Omeprazole. - Implement lifestyle modifications including dietary adjustments and increased physical activity for hyperlipidemia and elevated blood glucose. - Request repeat blood tests to monitor liver function and glucose levels. Orders: Orders Influenza [id number] Immunization Today Z23 - Encounter for immunization Complete Blood Count Auto Diff Today E78.00 - Pure hypercholesterolemia, unspecified Free T4 (Free Thyroxine) Today E78.00 - Pure hypercholesterolemia, unspecified Lipid Panel Today E78.00 - Pure hypercholesterolemia, unspecified Comprehensive Met. Panel Today E78.00 - Pure hypercholesterolemia, unspecified Thyroid Stimulating Hormone Today E78.00 - Pure hypercholesterolemia, unspecified Vitamin B12 and Folate Today E78.00 - Pure hypercholesterolemia, unspecified Prostate Specific Antigen Scr Today E78.00 - Pure hypercholesterolemia, unspecified Referrals Ophthalmology Referral H53.8 - Other visual disturbances Gastroenterology Referral K21.9 - Gastro-esophageal reflux disease without esophagitis
== END 2024-08-23 10:43 | disposition home or self-care (01) ==
PROVIDERS: PCP Internal Medicine; Visit Provider Internal Medicine
DX: E78.00 Pure hypercholesterolemia, unspecified (principal); F33.1 Major depressive disorder, recurrent, moderate; N40.1 Benign prostatic hyperplasia with lower urinary tract symptoms; R39.12 Poor urinary stream; D49.7 Neoplasm of unspecified behavior of endocrine glands and other parts of nervous system; F10.10 Alcohol abuse, uncomplicated; Z72.0 Tobacco use; G47.33 Obstructive sleep apnea (adult) (pediatric); K21.9 Gastro-esophageal reflux disease without esophagitis; H53.8 Other visual disturbances; Z23 Encounter for immunization

== ENCOUNTER → 2024-08-23 09:58 | Outpatient (BNVA) | payer OTHER, SELFPAY | PROVIDERS: PCP Internal Medicine; Visit Provider Internal Medicine | DX: Z23 Encounter for immunization (principal); E78.00 Pure hypercholesterolemia, unspecified; N40.1 Benign prostatic hyperplasia with lower urinary tract symptoms; R39.12 Poor urinary stream; D49.7 Neoplasm of unspecified behavior of endocrine glands and other parts of nervous system; F33.1 Major depressive disorder, recurrent, moderate; G47.33 Obstructive sleep apnea (adult) (pediatric); K21.9 Gastro-esophageal reflux disease without esophagitis; H53.8 Other visual disturbances; F10.10 Alcohol abuse, uncomplicated; Z72.0 Tobacco use | CPT/HCPCS: 90471; 90656; 99212 ==

== ENCOUNTER 2024-09-22 08:44 | Outpatient (REF) | payer OTHER, SELFPAY ==
[2024-09-22 09:05] LABS: MANUAL DIFF FLAG NO
[2024-09-22 09:44] LABS: Basophils Percent Auto 0.6 % (0-2); Eosinophils Absolute Auto 0.2 X10*3/uL (0.0-0.4); Eosinophils Percent Auto 3.2 % (0-4); Hematocrit 42.3 % (42.0-52.0); Hemoglobin 14.7 g/dl (14.0-18.0); Imm Gran Abs Auto 0.06 X10*3/uL (0.00-0.03); Imm Gran Pct Auto 0.9 % (0.0-0.4); Lymphocytes Absolute Auto 2.3 X10*3/uL (1.2-4.9); Mean Corpuscular HGB Conc 34.8 g/dl (31.0-36.0); Mean Corpuscular Hemoglobin 33.5 pg (27.0-33.0); Mean Corpuscular Volume 96.4 fL (80.0-98.0); Mean Platelet Volume 9.8 fL (9.4-12.4); Monocytes Absolute Auto 0.8 X10*3/uL (0.1-1.2); Monocytes Percent Auto 11.6 % (2-11); Neutrophils Absolute Auto 3.2 x10*3/uL (2.0-8.3); Neutrophils Percent Auto 48.7 % (45-73); Platelet Count 173 X10*3/uL (160-400); Red Blood Count 4.39 X10*6/uL (4.60-5.80); Red Cell Distribution Width 13.4 % (11.0-16.0); White Blood Count 6.6 X10*3/uL (4.8-10.8)
[2024-09-22 10:19] LABS: Alanine Aminotransferase 25 U/L (0-40); Albumin Level 4.4 g/dL (3.5-5.0); Alkaline Phosphatase 57 U/L (39-117); Anion Gap 11 (12-20); Aspartate Amino Transferase 39 U/L (5-37); Bilirubin Total 0.3 mg/dL (0.0-1.0); Blood Urea Nitrogen 16 mg/dL (9-16); Calcium 9.3 mg/dL (8.4-10.2); Carbon Dioxide 25 mmol/L (22-29); Chloride 111 mmol/L (96-108); Cholesterol 202 mg/dL (<200); Estimated Glomerular Filt Rate > 60; Glucose Random 92 mg/dL (60-115); HDL Cholesterol 51 mg/dL (>40); LDL Cholesterol Calculated 113 mg/dL (<100); Sodium 143 mmol/L (135-145); Total Protein 7.2 g/dL (6.5-8.0); Triglycerides 190 mg/dL (<150)
[2024-09-22 10:45] LABS: Free T4 (Free Thyroxine) 0.99 ng/dL (0.71-1.85); Thyroid Stimulating Hormone 1.83 uIU/mL (0.32-4.0)
[2024-09-22 10:53] LABS: Folate 17.8 ng/mL (> or = 4.0); Prostate Specific Antigen Scr 1.22 ng/mL (<0.05-4.0); Vitamin B12 448 pg/mL (200-900)
== END 2024-09-22 08:45 | disposition home or self-care (01) ==
LOC: HO.LAB 08:44
PROVIDERS: PCP Internal Medicine; Visit Provider Internal Medicine
DX: E78.00 Pure hypercholesterolemia, unspecified (principal)
CPT/HCPCS: 36415; 80053; 80061; 82607; 82746; 84153; 84439; 84443; 85025

== ENCOUNTER 2024-09-26 13:38 | Outpatient (AMB) | payer OTHER, SELFPAY ==
--- NOTE | 2024-09-26 13:41 | A.OFFVIS_ITS ---
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: No Accompanied by: Self / Same As Patient Allergies No Known Allergies [No Known Allergies*] Allergy (Verified 09/26/24 14:11) Medication List - Last Reconciled 09/26/24 by LISA Claros acamprosate 666 mg (2 x 333 mg) PO TID 30 days albuterol sulfate 90 mcg/actuation (Ventolin HFA) 2 puffs inhalation Q6H PRN bupropion HCl XL 300 mg PO DAILY clonidine HCl 0.1 mg PO BID escitalopram oxalate 20 mg PO DAILY finasteride 5 mg PO DAILY 90 days hydroxyzine pamoate 25 mg PO BID omeprazole 40 mg PO DAILY terazosin 10 mg (2 x 5 mg) PO BEDTIME 90 days HPI Comments Details: Surendra is a 59-year-old male patient of Dr. Arellano. He has a past medical history of hiatal hernia, alcohol abuse, GERD, tobacco abuse, and obstructive sleep apnea. He presents to the office today for follow-up of his bladder wall thickening and enlarged prostate. In discussion with the patient today he reports improvement in lower urinary tract symptoms with 10 mg of terazosin daily and is requesting refill. He reports compliance with terazosin and finasteride as prescribed. He has previously trialed Flomax in the past with no improvement in lower urinary tract symptoms. Recent PSA results reviewed with the patient today as noted and trended below. Previous workup has included a bladder ultrasound 01/27 noting mild diffuse thickening and irregularity of the bladder wall with possible trabeculations. Mild low level internal echoes characteristic of debris within the bladder. Enlarged prostate volume of 42 mL. Per radiology report correlation with clinical exam urology consultation is recommended to determine further management including possible direct visualization with cystoscopy. In office urinalysis results reviewed with the patient today. PVR 50 mL. He discusses noting improvement in weak urinary stream. He otherwise denies urinary urgency, urinary frequency, incontinence, nocturia, hematuria, dysuria, foul smelling urine, flank pain, fever, and or chills. PSA are as follows: PSAs: 11/22 2.4, 04/26 2.4, 10/29 1.8, 02/27 1.9, 05/30 1.9 PFS Medical History Hypoxemia associated with sleep Dislocation of finger PIP joint Blood pressure elevated without history of HTN Hospital discharge follow-up Obesity (BMI 30.0-34.9) Weak urinary stream Bladder trabeculation Enlarged prostate Numbness of left hand Hiatal hernia Alcohol abuse GERD (gastroesophageal reflux disease) Tobacco abuse Obstructive sleep apnea Surgical History No pertinent past surgical history Family History Father Alcohol abuse Mother Cancer Brother No problems noted. Brother Heart attack Sister No problems noted. Sister No problems noted. Sister No problems noted. Daughter No problems noted. Son No problems noted. Social History Housing: Apartment Alcohol intake: current Alcohol intake frequency: 3 or more drinks per day Alcohol type: hard liquor Comment: stopped 08/2023(told 12/2023) Patient Tobacco Use Status: Current everyday Tobacco user Tobacco use type: Cigarette Cigarette Packs Per Day: 10 Years Smoked: pack Q 2 days e-Cigarette/Vaping Use: Never Used Second Hand Smoke Exposure: Yes service: No Current occupational status: unemployed Cognitive needs: No Hearing needs: No Vision needs: Yes Review of Systems Eyes Reports no additional complaints ENT Reports no additional complaints Card Reports as per HPI Resp Reports as per HPI GI Reports no additional complaints Reports as per HPI Musc Reports no additional complaints Neuro Reports no additional complaints Psych Reports as per HPI Endo Reports no additional complaints Keith/Lymph Reports no additional complaints Aller/Immun Reports no additional complaints Physical Exam Const General: cooperative, healthy appearing, comfortable, no acute distress, well developed, alert and awake Nutritional Appearance: overweight Orientation/consciousness: patient oriented x3 Limitations: no limitations HEENT Head: Yes normal to inspection, Yes normocephalic and Yes atraumatic Ears: hearing grossly normal bilaterally Eyes General: appearance normal, both eyes and all related structures Neck Neck: Yes normal visual inspection and Yes trachea midline Chest Chest palpation & inspection: normal inspection of the chest Resp Effort & Inspection: normal respiratory effort and able to speak in complete sentences Cardio Rate: regular rate GI Inspection: Yes normal to inspection General: Yes no CVA tenderness Back/Spine/Pelvis Back: no CVA tenderness Skin General skin exam: no rashes or lesions noted Neuro General: patient oriented x3 Extrem General: Yes normal to inspection Psych Appearance: grossly normal and well kempt Mental Status: mental status grossly normal Speech and movement: Normal speech and movement present and Clear speech present Affect: normal affect Attitude: cooperative Thought process: Normal thought process present Thought content: Normal thought content present Insight: Fair insight present (Psych) Judgement: Fair judgement present (Psych) Office Procedures Post Void Residual Post Residual Void Post Void Residual (PVR): 50 [id number] Void Residual by ultrasound Results AMB Urinalysis, Automated UA Leukoctes 0 Niurka/uL Last Edit by barcoo on 09/26/24 15:21 UA Nitrite Negative Last Edit by barcoo on 09/26/24 15:21 UA Urobilinogen 0.2 mg/dL Last Edit by barcoo on 09/26/24 15:21 UA Protein 0 mg/dL Last Edit by barcoo on 09/26/24 15:21 UA pH 6.0 Last Edit by barcoo on 09/26/24 15:21 UA Blood 0 Eladio/uL Last Edit by barcoo on 09/26/24 15:21 UA Specific [place] 1.010 Last Edit by barcoo on 09/26/24 15:21 UA Ketone Negative Last Edit by barcoo on 09/26/24 15:21 UA Bilirubin 0 mg/dL Last Edit by barcoo on 09/26/24 15:21 UA Glucose 0 mg/dL Last Edit by barcoo on 09/26/24 15:21 Results Reviewed Results Reviewed: Laboratory Last Values Urine pH (Auto) 6.0 09/26/24 15:18 Specific [place] (Auto) 1.010 09/26/24 15:18 Urine Protein (Auto) 0 mg/dL 09/26/24 15:18 Glucose (UA)(Auto) 0 mg/dL 09/26/24 15:18 Urine Ketones (Auto) Negative 09/26/24 15:18 Urine Blood (Auto) 0 Eladio/uL 09/26/24 15:18 Urine Nitrite (Auto) Negative 09/26/24 15:18 Urine Bilirubin (Auto) 0 mg/dL 09/26/24 15:18 Urine Urobilinogen (Auto) 0.2 mg/dL 09/26/24 15:18 Leukocyte Esterase (Auto) 0 Niurka/uL 09/26/24 15:18 Assessment & Plan Assessment & Plan (1) Bladder wall thickening: Code(s): N32.89 - Other specified disorders of bladder Category: Medical (2) BPH (benign prostatic hyperplasia): Code(s): N40.0 - Benign prostatic hyperplasia without lower urinary tract symptoms Category: Medical Qualifiers: Lower urinary tract symptom presence: symptoms present Lower urinary tract symptom detail: weak urinary stream Qualified Code(s): N40.1 - Benign prostatic hyperplasia with lower urinary tract symptoms; R39.12 - Poor urinary stream Plan In office urinalysis results reviewed with the patient today; as noted above. PVR 50ml's Recent PSA results reviewed the patient today; as noted above. Continue finasteride and terazosin as prescribed; refill provided. Patient currently denies any bothersome urinary issues or concerns. He reports be happy with current voiding parameters. Follow-up in 6 months with PVR; or sooner with any issues, concerns, and or questions Orders: Orders AMB Urinalysis Automated Today Z13.9 - Encounter for screening, unspecified AMB Post Void Residual by ultrasound Today N40.1 - Benign prostatic hyperplasia with lower urinary tract symptoms, R39.12 - Poor urinary stream Medications: Changed From terazosin 5 mg PO BEDTIME 90 days 90 caps 0RF N40.1 - Benign prostatic hyperplasia with lower urinary tract symptoms, R35.0 - Frequency of micturition To terazosin 10 mg (2 x 5 mg) PO BEDTIME 180 caps 2RF 90 days N40.1 - Benign prostatic hyperplasia with lower urinary tract symptoms, R35.0 - Frequency of micturition Refilled finasteride 5 mg PO DAILY 90 tabs 3RF 90 days N40.1 - Benign prostatic hyperplasia with lower urinary tract symptoms, R33.9 - Retention of urine, unspecified Patient Instructions: The patient had an opportunity to ask questions regarding the treatment plan. All questions were answered. Physical exam, labs, and imaging were discussed and reviewed in detail. As well as risks, benefits, and discussion of treatment choices. No major barriers to understanding were identified. The patient expre ssed understanding and agreement with the above treatment plan. The patient was made aware they should contact our office by phone for worsening of their current condition, the appearance of new symptoms, or with any questions or concerns. Compliance is encouraged with any medications and follow up testing that is ordered. It is a privilege to be allowed the opportunity to participate in? your urological care.? Again, if you have any questions or concerns If you have any questions or concerns please do not hesitate to contact me. The office is [phone]. This note is constructed using voice recognition software. While every effort has been made to ensure accuracy internet marketing specialist errors may have been included. Yours sincerely, DYLLAN Claros Coding Level of Care Code Est Pt Level 3 (35529) Diagnoses Bladder wall thickening N32.89 Benign prostatic hyperplasia with weak urinary stream N40.1; R39.12 Lower urinary tract symptom presence: symptoms present Lower urinary tract symptom detail: weak urinary stream CPT Codes Post Residual Void - PVR CPT Code: 53446-Uuro Void Residual by ultrasound ([id number])
== END 2024-09-26 14:10 | disposition home or self-care (01) ==
PROVIDERS: PCP Internal Medicine; Visit Provider Nurse Practitioner Family
DX: N32.89 Other specified disorders of bladder (principal); N40.1 Benign prostatic hyperplasia with lower urinary tract symptoms; R39.12 Poor urinary stream; Z13.9 Encounter for screening, unspecified
CPT/HCPCS: 99213

== ENCOUNTER → 2024-09-26 13:38 | Outpatient (BNVA) | payer OTHER, SELFPAY | PROVIDERS: PCP Internal Medicine; Visit Provider Nurse Practitioner Family | DX: N32.89 Other specified disorders of bladder (principal); N40.1 Benign prostatic hyperplasia with lower urinary tract symptoms; R39.12 Poor urinary stream; R35.0 Frequency of micturition; R33.8 Other retention of urine | CPT/HCPCS: 51798; 81003; 99212 ==

== ENCOUNTER 2025-01-02 09:02 | Outpatient (AMB) | payer OTHER, SELFPAY ==
--- NOTE | 2025-01-02 09:10 | MHC.PC.OV ---
Vital Signs 01/02/25 09:12 Height 5 ft 7 in Weight 184 lb 2 oz BMI 28.8 BP 122/60 Blood Pressure Location Lt brachial Position Sitting Pulse 78 Pulse Source Pulse Oximeter Temp 97.3 F Temp Source Temporal Artery Scan Pulse Oximetry (%) 97 Oxygen Delivery Method Room Air Intake Visit Reasons: Annual Exam Intake Note: Patient is here today for a physical. 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: Not Required per policy Accompanied by: Self / Same As Patient Allergies No Known Allergies [No Known Allergies*] Allergy (Verified 01/02/25 09:11) Medication List - Last Reconciled 01/02/25 by Tavia Arellano MD albuterol sulfate 90 mcg/actuation (Ventolin HFA) 2 puffs inhalation Q6H PRN bupropion HCl XL 300 mg PO DAILY clonidine HCl 0.1 mg PO BID escitalopram oxalate 20 mg PO DAILY finasteride 5 mg PO DAILY 90 days hydroxyzine pamoate 25 mg PO BID omeprazole 40 mg PO DAILY terazosin 5 mg PO BEDTIME Tobacco use date assessed: 01/02/25 Dental Screening Dental Screen Date: 01/02/25 Did you have a dental visit in the last 12 months?: Yes Did you have a dental problem in the last 6 months where you did not have access to dental care?: No Was dental information given to patient?: Patient has dentist HPI Annual Exam HPI Details feel dizzy, wakes PFSH Medical History (Updated 01/02/25 @ 09:47 by Tavia Arellano MD) Elevated ferritin level Iron overload Anemia Anxiety and depression Hypoxemia associated with sleep Dislocation of finger PIP joint Blood pressure elevated without history of HTN Hospital discharge follow-up Obesity (BMI 30.0-34.9) Weak urinary stream Bladder trabeculation Enlarged prostate Numbness of left hand Hiatal hernia Alcohol abuse GERD (gastroesophageal reflux disease) Tobacco abuse Obstructive sleep apnea Surgical History No pertinent past surgical history Family History (Updated 01/02/25 @ 09:30 by Tavia Arellano MD) Father Alcohol abuse Mother Liver cancer Brother No problems noted. Brother Heart attack Sister Breast cancer Sister No problems noted. Sister No problems noted. Daughter No problems noted. Son No problems noted. Other Cancer Social History (Updated 01/02/25 @ 09:31 by Tavia Arellano MD) Housing: Apartment Alcohol intake: current Alcohol intake frequency: 3 or more drinks per day Alcohol type: hard liquor Comment: stopped 08/2023(told 12/2023), stopped 11/2024 Patient Tobacco Use Status: Current everyday Tobacco user Tobacco use type: Cigarette Cigarette Packs Per Day: 10 Years Smoked: pack Q 2 days e-Cigarette/Vaping Use: Never Used Second Hand Smoke Exposure: Yes service: No Current occupational status: unemployed Cognitive needs: No Hearing needs: No Vision needs: Yes (Glasses) Questionnaire PHQ-9 Over the last 2 weeks, how often have you been bothered by any of the following problems? 1. Little interest or pleasure in doing things: not at all 2. Feeling down, depressed, or hopeless: several days 3. Trouble falling or staying asleep, or sleeping too much: several days 4. Feeling tired or having little energy: nearly every day 5. Poor appetite or overeating: nearly every day 6. Feeling bad about yourself - or that you are a failure or have let yourself or your family down: nearly every day 7. Trouble concentrating on things, such as reading the newspaper or watching television: nearly every day 8. Moving or speaking so slowly that other people could have noticed. Or the opposite - being so fidgety or restless that you have been moving around a lot more than usual: nearly every day 9. Thoughts that you would be better off or of hurting yourself in some way: several days Total score: 18 Depression Screening Interpretation: Positive Depression Screening Done: Yes Source: Developed by Drs. Lobito Wise, Annamarie Springer, Oumar Soler and colleagues, with an educational sarwat from [employer]. Thrive Questionnaire Date Thrive assessed: 01/02/25 I am a: Parent/Caregiver What is your living situation today?: I do not have a steady places to live I choose not to answer this question Within the past 12 months, did the food you bought not last and you didn't have the money to get more?: Sometimes True Within the past 12 months, did you worry whether your food would run out before you got money to buy more?: Sometimes True Do you have trouble paying for medicines?: No Do you have trouble getting transportation to medical appointments?: No Do you have trouble paying your heating and electricity bill?: No Do you have trouble taking care of your child, family member or friend?: No Do you have trouble with day-to-day activities such as bathing, preparing meals, shopping, managing finances, etc.?: I choose not to answer this question Are you currently unemployed and looking for a job?: No Are you interested in more education?: No Please select the resources that you would like help with: None Currently or been in a relationship where the following occur: I choose not to answer THRIVE Score: 3 AUDIT C Alcohol Use Questionnaire (AUDIT-C) 1. How often do you have a drink containing alcohol?: 4 or more times a week 2. How many drinks containing alcohol do you have on a typical day when you are drinking?: 10 or more 3. How often do you have six or more drinks on one occasion?: Daily or almost daily Total Score: 12 YVONNE-7 AMB Questionnaire YVONNE-7 Date YVONNE - 7 assessed: 01/02/25 Feeling nervous, anxious, or on edge: 3 = Nearly every day Not being able to stop or control worryin = Nearly every day Worrying too much about different things: 3 = Nearly every day Trouble relaxin = Nearly every day Being so restless that it is hard to sit still: 3 = Nearly every day Becoming easily annoyed or irritable: 3 = Nearly every day Feeling afraid as if something awful might happen: 3 = Nearly every day Total YVONNE-7 score (0-4 normal; 5-9 mild; 10-14 moderate; 15-21 severe): 21 Source: Developed by Drs. Lobito Wise, Annamarie Springer, Oumar Soler and colleagues, with an educational sarwat from [employer]. Review of Systems Const Denies poor appetite and Denies weakness Eyes Denies no additional complaints ENT Reports Normal hearing present, Denies dizziness, Denies nasal congestion, Denies tinnitus and Denies sore throat Card Denies chest pain, Denies syncope, Denies rapid heart rate and Denies dyspnea Resp Denies cough and Denies dyspnea GI Denies change in stool character, Reports constipation, Denies diarrhea, Denies nausea and Denies vomiting Denies dysuria and Denies urinary frequency Neuro Reports Normal hearing present, Denies confusion, Denies dizziness, Denies syncope and Denies weakness Psych Denies confusion Physical exam (Primary Care) Vital Signs: Last Vital Signs Temp 97.3 F 01/02/25 09:12 Pulse 78 01/02/25 09:12 BP 122/60 01/02/25 09:12 Pulse Ox 97 01/02/25 09:12 Oxygen Delivery Method Room Air 01/02/25 09:12 BMI result Body Mass Index 28.8 Tobacco/Smoking Status: Tobacco use Status Tobacco use date assessed 01/02/25 01/02/25 09:19 Patient Tobacco Use Status Current everyday Tobacco 01/02/25 09:31 Tobacco use type Cigarette 01/02/25 09:31 e-Cigarette/Vaping Use Never Used 01/02/25 09:31 PHQ-9: PHQ-9 Score PHQ-9: Total score 18 01/02/25 09:28 Depression Screening Interpretation: Positive Thrive Assessment: Date of Thrive Assessment Date Thrive assessed 01/02/25 01/02/25 09:19 Currently or been in a relationship where the following occur: I choose not to answer Const General: No confusion Orientation/consciousness: No confusion HENMT Head: Yes normocephalic Ears: external ears normal and TM's normal bilaterally Face and sinus: Yes normal facial exam Mouth: moist mucous membranes Throat: Yes tonsils normal Eyes Conjunctivae: conjunctivae normal Pupils: Equal, round and reactive pupils present and Pupil accommodation reflex normal Direct Ophthalmoscopy: normal light reflex Neck Neck: No lymphadenopathy Thyroid: Thyroid normal Chest Chest palpation & inspection: normal inspection of the chest Resp Effort & Inspection: normal respiratory effort and no audible wheezes Auscultation: clear to auscultation bilaterally, no crackles, no wheezes and lung sounds not diminished Cardio Rate: regular rate Rhythm: regular rhythm Peripheral pulses: radial pulses present and dorsalis pedis present GI Other: GUAIAC NEGATIVE STOOLS prostate mildly enlarged Palpation (GI): no masses Auscultation: normal bowel sounds and normoactive bowel sounds Male General Exam: Yes normal external exam Skin General skin exam: no rashes or lesions noted Rashes: no rashes Neuro General: No confusion Cranial nerves: Yes Equal, round and reactive pupils present and Yes Normal hearing present Cognition (Neuro): normal cognition Gait exam (Neuro): Normal gait present Motor exam (neuro): 5/5 motor strength present throughout Deep tendon reflexes (DTR's): Right brachioradialis reflex intensity grade: 2+, Left brachioradialis reflex intensity grade: 2+, Right patellar reflex intensity grade: 2+ and Left patellar reflex intensity grade: 2+ Extrem General: No edema Coding Level of Care Code Est Pt Prev Care 40-64y(38783) Diagnoses Physical exam, annual Z00.00 Obstructive sleep apnea G47.33 Gastroesophageal reflux disease without esophagitis K21.9 Esophagitis presence: without esophagitis Tobacco abuse Z72.0 Alcohol abuse F10.10 Fatty liver K76.0 Moderate episode of recurrent major depressive disorder F33.1 Active/Remission status: currently active Major depression episode severity: moderate Overweight (BMI 25.0-29.9) E66.3 Benign prostatic hyperplasia with weak urinary stream N40.1; R39.12 Lower urinary tract symptom detail: weak urinary stream Lower urinary tract symptom presence: symptoms present Hypercholesterolemia E78.00 Upper back pain on left side M54.9 Assessment & Plan Assessment & Plan (1) Physical exam, annual: Code(s): Z00.00 - Encounter for general adult medical examination without abnormal findings Category: Medical Plan: Patient is advised to eat healthy, keep well hydrated, keep active and have adequate sleep. (2) Obstructive sleep apnea: Comment: Moderately severe degree of sleep apnea. The AHI was 28/hr and oxygen rhonda was 75 %. CPAP Code(s): G47.33 - Obstructive sleep apnea (adult) (pediatric) Category: Medical Plan: Continues to use the CPAP more than 4 hours a night and benefits from this. (3) GERD (gastroesophageal reflux disease): Code(s): K21.9 - Gastro-esophageal reflux disease without esophagitis Category: Medical Qualifiers: Esophagitis presence: without esophagitis Qualified Code(s): K21.9 - Gastro-esophageal reflux disease without esophagitis Plan: Avoid the foods that causes that usually spicy foods, tomato products, juices, coffee, soda and foods that your sensitive to. After eating do not lie down, allow 3-4 hours before in lie down. And keep the head of bed above 30 degrees to avoid the acid from going up. (4) Tobacco abuse: Code(s): Z72.0 - Tobacco use Category: Medical Plan: Patient is strongly advise to stop smoking! (5) Alcohol abuse: Code(s): F10.10 - Alcohol abuse, uncomplicated Category: Social Hx Plan: Patient is recommended to abstain from alcohol (6) Fatty liver: Code(s): K76.0 - Fatty (change of) liver, not elsewhere classified Category: Medical Plan: Low-fat diet and exercise (7) Recurrent major depression: Comment: Has been referred [facility] Q month Code(s): F33.9 - Major depressive disorder, recurrent, unspecified Category: Medical Qualifiers: Active/Remission status: currently active Major depression episode severity: moderate Qualified Code(s): F33.1 - Major depressive disorder, recurrent, moderate Plan: Patient on Bue per prior on, Lexapro and hydroxyzine (8) Overweight (BMI 25.0-29.9): Code(s): E66.3 - Overweight Category: Medical Plan: Diet and exercise (9) BPH (benign prostatic hyperplasia): Code(s): N40.0 - Benign prostatic hyperplasia without lower urinary tract symptoms Category: Medical Qualifiers: Lower urinary tract symptom detail: weak urinary stream Lower urinary tract symptom presence: symptoms present Qualified Code(s): N40.1 - Benign prostatic hyperplasia with lower urinary tract symptoms; R39.12 - Poor urinary stream Plan: Patient follows up with urology on terazosin and finasteride (10) Hypercholesterolemia: Code(s): E78.00 - Pure hypercholesterolemia, unspecified Category: Medical Plan: Avoid fried foods, chicken skin, eggs, butter margarine, pastries and meat. Be it pork or beef they have a lot of cholesterol LDL goal of less than 130 and triglyceride of less than 150. (11) Upper back pain on left side: Code(s): M54.9 - Dorsalgia, unspecified Category: Medical Plan History of Present Illness The patient is a 59-year-old male presenting with urinary difficulties and medication side effects associated with increased dosage of terazosin. The patient has managed benign prostatic hyperplasia with terazosin and finasteride, but recent dosage changes have resulted in worsening symptoms, including blurry vision and issues with urination. Over a weekend, stopping the medication led to back pain and distress due to inability to urinate properly. The patient has a medical history of obstructive sleep apnea, which is managed using CPAP. Additionally, there is a history of gastroesophageal reflux disease controlled with omeprazole, and generalized anxiety disorder managed with bupropion and Lexapro. Despite a prior history of alcohol abuse, the patient reports abstaining from alcohol for the past month. The patient is overweight but reports an eight-pound weight loss since the last visit. There is also a condition of hypercholesterolemia being addressed through lifestyle modification and targeted medication. A family history of liver cancer is noted, and primary pulmonary hypertension is under surveillance. Health Maintenance - Continued CPAP usage for obstructive sleep apnea. - Lifestyle modifications for hypercholesterolemia: aiming for an LDL level of less than 130 mg/dL and triglycerides of less than 150 mg/dL. - Dietary and exercise regimen discussions for weight management. - Routine blood monitoring and liver function tests considering the family history of liver cancer. - Urgent need for colonoscopy as last done in 2017. - Vaccinations up-to-date: tetanus, pneumonia, shingles. Social History - Past history of alcohol abuse with current sobriety for over a month. - Smoking history with current use of approximately lbb-fke-[id number]-half packs every two days. - Discussed need for smoking cessation for health improvement. - Reports issues with urination and medication side effects, potentially impacting daily activities. Review of Systems - Constitutional: Reports weight loss of 8 pounds; no recent fever. - Respiratory: Denies nocturnal dyspnea. - Cardiac: Reports regular palpitations post-albuterol use. - Gastrointestinal: Denies nausea and heartburn with current omeprazole use. - Genitourinary: Reports nocturia and difficulty with urination. - Neurological: Reports dizziness and lack of strength. - EENT: Reports blurry vision associated with medications. - Musculoskeletal: Denies joint pain. Physical Exam General: Cooperative, overweight, healthy appearing, comfortable, no acute distress and well developed Orientation: Patient oriented x3 Limitations: No limitations Head: Normal to inspection Ears: Hearing grossly normal bilaterally, but patient reports some hearing issues Nose: Normal external nose present Face and sinus: Normal facial exam Eyes: Appearance normal, but patient reports blurry vision possibly due to medication Neck: Normal visual inspection and Yes full ROM Respiratory: Normal respiratory effort and able to speak in complete sentences. Clear to auscultation bilaterally, but patient reports shortness of breath upon exertion Cardiovascular: Regular rate and rhythm. Normal S1 and S2 GI: Normal to inspection. Soft to palpation and nontender Skin: No rashes or lesions noted, but patient reports pain and itching in the ear area Neuro: Patient oriented x3 Extremities: Normal to inspection Results - Labs: Recent normal blood counts, electrolytes, and renal function. Mildly elevated liver enzymes (previously stable). High-normal cholesterol and triglycerides. - Tests: PSA, B12, and thyroid levels within normal range. Urine tests negative. Recent urine showed evidence of benign prostatic hyperplasia. - Imaging/Procedures: Not specified in the visit discussion. Plan 1. Liver functions will continue to be monitored due to mild enzyme elevation and family history of liver cancer. The patient is urged to pursue smoking cessation and to monitor respiratory status, with continued use of albuterol as necessary. Continued follow-up and adaptation of current regimens are planned, considering the patient's symptoms and family history.: Patient was informed and verbally consented to the use of an ambient scribe for clinic note documentation during this visit. Discussion Notes I discussed with the patient the presentation and management of their genitourinary symptoms, highlighting the importance of consulting urology regarding the side effects from terazosin. We considered a switch to tamsulosin and reinforced the necessity of follow-up on this issue. The patient's current lifestyle adjustments for managing obesity and hypercholesterolemia were reviewed, emphasizing their importance. I advised scheduling a colonoscopy and continuous monitoring of liver function due to the family history of liver cancer. Smoking cessation was strongly advised, with continued use of albuterol as needed for respiratory symptoms. We agreed on the necessity of regular follow-up visits to ensure their concerns and symptoms are adequately managed. Patient Instructions - Discuss terazosin side effects with your urologist. - Continue using CPAP daily for sleep apnea. - Follow your low-fat diet and exercise routine. - Schedule your colonoscopy promptly. - Quit smoking to improve health. - Use albuterol inhaler as prescribed. - Monitor your cholesterol and liver function regularly. - Drink plenty of water and aim for a healthy weight. - Follow up with your doctor regarding your symptoms. Orders: Orders Thyroid Stimulating Hormone Today Tavia Arellano MD E78.00 - Pure hypercholesterolemia, unspecified Lipid Panel Today Tavia Arellano MD E78.00 - Pure hypercholesterolemia, unspecified Free T4 (Free Thyroxine) Today Tavia Arellano MD E78.00 - Pure hypercholesterolemia, unspecified Vitamin B12 and Folate Today Tavia Arellano MD E78.00 - Pure hypercholesterolemia, unspecified Prostate Specific Antigen Scr Today Tavia Arellano MD E78.00 - Pure hypercholesterolemia, unspecified XR chest 2V Today Tavia Arellano MD M54.9 - Dorsalgia, unspecified Referrals Gastroenterology Referral Tavia Arellano MD K21.9 - Gastro-esophageal reflux disease without esophagitis Medications: New fluticasone propionate 50 mcg/actuation (Flonase Allergy Relief) administer into each nostril 2 sprays intranasal DAILY 16 grams 1RF Tavia Arellano MD Changed From terazosin 10 mg (2 x 5 mg) PO BEDTIME 90 days 180 caps 2RF N40.1 - Benign prostatic hyperplasia with lower urinary tract symptoms, R35.0 - Frequency of micturition To terazosin 5 mg PO BEDTIME N40.1 - Benign prostatic hyperplasia with lower urinary tract symptoms, R35.0 - Frequency of micturition ZACHARY Claros-BC Refilled omeprazole 40 mg PO DAILY 180 caps 1RF Tavia Arellano MD K21.9 - Gastro-esophageal reflux disease without esophagitis albuterol sulfate 90 mcg/actuation (Ventolin HFA) 2 puffs inhalation Q6H PRN 8.5 grams 0RF shortness of breath or wheezing Tavia Arellano MD Z72.0 - Tobacco use
[2025-01-02 09:12] VITALS: BP 122/60; PULSE 78; TEMP 36.3; O2SAT 97; BMI 28.8
--- OUTSIDE RECORDS SUMMARY | 2025-01-02 09:46 | XMS_ITS | Encounter Summary ---
Author Organization [employer] 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 Name Role Phone Unavailable Primary Care Provider Unavailabl e Encounter Details Date Type Department Care Team (Latest Contact Info) Description 01/21/2022 Abstract [facility] CONVERSIONS Dental, Provider, DDS Social History Tobacco Use Types Packs/Day Years Used Date Smoking Tobacco: Never Assessed Sex and Gender Information Value Date Recorded Sex Assigned at Male 07/06/2022 10:34 AM EDT Legal Sex Male 10:34 AM EDT Gender Identity Choose not to disclose 10:34 AM EDT Sexual Orientation Choose not to disclose 2021 10:34 AM EDT documented as of this encounter Plan of Treatment Upcoming Encounters Date Type Department Care Team (Late st Contact Info) Description 05/10/2025 3:00 PM EDT Office Visit [facility] [address] [place] [address] Yury Nicole [address] [place] [address] documented as of this encounter Visit Diagnoses Not on filedocumented in this encounter
--- OUTSIDE RECORDS SUMMARY | 2025-01-02 09:46 | XMS_ITS | Clinical Summary ---
Author Organization [facility] Address [address] [place] [address] 7t [place] [address] Care Team Providers Care Staff Pharmacist Hospital Name Role Phone Unavailable Primary Care Provider Unavailabl e Allergies No known active allergies Medications acamprosate (Campral) 333 MG EC tablet 4 Active Ventolin HFA 108 (90 Base) MCG/ACT inhaler INHALE 2 PUFFS EVERY 6 HOURS NEEDED FOR SHORTNESS OF BREATH OR WHEEZING 4 Active cloNIDine (Catapres) 0.1 MG tablet 4 Active escitalopram (Lexapro) 20 MG tablet Take 20 mg by mouth Once per day. 4 Active finasteride (Proscar) 5 MG tablet Take 5 mg by mouth Once per day. 4 Active hydrOXYzine pamoate (Vistaril) 25 MG capsule 4 Active ibuprofen 800 MG tablet Take 1 tablet by mouth every 8 (eight) hours. 2 Active omeprazole (PriLOSEC) [address] capsule Take 40 mg by mouth Once per day. 4 Active tamsulosin (Flomax) 0.4 MG 24 hr capsule TAKE 1 CAPSULE BY MOUTH DAILY AT BEDTIME 4 Active Active Problems Problem Noted Date Diagnosed Date Generalized gingival recession, minimal 05/24/20 Missing teeth, acquired 05/24/2024 Retained dental root 06/01/2023 Dental calculus 06/01/2023 Periodontal disease 06/01/2023 Dental abscess 04/29/2023 Social History Tobacco Use Types Packs/Day Years Used Date Smoking Tobacco: Never Passive Smoke Exposure: Past Smokeless Tobacco: Never Tobacco Cessation:Counseling Given: No Alcohol Use Standard Drinks/Week Comments Defer 0 (1 standard drink = 0.6 oz pur e alcohol) Sex and Gender Information Value Date Recorded Sex Assigned at Male 07/06/2022 10:34 AM EDT Legal Sex Male 10:34 AM EDT Gender Identity Choose not to disclose 10:34 AM EDT Sexual Orientation Choose not to disclose 2021 10:34 AM EDT Last Filed Vital Signs Vital Sign Reading Time Taken Comments Blood Pressure 126/80 05/24/2024 9:05 AM EDT Pulse 76 05/24/2024 9:05 AM EDT Temperature - - Respiratory Rate - - Oxygen Saturation - - Inhaled Oxygen Concentration - - Weight - - Height - - Body Mass Index - - Plan of Treatment Upcoming Encounters Date Type Department Care Team (Late st Contact Info) Description 05/10/2025 3:00 PM EDT Office Visit [facility] ADULT DENTAL [address] [place] [address] Yury, Nicole [address] [place] [address] Health Maintenance Due Date Last Done Comments CT Colonography 1965 Colonoscopy 1965 Colorectal Cancer Screening 1965 Depression Screening 1965 FIT DNA/Cologuard 1965 FIT 1965 FOBT 1965 HIV Screening 1965 Lipid Panel 1965 SDOH Screening 1965 Sigmoidoscopy 1965 Alcohol/Substance Use Screening 1977 Hepatitis C Screening 1983 DTaP/Tdap/Td Vaccines (1 - Tdap) 1984 Hepatitis B Vaccines (1 of 3 - 19+ 3-dose series) 1984 Zoster Vaccines (1 of 2) 2015 COVID-19 Vaccine ( - season) 2024 Dental Oral Exam 11/22/2024 05/24/2024, , 11/30/2018, Additional history exists Dental Prophylaxis 11/22/2024 05/24/2024 Tobacco Screening 05/24/2025 05/24/2024 Dental X-Ray: Bitewings 05/25/2025 05/24/20 24, 06/01/2023, 04/30/2022, Additional history exists Dental X-Ray: Full Mouth 06/02/2026 023, 01/21/2022, 02/18/2018 RSV Patients and Patients Aged 60 years or older (1 - 1-dose 75+ series) 2040 Pneumococcal Vaccine: 50+ Years Completed 12/27/2023 Influenza Vaccine Completed 08/23/2024, 08/18/2022 HIB Vaccines Aged Out No longer eligi ble based on patient's age to complete this topic HPV Vaccines Aged Out No longer eligi ble based on patient's age to complete this topic Hepatitis A Vaccines Aged Out No long er eligible based on patient's age to complete this topic IPV Vaccines Aged Out No longer eligi ble based on patient's age to complete this topic Meningococcal Vaccine Aged Out No felipa carloz eligible based on patient's age to complete this topic RSV under 20 months Aged Out No longe r eligible based on patient's age to complete this topic Rotavirus Vaccines Aged Out No longer eligible based on patient's age to complete this topic Procedures Procedure Name Priority Date/Time Associated Diagnosis Comments PROPHYLAXIS - ADULT Routine 05/24/2024 9 :00 AM EDT Dental calculus Generalized gingival recession, minimal Missing teeth, acquired Excessive attrition of teeth, limited to enamel BITEWINGS - 4 RADIOGRAPHIC IMAGES Routine 05/24/2024 9:00 AM EDT Dental calculus PERIODIC ORAL EVALUATION - ESTABLISHED PATIENT Routine 05/24/2024 9:00 AM EDT INTRAORAL - COMPLETE SERIES OF RADIOGRAPHIC IMAGES Routine 06/01/2023 8:00 AM EDT from Last 3 Months or Most Recently Relevant to Health Maintenance [facility] STAND ADULT Advance Directives Documents on File Type Date Recorded Patient E Business Project 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
--- OUTSIDE RECORDS SUMMARY | 2025-01-02 09:46 | XMS_ITS | Encounter Summary ---
Author Organization [facility] Address [address] [facility] 7t [place] [address] Care Team Providers Care Entertainment Production Professional Name Role Phone Unavailable Primary Care Provider Unavailabl e Encounter Details Date Type Department Care Team (Latest Contact Info) Description 11/30/2018 Abstract [facility] CONVERSIONS Dental, Provider, DDS Social History Tobacco [...] 05/10/2025 3:00 PM EDT Office Visit [facility] ADULT DENTAL [address] [place] [address] Yury, Nicole [address] [place] [address] documented as of this encounter Visit Diagnoses Not on filedocumented in this encounter
== END 2025-01-02 09:52 | disposition home or self-care (01) ==
LOC: HO.HMCH 09:06
PROVIDERS: PCP Internal Medicine; Visit Provider Internal Medicine
DX: Z00.00 Encounter for general adult medical examination without abnormal findings (principal); G47.33 Obstructive sleep apnea (adult) (pediatric); K21.9 Gastro-esophageal reflux disease without esophagitis; F33.1 Major depressive disorder, recurrent, moderate; Z72.0 Tobacco use; F10.10 Alcohol abuse, uncomplicated; K76.0 Fatty (change of) liver, not elsewhere classified; E66.3 Overweight; N40.1 Benign prostatic hyperplasia with lower urinary tract symptoms; R39.12 Poor urinary stream; E78.00 Pure hypercholesterolemia, unspecified; M54.9 Dorsalgia, unspecified

== ENCOUNTER → 2025-01-02 09:02 | Outpatient (BNVA) | payer OTHER, SELFPAY | PROVIDERS: PCP Internal Medicine; Visit Provider Internal Medicine | DX: Z00.00 Encounter for general adult medical examination without abnormal findings (principal); G47.33 Obstructive sleep apnea (adult) (pediatric); K21.9 Gastro-esophageal reflux disease without esophagitis; F10.10 Alcohol abuse, uncomplicated; K76.0 Fatty (change of) liver, not elsewhere classified; F33.1 Major depressive disorder, recurrent, moderate; E66.3 Overweight; N40.1 Benign prostatic hyperplasia with lower urinary tract symptoms; R39.12 Poor urinary stream; E78.00 Pure hypercholesterolemia, unspecified; M54.9 Dorsalgia, unspecified; Z72.0 Tobacco use; Z99.89 Dependence on other enabling machines and devices | CPT/HCPCS: 99396 ==

== ENCOUNTER 2025-01-17 13:17 | Outpatient (REF) | payer OTHER, SELFPAY ==
--- NOTE | ~2025-01-17 | XR_ITS ---
EXAMINATION: XR CHEST CLINICAL INFORMATION: M54.9 - Dorsalgia, unspecified COMPARISON: None available. TECHNIQUE: 2 views of the chest were obtained. FINDINGS: No significant abnormality is noted involving the heart, lungs, mediastinum, bony thorax or soft tissues. XR/XR chest 2V IMPRESSION: Unremarkable chest examination. Electronically signed by: Mateo Pepper MD 01/17/2025 03:33 PM EDT RP
--- OUTSIDE RECORDS SUMMARY | 2025-01-17 13:29 | XMS_ITS | Encounter Summary ---
Author Organization [employer] [facility] Address [address] [facility] [address]t [place] [address] Care Team Providers Care Communication Skills Instructor Name Role Phone Unavailable Primary Care Provider Unavailabl e Encounter Details Date Type Department Care Team (Latest Contact Info) Description 01/21/2022 Abstract [facility] CONVERSIONS Dental, Provider, DDS Social History Tobacco [...] Description 05/10/2025 3:00 PM EDT Office Visit [facility] ADULT DENTAL [address] [place] [address] Yury, Nicole [address] [place] [address] documented as of this encounter Visit Diagnoses Not on filedocumented in this encounter
--- OUTSIDE RECORDS SUMMARY | 2025-01-17 13:29 | XMS_ITS | Clinical Summary ---
Author Organization [employer] [facility] Address [address] [facility] [address]t [place] [address] Care Team Providers Care Deli Cutter Slicer Name Role Phone Unavailable Primary Care Provider [...] Description 05/10/2025 3:00 PM EDT Office Visit [facility] ADULT DENTAL [address] [place] [address] Yury, Nicole [address] [place] [address] Health Maintenance Due Date Last Done Comments [...] Most Recently Relevant to Health Maintenance Insurance [facility] MEDICAID STAND ADULT Member Subscriber Plan / Payer (Ef fective 2023-Present) Name:Aristides Dennison Relation to Subscriber:Self Name:Aristides Dennison Payer ID:Not on file Group ID:Not on file Type:Not on file Address: [place] [id number] Advance Directives Documents on File Type Date Recorded 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
--- OUTSIDE RECORDS SUMMARY | 2025-01-17 13:30 | XMS_ITS | Encounter Summary ---
Author Organization [employer] (ABAM) [facility] Address [address] [facility] [address] [place] [id number] Care Team Providers Care Manager Psychiatry Name Role Phone Unavailable Primary Care Provider Unavailabl e Encounter Details Date Type Department Care Team (Latest Contact Info) Description 11/30/2018 Abstract [facility] CONVERSIONS Dental, Provider, DDS Social History [...] Description 05/10/2025 3:00 PM EDT Office Visit [facility] ADULT DENTAL [address] [place] [address] Yury Nicole [address] [place] [address] documented as of this encounter Visit Diagnoses Not on filedocumented in this encounter
== END 2025-01-17 13:18 | disposition home or self-care (01) ==
LOC: HO.XRAY 13:17
PROVIDERS: PCP Internal Medicine; Visit Provider Internal Medicine
DX: M54.9 Dorsalgia, unspecified (principal)
CPT/HCPCS: 71046

== ENCOUNTER → 2025-01-17 13:22 | Outpatient (BNV) | payer OTHER, SELFPAY | PROVIDERS: PCP Internal Medicine; Visit Provider Radiology Diagnostic Radiology | DX: M54.9 Dorsalgia, unspecified (principal) | CPT/HCPCS: 71046 ==

== ENCOUNTER 2025-01-18 07:49 | Outpatient (REF) | payer OTHER, SELFPAY ==
--- OUTSIDE RECORDS SUMMARY | 2025-01-18 07:52 | XMS_ITS | Clinical Summary ---
Author Organization [employer] Address [address] [facility] [address]t [place] [address] Care Team Providers Care Operations Research Analyst Name Role Phone Unavailable Primary Care Provider [...] Description 05/10/2025 3:00 PM EDT Office Visit [facility] ADULT DENTAL [address] [place] [address] Yury, Nicole [address] [place] [address] Health Maintenance Due Date Last Done Comments [...] patient's age to complete this topic Meningococcal B Vaccine Aged Out No l onger eligible based on patient's age to complete [...] Most Recently Relevant to Health Maintenance Insurance [facility] MEDICAID STAND ADULT Advance Directives Documents on File Type Date Recorded 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
--- OUTSIDE RECORDS SUMMARY | 2025-01-18 07:52 | XMS_ITS | Encounter Summary ---
Author Organization [employer] [facility] Address [address] [facility] [address]t [address] Floor [place] [id number] Care Team Providers Care Respiratory Services Manager Name Role Phone Unavailable Primary Care Provider Unavailabl e Encounter Details Date Type Department Care Team (Latest Contact Info) Description 11/30/2018 Abstract [facility] CONVERSIONS Dental, Provider, DDS Social [...] Description 05/10/2025 3:00 PM EDT Office Visit [facility] ADULT DENTAL [address] [place] [address] Yury Nicole [address] [place] [address] documented as of this encounter Visit Diagnoses Not on filedocumented in this encounter
--- OUTSIDE RECORDS SUMMARY | 2025-01-18 07:52 | XMS_ITS | Encounter Summary ---
Author Organization [employer] [facility] Address [address] [facility] 7t [place] [address] Care Team Providers Care Railroad Brake Operator Name Role Phone Unavailable Primary Care Provider Unavailabl e Encounter Details Date Type Department Care Team (Latest Contact Info) Description 01/21/2022 Abstract [facility] CONVERSIONS Dental, Provider, DDS Social History [...] Description 05/10/2025 3:00 PM EDT Office Visit [facility] ADULT DENTAL [address] [place] [address] Yury, Nicole [address] [place] [address] documented as of this encounter Visit Diagnoses Not on filedocumented in this encounter
[2025-01-18 09:30] LABS: Cholesterol 184 mg/dL (<200); HDL Cholesterol 34 mg/dL (>40); LDL Cholesterol Calculated 133 mg/dL (<100); Triglycerides 85 mg/dL (<150)
[2025-01-18 09:56] LABS: Free T4 (Free Thyroxine) 0.85 ng/dL (0.71-1.85); Thyroid Stimulating Hormone 2.33 uIU/mL (0.32-4.0)
[2025-01-18 09:57] LABS: Folate 14.1 ng/mL (> or = 4.0); Prostate Specific Antigen Scr 3.82 ng/mL (<0.05-4.0); Vitamin B12 456 pg/mL (200-900)
== END 2025-01-18 07:50 | disposition home or self-care (01) ==
LOC: HO.LAB 07:49
PROVIDERS: PCP Internal Medicine; Visit Provider Internal Medicine
DX: E78.00 Pure hypercholesterolemia, unspecified (principal); N40.1 Benign prostatic hyperplasia with lower urinary tract symptoms; R39.12 Poor urinary stream; F33.1 Major depressive disorder, recurrent, moderate; K76.0 Fatty (change of) liver, not elsewhere classified; G47.33 Obstructive sleep apnea (adult) (pediatric); Z72.0 Tobacco use; Z79.899 Other long term (current) drug therapy
CPT/HCPCS: 36415; 80061; 82607; 82746; 84153; 84439; 84443; 99212

== ENCOUNTER 2025-01-18 13:52 | Outpatient (AMB) | payer OTHER, SELFPAY ==
[2025-01-18 13:54] VITALS: BP 130/72; PULSE 71; O2SAT 92; BMI 28.7
--- NOTE | 2025-01-18 13:54 | MHC.PC.OV ---
Vital Signs 01/18/25 13:54 Height 5 ft 7 in Weight 183 lb BMI 28.7 BP 130/72 Blood Pressure Location Lt brachial Position Sitting Pulse 71 Pulse Source Pulse Oximeter Pulse Oximetry (%) 92 Oxygen Delivery Method Room Air Intake Visit Reasons: YVONNE, etoh & smoking abuse Allergies No Known Allergies [No Known Allergies*] Allergy (Verified 01/18/25 13:54) Tobacco use date assessed: 01/02/25 Dental Screening Dental Screen Date: 01/02/25 [facility] Medical History (Updated 01/02/25 @ 09:47 by Tavia Arellano MD) Elevated ferritin level Iron overload Anemia Anxiety and depression Hypoxemia associated with sleep Dislocation of finger PIP joint Blood pressure elevated without history of HTN Hospital discharge follow-up Obesity (BMI 30.0-34.9) Weak urinary stream Bladder trabeculation Enlarged prostate Numbness of left hand Hiatal hernia Alcohol abuse GERD (gastroesophageal reflux disease) Tobacco abuse Obstructive sleep apnea Surgical History No pertinent past surgical history Family History (Updated 01/02/25 @ 09:30 by Tavia Arellano MD) Father Alcohol abuse Mother Liver cancer Brother No problems noted. Brother Heart attack Sister Breast cancer Sister No problems noted. Sister No problems noted. Daughter No problems noted. Son No problems noted. Other Cancer Social History (Updated 01/02/25 @ 09:31 by Tavia Arellano MD) Housing: Apartment Alcohol intake: current Alcohol intake frequency: 3 or more drinks per day Alcohol type: hard liquor Comment: stopped 08/2023(told 12/2023), stopped 11/2024 Patient Tobacco Use Status: Current everyday Tobacco user Tobacco use type: Cigarette Cigarette Packs Per Day: 10 Years Smoked: pack Q 2 days e-Cigarette/Vaping Use: Never Used Second Hand Smoke Exposure: Yes service: No Current occupational status: unemployed Cognitive needs: No Hearing needs: No Vision needs: Yes (Glasses) Questionnaire Thrive Questionnaire Date Thrive assessed: 01/02/25 I am a: Parent/Caregiver What is your living situation today?: I do not have a steady places to live I choose not to answer this question Within the past 12 months, did the food you bought not last and you didn't have the money to get more?: Sometimes True Within the past 12 months, did you worry whether your food would run out before you got money to buy more?: Sometimes True Do you have trouble paying for medicines?: No Do you have trouble getting transportation to medical appointments?: No Do you have trouble paying your heating and electricity bill?: No Do you have trouble taking care of your child, family member or friend?: No Do you have trouble with day-to-day activities such as bathing, preparing meals, shopping, managing finances, etc.?: I choose not to answer this question Are you currently unemployed and looking for a job?: No Are you interested in more education?: No Please select the resources that you would like help with: None Currently or been in a relationship where the following occur: I choose not to answer THRIVE Score: 3 YVONNE-7 AMB Questionnaire YVONNE-7 Date YVONNE - 7 assessed: 01/02/25 Source: Developed by Drs. Lobito Wise, Annamarie Springer, Oumar Soler and colleagues, with an educational sarwat from [employer]. Physical exam (Primary Care) Vital Signs: Last Vital Signs Pulse 71 01/18/25 13:54 BP 130/72 01/18/25 13:54 Pulse Ox 92 01/18/25 13:54 Oxygen Delivery Method Room Air 01/18/25 13:54 BMI result Body Mass Index 28.7 Tobacco/Smoking Status: Tobacco use Status Tobacco use date assessed 01/02/25 01/18/25 13:55 Patient Tobacco Use Status Current everyday Tobacco 01/18/25 13:55 Tobacco use type Cigarette 01/18/25 13:55 e-Cigarette/Vaping Use Never Used 01/18/25 13:55 Thrive Assessment: Date of Thrive Assessment Date Thrive assessed 01/02/25 01/18/25 13:55 Currently or been in a relationship where the following occur: I choose not to answer Const General: alert; No acute distress Eyes Conjunctivae: conjunctivae normal Resp Auscultation: clear to auscultation bilaterally Cardio Rate: regular rate Rhythm: regular rhythm GI Inspection: Yes normal to inspection Extrem General: Yes normal to inspection and No edema Coding Level of Care Code Est Pt Level 4 (07703) Complex EM visit Add On G2211 Diagnoses Hypercholesterolemia E78.00 Benign prostatic hyperplasia with weak urinary stream N40.1; R39.12 Lower urinary tract symptom detail: weak urinary stream Lower urinary tract symptom presence: symptoms present Moderate episode of recurrent major depressive disorder F33.1 Active/Remission status: currently active Major depression episode severity: moderate Fatty liver K76.0 Tobacco abuse Z72.0 Obstructive sleep apnea G47.33 Assessment & Plan Assessment & Plan (1) Hypercholesterolemia: Code(s): E78.00 - Pure hypercholesterolemia, unspecified Category: Medical Plan: Avoid fried foods, chicken skin, eggs, butter margarine, pastries and meat. Be it pork or beef they have a lot of cholesterol LDL goal of less than 130 and triglyceride of less than 150 (2) BPH (benign prostatic hyperplasia): Code(s): N40.0 - Benign prostatic hyperplasia without lower urinary tract symptoms Category: Medical Qualifiers: Lower urinary tract symptom detail: weak urinary stream Lower urinary tract symptom presence: symptoms present Qualified Code(s): N40.1 - Benign prostatic hyperplasia with lower urinary tract symptoms; R39.12 - Poor urinary stream Plan: Continue with finasteride 5 mg once a day and terazosin (3) Recurrent major depression: Comment: Has been referred [facility] Q month Code(s): F33.9 - Major depressive disorder, recurrent, unspecified Category: Medical Qualifiers: Active/Remission status: currently active Major depression episode severity: moderate Qualified Code(s): F33.1 - Major depressive disorder, recurrent, moderate Plan: Continue with present medication (4) Fatty liver: Code(s): K76.0 - Fatty (change of) liver, not elsewhere classified Category: Medical Plan: Low-fat diet and exercise (5) Tobacco abuse: Code(s): Z72.0 - Tobacco use Category: Medical Plan: Patient is strongly advised to stop smoking! (6) Obstructive sleep apnea: Comment: Moderately severe degree of sleep apnea. The AHI was 28/hr and oxygen rhonda was 75 %. CPAP Code(s): G47.33 - Obstructive sleep apnea (adult) (pediatric) Category: Medical Plan: Continue to use the CPAP more than 4 hours a night and benefits from this Plan History of Present Illness The patient is a 59-year-old male presenting with a follow-up on multiple chronic conditions including hypercholesterolemia, obstructive sleep apnea, and benign prostatic hyperplasia. He was last seen on January 02, 2025, at which time bladder wall thickening was noted and a urology referral was made. Previously, chest x-rays revealed normal results and the last complete blood count from September 22 indicated no abnormal findings. Electrolytes and renal function tests showed no concerns. The patient's low-density lipoprotein (LDL) cholesterol levels have increased over the past months: from 98 in May, 113 in September, to 133 most recently. The target LDL goal is less than 130 mg/dL. Other blood parameters such as B12, folic acid, and thyroid function remain within normal ranges. The patient reports an irregular use of CPAP, generally using it as needed but not consistently over four hours per night, which is concerning for his obstructive sleep apnea management. He has a history of alcohol abuse but reports abstaining from alcohol for almost three months. He continues to smoke despite being strongly advised to quit smoking due to its negative health implications. Currently, he is on bupropion, clonidine, Lexapro (escitalopram), and hydroxyzine for his anxiety and depression, with reported improvement but no engagement in formal counseling. His psychiatric care includes interactions every 15 days with a psychiatrist, [place]. For BPH, he is on finasteride and terazosin which have reportedly caused blurred vision and a sensation of cold. Health Maintenance - Tetanus vaccination up to date - Shingles vaccination up to date (completed two-dose series) - Pneumonia vaccination completed - Cholesterol management discussed with LDL goal <130 mg/dL - Advised to maintain low-fat diet and increase physical activity - Strong recommendation to cease tobacco use - Advised to consistently use CPAP for obstructive sleep apnea Social History - Reports history of alcohol abuse, currently abstinent for approximately three months - Active smoker, advised to quit - Lives in a supported environment with access to a psychiatrist every 15 days - Informed on the importance of low-cholesterol diet, limiting egg yolks to twice a week Review of Systems - Respiratory: Reports no increased use of albuterol inhaler - Cardiovascular: Denies chest pain, blood pressure reportedly stable - Gastrointestinal: Denies current GERD exacerbation - Genitourinary: Reports minor blurred vision and chills possibly related to medication - Neurological: Denies headaches or dizziness - Psychological: Reports anxiety, depression managed with medications - Sleep: Reports inconsistent use of CPAP Physical Exam Results - Labs: Increasing LDL cholesterol levels noted, rising from 98 in May to 133 most recently - Imaging: Chest x-rays revealed normal results as previously noted Plan Focused on hypercholesterolemia and recommended adherence to a low-fat diet alongside exercise, planning to monitor cholesterol levels regularly. Continued current medications for Benign Prostatic Hyperplasia but with consideration of side effects for future adjustment. Reinforced the importance of smoking cessation and proper use of CPAP machine as these are critical in managing obstructive sleep apnea. Reaffirmed psychiatric medication regimen's effectiveness, continued engagement with mental health services, and ensured up-to-date vaccinations were discussed. Patient was informed and verbally consented to the use of an ambient scribe for clinic note documentation during this visit. Discussion Notes I reiterated the importance of adhering strictly to prescribed lifestyle modifications, primarily focusing on cholesterol reduction and reinforcing consistent CPAP usage to manage obstructive sleep apnea. The risks of tobacco use were discussed extensively alongside strategies for cessation. The patient acknowledged past difficulties with consistent psychiatric treatment but expressed satisfaction with current medication. We confirmed vaccination status, ensuring all adult immunizations were completed for comprehensive health maintenance. Additionally, we reviewed the potential need to adjust his BPH medication based on side effects impacting his quality of life. I advised scheduling of subsequent blood work in six months to monitor cholesterol changes and any further intervention necessity. Patient Instructions - Follow a low-fat diet, focusing on reducing cholesterol intake - Engage in regular physical activity - Use CPAP for at least four hours each night - Stop smoking - Keep the mood and anxiety medications as prescribed by psychiatrist - Monitor cholesterol levels with future testing in six months - Call immediately if experiencing significant medication side effects - Stay aware of upcoming follow-up appointments Orders: Orders Comprehensive Met. Panel 6 Months E78.00 - Pure hypercholesterolemia, unspecified Lipid Panel 6 Months E78.00 - Pure hypercholesterolemia, unspecified Thyroid Stimulating Hormone 6 Months E78.00 - Pure hypercholesterolemia, unspecified Vitamin B12 and Folate 6 Months E78.00 - Pure hypercholesterolemia, unspecified Complete Blood Count Auto Diff 6 Months E78.00 - Pure hypercholesterolemia, unspecified Free T4 (Free Thyroxine) 6 Months E78.00 - Pure hypercholesterolemia, unspecified
--- OUTSIDE RECORDS SUMMARY | 2025-01-18 14:32 | XMS_ITS | Clinical Summary ---
Author Organization [employer] Address [address] [facility] [address]t [place] [address] Care Team Providers Care Irrigation Worker Name Role Phone Unavailable Primary Care Provider [...] Description 05/10/2025 3:00 PM EDT Office Visit [facility] ADULT DENTAL [address] [place] [address] Yury, Nicole [address] [place] [address] Health Maintenance Due Date Last Done Comments [...] Most Recently Relevant to Health Maintenance Insurance [facility] MEDICAID STAND ADULT Advance Directives Documents on File Type Date Recorded Patient Display Designer Expl 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
--- OUTSIDE RECORDS SUMMARY | 2025-01-18 14:32 | XMS_ITS | Encounter Summary ---
Author Organization [employer] [facility] Address [address] [facility] [address] 7t h Floor [place] [id number] Care Team Providers Care Inspector Watch Train Name Role Phone Unavailable Primary Care Provider Unavailabl e Encounter Details Date Type Department Care Team (Latest Contact Info) Description 11/30/2018 Abstract [facility] CONVERSIONS Dental, Provider, DDS Social History [...] Description 05/10/2025 3:00 PM EDT Office Visit [facility] ADULT DENTAL [address] [place] [address] Yury Nicole [address] [place] [address] documented as of this encounter Visit Diagnoses Not on filedocumented in this encounter
--- OUTSIDE RECORDS SUMMARY | 2025-01-18 14:32 | XMS_ITS | Encounter Summary ---
Author Organization [facility] Address [address] [facility] 7t [place] [address] Care Team Providers Care Charrer Name Role Phone Unavailable Primary Care Provider Unavailabl e Encounter Details Date Type Department Care Team (Latest Contact Info) Description 01/21/2022 Abstract [facility] CONVERSIONS Dental, Provider, DDS Social History [...] 3:00 PM EDT Office Visit [facility] ADULT DENTAL [address] [place] [address] Yury, Nicole [address] [place] [address] documented as of this encounter Visit Diagnoses Not on filedocumented in this encounter
== END 2025-01-18 15:27 | disposition home or self-care (01) ==
LOC: HO.HMCH 13:53
PROVIDERS: PCP Internal Medicine; Visit Provider Internal Medicine
DX: E78.00 Pure hypercholesterolemia, unspecified (principal); N40.1 Benign prostatic hyperplasia with lower urinary tract symptoms; R39.12 Poor urinary stream; F33.1 Major depressive disorder, recurrent, moderate; K76.0 Fatty (change of) liver, not elsewhere classified; Z72.0 Tobacco use; G47.33 Obstructive sleep apnea (adult) (pediatric)

== ENCOUNTER 2025-01-22 13:11 | Outpatient (AMB) | payer OTHER, SELFPAY ==
--- OUTSIDE RECORDS SUMMARY | 2025-01-22 13:14 | XMS_ITS | Clinical Summary ---
Author Organization [employer] Address [address] [facility] 7t [place] [address] Care Team Providers Care Spice Blender Name Role Phone Unavailable Primary Care Provider [...] 3:00 PM EDT Office Visit [facility] ADULT D[facility]AL [address] [place] [address] Yury, Nicole [address] [place] [address] Health Maintenance Due Date Last Done Comments [...] Most Recently Relevant to Health Maintenance Insurance [facility] MEDICAID STAND ADULT Advance Directives Documents on File Type Date Recorded Patient Fine Dining Server Expl 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
--- OUTSIDE RECORDS SUMMARY | 2025-01-22 13:14 | XMS_ITS | Encounter Summary ---
Author Organization [employer] [facility] Address [address] [place] [id number] Care Team Providers Care Laboratory Asst Name Role Phone Unavailable Primary Care Provider Unavailabl e Encounter Details Date Type Department Care Team (Latest Contact Info) Description 11/30/2018 Abstract [facility] CONVERSIONS Dental, Provider, DDS Social History Tobacco [...] Description 05/10/2025 3:00 PM EDT Office Visit [facility] ADULT DENT[facility] [address] [place] [address] Yury Nicole [address] [place] [address] documented as of this encounter Visit Diagnoses Not on filedocumented in this encounter
--- OUTSIDE RECORDS SUMMARY | 2025-01-22 13:14 | XMS_ITS | Encounter Summary ---
Author Organization [facility] [facility] Address [address] [facility] [address] [place] [address] Care Team Providers Care Talent Acquisition Specialist Name Role Phone Unavailable Primary Care Provider Unavailabl e Encounter Details Date Type Department Care Team (Latest Contact Info) Description 01/21/2022 Abstract [facility] CONVERSIONS Dental, Provider, DDS Social History [...] 3:00 PM EDT Office Visit [facility] ADULT DENTAL [address] [place] [address] Yury, Nicole [address] [place] [address] documented as of this encounter Visit Diagnoses Not on filedocumented in this encounter
--- NOTE | 2025-01-22 13:21 | MHC.OFFVIS ---
Vital Signs 01/22/25 13:22 Height 57 ft Weight 184 lb BMI 0.3 BP 110/74 Blood Pressure Location Rt brachial Position Sitting Intake Visit Reasons: Follow Up 6mo Intake Note: Patient presents follow up RAJESH. Compliance in chart(79/90 days, >=4hrs- 73 days, Median Pressure- 14.0, Median leaks- 22.7, AHI- 0.4) Allergies No Known Allergies [No Known Allergies*] Allergy (Verified 01/22/25 13:24) HPI Comments Details: 59 y/o male patient with RAJESH on CPAP presents for follow up visit. RAJESH compliance report 10/2024- 01/2025 Avg >4hours 73 days and 81%, Avg use total days 5 hours and 46min Press [id number] Press median 14.0 Leaks median 22.7 AHI is 0.4 The pressures are good now but the tank is smaller, if he sleeps more than 6 hours the water evaporates completely. The mask is so tight, that it leaves indentation yin around his neck and face, we discussed various mask options and straps to support and cover the mask, however will send him for a mask fitting to decide what works best for him. The pulling of the straps causes morning headaches daily. After the last visit, his pressure was changed to [id number], however he still feels the air does not feel comfortable. He notes that his previous machine had different heat and humidity settings, but he does not know how to adjust this on his machine. Review of his recent compliance report shows good reduction in residual AHI. His mood is irritable and he sees and he sees his pscyhiatrist as needed every 3 months on sertraline, declined increase today. Reviewed labs and reminded patient to continue vitamin D daily. He denies RLS symptoms, but wakes up at night with muscle spasms occasionally. [facility] Medical History Elevated ferritin level Iron overload Anemia Anxiety and depression Hypoxemia associated with sleep Dislocation of finger PIP joint Blood pressure elevated without history of HTN Hospital discharge follow-up Obesity (BMI 30.0-34.9) Weak urinary stream Bladder trabeculation Enlarged prostate Numbness of left hand Hiatal hernia Alcohol abuse GERD (gastroesophageal reflux disease) Tobacco abuse Obstructive sleep apnea Surgical History No pertinent past surgical history Family History Father Alcohol abuse Mother Liver cancer Brother No problems noted. Brother Heart attack Sister Breast cancer Sister No problems noted. Sister No problems noted. Daughter No problems noted. Son No problems noted. Other Cancer Social History (Updated 01/02/25 @ 09:31 by Tavia Arellano MD) Housing: Apartment Alcohol intake: current Alcohol intake frequency: 3 or more drinks per day Alcohol type: hard liquor Comment: stopped 08/2023(told 12/2023), stopped 11/2024 Patient Tobacco Use Status: Current everyday Tobacco user Tobacco use type: Cigarette Cigarette Packs Per Day: 10 Years Smoked: pack Q 2 days e-Cigarette/Vaping Use: Never Used Second Hand Smoke Exposure: Yes service: No Current occupational status: unemployed Cognitive needs: No Hearing needs: No Vision needs: Yes (Glasses) Physical Exam Vital Signs: Last Vital Signs BP 110/74 01/22/25 13:22 BMI result Body Mass Index 0.3 Const General: cooperative, comfortable and no acute distress Orientation/consciousness: patient oriented x3 HEENT Face and sinus: Yes face symmetric Eyes Pupils: Equal, round and reactive pupils present Neck Neck: Yes full ROM Resp Effort & Inspection: normal respiratory effort and able to speak in complete sentences Neuro General: patient oriented x3 and moves all extremities Cranial nerves: Yes Facial sensation intact/muscles of mastication intact, Yes Equal, round and reactive pupils present, Yes Normal accommodation reflex present, Yes Normal facial strength present, Yes Midline tongue present, Yes Ability to bilaterally rotate head present and Yes Ability to bilaterally elevate shoulders present Motor exam (neuro): 5/5 motor strength present throughout and Normal motor muscle tone present throughout Results Reviewed Results Reviewed: RAJESH compliance report 10/2024- 01/2025 Avg >4hours 73 days and 81%, Avg use total days 5 hours and 46min Press [id number] Press median 14.0 Leaks median 22.7 AHI is 0.4 Assessment & Plan Assessment & Plan (1) Hypoxemia associated with sleep: Code(s): G47.36 - Sleep related hypoventilation in conditions classified elsewhere Category: Medical (2) Obstructive sleep apnea: Comment: Moderately severe degree of sleep apnea. The AHI was 28/hr and oxygen rhonda was 75 %. CPAP Code(s): G47.33 - Obstructive sleep apnea (adult) (pediatric) Category: Medical (3) Alcohol abuse: Code(s): F10.10 - Alcohol abuse, uncomplicated Category: Social Hx (4) Constipation: Code(s): K59.00 - Constipation, unspecified Category: Medical Qualifiers: Constipation type: unspecified constipation type Qualified Code(s): K59.00 - Constipation, unspecified (5) Muscle cramps at night: Code(s): R25.2 - Cramp and spasm Category: Medical Plan Continue AutoPAP 14-20 cmH2O w/ EPR 2 and compliance is emphasized and more than 4 hours daily at night. Patient adjusted humidity and temp from auto to manual- Humidity 4, temp 72, may call [facility] for help with these settings. Stressed compliance, use CPAP nightly and more than 4 hours. Headaches daily mask fitting order. Smoking cessation is available if and when you are ready to set a goal and date. follow-up in clinic in 6 months or sooner prn. Orders: Orders Overnight Pulse Oximetry Today G47.33 - Obstructive sleep apnea (adult) (pediatric) Medications: New riboflavin (vitamin B2) take one pill daily at bedtime 100 mg PO DAILY 90 days 90 tabs 3RF alcohol remission MDD 100mg F10.10 - Alcohol abuse, uncomplicated magnesium oxide take on 400mg tablet daily at bedtime. 400 mg PO DAILY 30 tabs 3RF msucle cramps MDD 400mg K59.00 - Constipation, unspecified, R25.2 - Cramp and spasm Patient Instructions: Sleep Hygiene provided: set a scheduled bedtime and wake time to help regulate the circadian rhythm and balance the release of pituitary hormones. Sleep in a dark room, temperatures below 68 degrees, and no devices n bed. Limit caffeinated products 6 hours prior to bed, and limit fluids 2-4 hours prior to bed. Gentle night yoga, diffusing essential oils, and playing soft music can be relaxing. Wash mask, hoses, and replace filters, refill reservoir with water as needed. cpap questions and supplies: [address], [address] Email: [email or web address] Coding Level of Care Code Est Pt Level 4 (30894) Diagnoses Hypoxemia associated with sleep G47.36 Obstructive sleep apnea G47.33 Alcohol abuse F10.10 Constipation, unspecified constipation type K59.00 Constipation type: unspecified constipation type Muscle cramps at night R25.2 Time Spent (min) 30
[2025-01-22 13:22] VITALS: BP 110/74
== END 2025-01-22 14:09 | disposition home or self-care (01) ==
LOC: HO.HSMS 13:12
PROVIDERS: PCP Internal Medicine; Visit Provider Physician Assistant Medical
DX: G47.33 Obstructive sleep apnea (adult) (pediatric) (principal); G47.36 Sleep related hypoventilation in conditions classified elsewhere; F10.10 Alcohol abuse, uncomplicated; K59.00 Constipation, unspecified; R25.2 Cramp and spasm
CPT/HCPCS: 99214

== ENCOUNTER → 2025-01-22 13:11 | Outpatient (BNVA) | payer OTHER, SELFPAY | PROVIDERS: PCP Internal Medicine; Visit Provider Physician Assistant Medical | DX: G47.33 Obstructive sleep apnea (adult) (pediatric) (principal); G47.36 Sleep related hypoventilation in conditions classified elsewhere; F10.10 Alcohol abuse, uncomplicated; K59.00 Constipation, unspecified; R25.2 Cramp and spasm; Z99.89 Dependence on other enabling machines and devices | CPT/HCPCS: 99212 ==

== ENCOUNTER 2025-01-26 13:08 | Outpatient (AMB) | payer OTHER, SELFPAY ==
--- OUTSIDE RECORDS SUMMARY | 2025-01-26 13:12 | XMS_ITS | Clinical Summary ---
Author Organization [employer] Address [address] [facility] 7t [place] [address] Care Team Providers Care Filter Tender Name Role Phone Unavailable Primary Care Provider [...] Description 05/10/2025 3:00 PM EDT Office Visit [facility] ADULT DENTAL [address] [place] [address] Yury, Nicole [address] [place] [address] Health Maintenance Due Date Last Done Comments CT Colonography 1965 Colonoscopy 1965 Colorectal Cancer Screening 1965 Depression Screening 1965 FIT DNA/Cologuard 1965 FIT 1965 FOBT 1965 HIV Screening 1965 Lipid Panel 1965 SDOH Screening 1965 Sigmoidoscopy 1965 Disability Screening 1965 Alcohol/Substance Use Screening 1977 Hepatitis C Screening 1983 DTaP/Tdap/Td Vaccines (1 - Tdap) 1984 Hepatitis B Vaccines (1 of 3 - 19+ 3-dose series) 1984 Zoster Vaccines (1 of 2) 2015 COVID-19 Vaccine ( season) 2024 Dental Oral Exam 11/22/2024 05/24/2024, [...] Most Recently Relevant to Health Maintenance Insurance [facility] MEDICAID STAND ADULT Advance Directives Documents on File Type Date Recorded Patient Wood Model Maker Expl 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
--- NOTE | 2025-01-26 13:15 | A.OFFVIS_ITS ---
Vital Signs 01/26/25 13:19 Height 5 ft 7 in Weight 184 lb BMI 28.8 BP 100/66 Blood Pressure Location Rt brachial Position Sitting Pulse 74 Pulse Source Pulse Oximeter Pulse Oximetry (%) 98 Oxygen Delivery Method Room Air Intake Visit Reasons: Gastroesophageal reflux disease (GERD) Intake Note: NEW PATIENT for initial eval of GERD. CC; C.O. intermittent GERD persistence as well as occasional constipation and diarrhea. Pt has known alcohol dependency and is actively receiving tx for this. However, pt does believe some of his sx are related to his lifestyle, however; he was referred to our office for recall colo + EGD as well as sx mgmt per PCP. Steel Fabricating Supervisor Required: No Steel Fabricating Supervisor Services: Steel Fabricating Supervisor Offered & Declined Accompanied by: Self / Same As Patient Allergies No Known Allergies [No Known Allergies*] Allergy (Verified 01/26/25 13:19) HPI HPI Gastroesophageal reflux disease (GERD): Details: 59 year old? male with past medical history of hypercholesteremia, BPH, constipation, pituitary incidentaloma, pineal gland cyst, carpal tunnel syndrome, overweight, depression, alcohol abuse, fatty liver, GERD, RAJESH is here today for pre colonoscopy screening.? Patient was sent to us by his PCP.? Last colonoscopy over 10 years ago in [place].? Patient denies any gastrointestinal symptoms in the past or at present.? However patient does admit to have occasio nal acid reflux and sometimes constipation. Denies any personal or family history of gastrointestinal disease, colon polyps, or CRC.? Denies history of difficulty with sedation or anesthesia in the past.? History of sleep apnea.? Denies any history of cardiac, renal, pulmonary, or hepatic disease.?? No history of infectious? diseases like hepatitis A, B, C, HIV or tuberculosis.? Patient is not on any anticoagulation [facility] Medical History Elevated ferritin level Iron overload Anemia Anxiety and depression Hypoxemia associated with sleep Dislocation of finger PIP joint Blood pressure elevated without history of HTN Hospital discharge follow-up Obesity (BMI 30.0-34.9) Weak urinary stream Bladder trabeculation Enlarged prostate Numbness of left hand Hiatal hernia Alcohol abuse GERD (gastroesophageal reflux disease) Tobacco abuse Obstructive sleep apnea Surgical History No pertinent past surgical history Family History Father Alcohol abuse Mother Liver cancer Brother No problems noted. Brother Heart attack Sister Breast cancer Sister No problems noted. Sister No problems noted. Daughter No problems noted. Son No problems noted. Other Cancer Social History Housing: Apartment Alcohol intake: current Alcohol intake frequency: 3 or more drinks per day Alcohol type: hard liquor Comment: stopped 08/2023(told 12/2023), stopped 11/2024 Patient Tobacco Use Status: Current everyday Tobacco user Tobacco use type: Cigarette Cigarette Packs Per Day: 10 Years Smoked: pack Q 2 days e-Cigarette/Vaping Use: Never Used Second Hand Smoke Exposure: Yes service: No Current occupational status: unemployed Cognitive needs: No Hearing needs: No Vision needs: Yes (Glasses) Review of Systems Const Denies weight gain and Denies weight loss ENT Reports no additional complaints, Denies dysphagia and Denies odynophagia Card Reports no additional complaints Resp Reports no additional complaints GI Denies abdominal pain, Denies belching, Denies melena, Denies bloating, Denies change in bowel habits, Reports constipation (Occasional), Denies dysphagia, Denies excessive flatus, Denies dyspepsia, Reports heartburn (Occasional), Denies diarrhea, Denies loose stools, Denies nausea, Denies odynophagia and Denies vomiting Reports no additional complaints Musc Reports no additional complaints Neuro Reports no additional complaints Psych Reports no additional complaints Endo Reports no additional complaints Physical Exam Vital Signs: Last Vital Signs Pulse 74 01/26/25 13:19 BP 100/66 01/26/25 13:19 Pulse Ox 98 01/26/25 13:19 Oxygen Delivery Method Room Air 01/26/25 13:19 BMI result Body Mass Index 28.8 Const General: healthy appearing, no acute distress and well developed Nutritional Appearance: well nourished Orientation/consciousness: patient oriented x3 Resp Effort & Inspection: normal respiratory effort, able to speak in complete sentences, no tracheal deviation and symmetric chest movement Auscultation: clear to auscultation bilaterally Cardio Rate: regular rate GI Inspection: Yes normal to inspection and No distended Palpation (GI): Soft to palpation, not firm, nontender and No hepatosplenomegaly present Auscultation: normal bowel sounds General: Yes no CVA tenderness Back/Spine/Pelvis Back: no CVA tenderness Skin General skin exam: elasticity normal, turgor normal and dry skin Neuro General: patient oriented x3 Psych Appearance: grossly normal Mental Status: mental status grossly normal Thought content: Normal thought content present Assessment & Plan Assessment & Plan (1) GERD (gastroesophageal reflux disease): Code(s): K21.9 - Gastro-esophageal reflux disease without esophagitis Category: Medical Qualifiers: Esophagitis presence: without esophagitis Qualified Code(s): K21.9 - Gastro-esophageal reflux disease without esophagitis (2) Fatty liver: Code(s): K76.0 - Fatty (change of) liver, not elsewhere classified Category: Medical (3) Screen for colon cancer: Code(s): Z12.11 - Encounter for screening for malignant neoplasm of colon Plan Patient denies any GI, cardiac or respiratory symptoms.? Occasional acid reflux and constipation. Discussed with patient avoiding dietary triggers in late night snacking. Staying upright for minimum 3 hours after meals discussed with patient. Patient will be sent for upper endoscopy is well. Denies any issues with anesthesia in the past.? History of sleep apnea.? No history infectious diseases in the past or present.? Not on any anticoagulation therapy.? No family or personal history of colon cancer or polyps.? Patient denies melena, hematochezia, unintentional weight loss or ribbon like stools.? Discussed at length the pre-procedure,? prep, diet & medications as well as what to expect prior, during and after the procedure.?? Stressed the importance of good bowel prep.? Recommended the use of Vaseline or Calmoseptine OTC & baby wipes with bowel movements to promote comfort.? ?Patient verbalizes understanding and agrees to plan of care.? He was given the opportunity to ask questions and all questions answered.? We will see him after the procedure.? Medications: New bisacodyl (Dulcolax (bisacodyl)) 10 mg (2 x 5 mg) PO BEDTIME 180 tabs 4RF polyethylene glycol 3350 (Miralax) As directed by gastroenterology department at [facility] 238 grams PO ONCE 238 grams 0RF Z12.11 - Encounter for screening for malignant neoplasm of colon Coding Level of Care Code New Pt Level 3 (07721) Diagnoses Gastroesophageal reflux disease without esophagitis K21.9 Esophagitis presence: without esophagitis Fatty liver K76.0 Screen for colon cancer Z12.11 Time Spent (min) 40 Comment 30 minutes spent with patient and additional 10 minutes spent reviewing his records
[2025-01-26 13:19] VITALS: BP 100/66; PULSE 74; O2SAT 98; BMI 28.8
== END 2025-01-26 14:04 | disposition home or self-care (01) ==
LOC: HO.HGI 13:10
PROVIDERS: PCP Internal Medicine; Visit Provider Nurse Practitioner Family
DX: Z01.818 Encounter for other preprocedural examination (principal); Z12.11 Encounter for screening for malignant neoplasm of colon; K21.9 Gastro-esophageal reflux disease without esophagitis; K76.0 Fatty (change of) liver, not elsewhere classified
CPT/HCPCS: 99203

== ENCOUNTER → 2025-01-26 13:08 | Outpatient (BNVA) | payer OTHER, SELFPAY | PROVIDERS: PCP Internal Medicine; Visit Provider Nurse Practitioner Family | DX: Z01.818 Encounter for other preprocedural examination (principal); K21.9 Gastro-esophageal reflux disease without esophagitis; R19.7 Diarrhea, unspecified; K59.00 Constipation, unspecified; K76.0 Fatty (change of) liver, not elsewhere classified | CPT/HCPCS: 99202 ==

== ENCOUNTER 2025-03-19 07:32 | Day surgery (SDC) | payer OTHER, SELFPAY ==
--- OUTSIDE RECORDS SUMMARY | 2025-02-23 07:55 | XMS_ITS | Clinical Summary ---
Author Organization [facility] Address [address] [facility] 7t [place] [address] Care Team Providers Care Five Roll Refiner Batch Mixer Name Role Phone Unavailable Primary Care Provider [...] Description 05/10/2025 3:00 PM EDT Office Visit [facility] [address] [place] [address] Yury, Nicole [address] [place] [address] Health Maintenance Due Date Last Done Comments [...] Most Recently Relevant to Health Maintenance Insurance [facility] MEDICAID STAND ADULT Advance Directives Documents on File Type Date Recorded Patient Account Resolution Analyst Expl 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
[2025-03-15 09:29] VITALS: BMI 28.8
--- NOTE | 2025-03-16 09:50 | HO.ANESPROP2 ---
Documented by User: Ramonita Morrissey NP 03/16/25 09:53 HPI - Anesthesia Eval Consult details Narrative: 59yo M for Upper Endoscopy and Colonoscopy Daily ETOH with > 3 drinks daily RAJESH with CPAP PMFSH Active Problems Active Problems: All Active Problems Muscle cramps at night (Acute) Upper back pain on left side (Acute) Vision blurring (Acute) Bladder wall thickening (Acute) Hypercholesterolemia (Acute) BPH (benign prostatic hyperplasia) (Acute) Dysuria (Acute) Constipation (Acute) Pituitary incidentaloma (Acute) Pineal gland cyst (Acute) Left carpal tunnel syndrome (Acute) Overweight (BMI 25.0-29.9) (Acute) Physical exam, annual (Acute) Recurrent major depression (Acute) Intrahepatic bile duct dilation (Acute) Alcohol abuse (Acute) Macrocytosis without anemia (Acute) Fatty liver (Acute) RUQ abdominal pain (Acute) GERD (gastroesophageal reflux disease) (Acute) Tobacco abuse (Acute) Obstructive sleep apnea (Acute) Past Medical History Medical History Fatty liver Elevated ferritin level Anemia Anxiety and depression Obesity (BMI 30.0-34.9) Weak urinary stream Bladder trabeculation Enlarged prostate Numbness of left hand Hiatal hernia Alcohol abuse GERD (gastroesophageal reflux disease) Tobacco abuse Obstructive sleep apnea Family History Family History Father Alcohol abuse Mother Liver cancer Brother No problems noted. Brother Heart attack Sister Breast cancer Sister No problems noted. Sister No problems noted. Daughter No problems noted. Son No problems noted. Other Cancer Surgical History Surgical History History of esophagogastroduodenoscopy (EGD) H/O colonoscopy Social History Social History Housing: Apartment Alcohol intake: current Alcohol intake frequency: former alcohol drinker Alcohol type: hard liquor Comment: stopped 08/2023(told 12/2023), stopped 11/2024 Patient Tobacco Use Status: Current everyday Tobacco user Tobacco use type: Cigarette Cigarette Packs Per Day: 10 Cigarettes Per Day: 14 Years Smoked: pack Q 2 days e-Cigarette/Vaping Use: Never Used Second Hand Smoke Exposure: Yes Use of substances other than those prescribed or required for medical reasons: No Are you DNR?: No Advance Directives: No Advance Directives Information Provided: Yes service: No Current occupational status: unemployed Cognitive needs: No Hearing needs: No Vision needs: Yes (Glasses) Meds Allergies Allergy/AdvReac Type Severity Reaction Status Date / Time No Known Allergies (No Known Allergy Verified 03/19/25 07:39 Allergies*) Home Medications ?Medication ?Instructions ?Recorded ?Confirmed ?Last Taken ?Type clonidine HCl 0.1 mg tablet 0.1 mg PO BID 12/27/23 03/15/25 03/13/24 History bupropion HCl 300 mg 24 hr tablet, 300 mg PO DAILY 03/03/24 03/15/25 03/13/24 History extended release hydroxyzine pamoate 25 mg capsule 25 mg PO BID 03/14/24 03/15/25 03/13/24 History terazosin 5 mg capsule 5 mg PO BEDTIME 01/02/25 03/15/25 Unknown History mirtazapine 7.5 mg tablet 7.5 mg PO BEDTIME 01/22/25 03/15/25 Unknown History sertraline 50 mg tablet 50 mg PO BID 01/22/25 03/15/25 Unknown History acamprosate 333 mg tablet,delayed 666 mg PO TID 01/26/25 03/15/25 Unknown History release aripiprazole 10 mg tablet 10 mg PO DAILY 01/26/25 03/15/25 Unknown History Exam Height,Weight and Vital Signs: Height 5 ft 7 in Weight 83.461 kg Assessment and Plan Assessment Anesthesia Assessment: Chart Reviewed Documented by User: Emilia Lee MD 03/19/25 08:18 PMFSH Past Medical History Medical History Fatty liver Elevated ferritin level Anemia Anxiety and depression Obesity (BMI 30.0-34.9) Weak urinary stream Bladder trabeculation Enlarged prostate Numbness of left hand Hiatal hernia Alcohol abuse GERD (gastroesophageal reflux disease) Tobacco abuse Obstructive sleep apnea Family History Family History Father Alcohol abuse Mother Liver cancer Brother No problems noted. Brother Heart attack Sister Breast cancer Sister No problems noted. Sister No problems noted. Daughter No problems noted. Son No problems noted. Other Cancer Family history of problems with anesthesia: No Surgical History Surgical History History of esophagogastroduodenoscopy (EGD) H/O colonoscopy History of Problems with Anesthesia: No Social History Social History Housing: Apartment Alcohol intake: current Alcohol intake frequency: former alcohol drinker Alcohol type: hard liquor Comment: stopped 08/2023(told 12/2023), stopped 11/2024 Patient Tobacco Use Status: Current everyday Tobacco user Tobacco use type: Cigarette Cigarette Packs Per Day: 10 Cigarettes Per Day: 14 Years Smoked: pack Q 2 days e-Cigarette/Vaping Use: Never Used Second Hand Smoke Exposure: Yes Use of substances other than those prescribed or required for medical reasons: No Are you DNR?: No Advance Directives: No Advance Directives Information Provided: Yes service: No Current occupational status: unemployed Cognitive needs: No Hearing needs: No Vision needs: Yes (Glasses) Meds Allergies Allergy/AdvReac Type Severity Reaction Status Date / Time No Known Allergies (No Known Allergy Verified 03/19/25 07:39 Allergies*) Home Medications ?Medication ?Instructions ?Recorded ?Confirmed ?Last Taken ?Type clonidine HCl 0.1 mg tablet 0.1 mg PO BID 12/27/23 03/15/25 03/13/24 History bupropion HCl 300 mg 24 hr tablet, 300 mg PO DAILY 03/03/24 03/15/25 03/13/24 History extended release hydroxyzine pamoate 25 mg capsule 25 mg PO BID 03/14/24 03/15/25 03/13/24 History terazosin 5 mg capsule 5 mg PO BEDTIME 01/02/25 03/15/25 Unknown History mirtazapine 7.5 mg tablet 7.5 mg PO BEDTIME 01/22/25 03/15/25 Unknown History sertraline 50 mg tablet 50 mg PO BID 01/22/25 03/15/25 Unknown History acamprosate 333 mg tablet,delayed 666 mg PO TID 01/26/25 03/15/25 Unknown History release aripiprazole 10 mg tablet 10 mg PO DAILY 01/26/25 03/15/25 Unknown History Exam Airway Mallampati Class: III (small mouth opening ) TM Dist: <=3cm Neck ROM: Full Heart: rrr Lungs: cta Assessment and Plan Assessment Anesthesia Assessment: Anesthesia Plan Discussed Final Anesthetic Review Family History of Problems with Anesthesia: No History of Problems with Anesthesia: No NPO: Yes ASA Class: III Final Preanesthetic Review: No Changes in Pt Med Stat, Meds/Allgs Chart Reviewed, Consent Obtained/Reviewed and Anes Risks/Benef Reviewed Patient Risk: Intermediate Procedure Risk: Low Anesthetic Plan Anesthetic Plan: MAC: Disposition: Standard PACU
--- NOTE | 2025-03-19 07:30 | MHC.SHP ---
Pre-Procedural Eval Section A - 24 Hr Update-Section A only Date of Service: 03/19/25 The patient is an INPATIENT: No The patient has been examined within 24 hours of the surgical procedure. The History & Physical has been completed within 30 days and I have reviewed it.: No Section B - Complete if H&P > 30 days Chief Complaint: Colon cancer screening, GERD Relevant Family History (Specify if Yes): No Relevant Social History: Tobacco Use Present Medications: see Short Stay Collaborative assessment Medical History: Significant History (Enlarged prostate Numbness of left hand Hiatal hernia Alcohol abuse GERD (gastroesophageal reflux disease) Tobacco abuse Obstructive sleep apnea) History of Previous Operations: Relevant previous surgery/procedure and date(s) (History of colonoscopy) Allergies: Allergies Allergy/AdvReac Type Severity Reaction Status Date / Time No Known Allergies (No Known Allergy Verified 01/26/25 13:19 Allergies*) Review of Systems Sugical H&P ROS: Negative: Constitution, Cardiovascular, Respiratory and Gastrointestinal Exam Surgical H&P Exam: Normal: Heart, Normal: Lungs, Normal: Extremities and Normal: Abdomen Plan Diagnosis/Plan: Unchanged I have reviewed the history and physical and performed a pertinent physical examination on my patient. No changes have occurred unless specified. Time Spent With Patient Time: Total time managing care of this patient today ____ minutes.
[2025-03-19 07:41] VITALS: BMI 27.5
[2025-03-19 07:47] VITALS: BP 125/72; PULSE 72; RESP 15; TEMP 36.4; O2SAT 98
[2025-03-19] MEDS: Lactated Ringers 1,000 ML 100 ML IVCONT (07:58)
--- NOTE | 2025-03-19 08:44 | P.OPN-COLO_ITS ---
Colonoscopy Operative Note Operative Note Date of Service: 03/19/25 Narrative: FLEXIBLE TRANSORAL UPPER GASTROINTESTINAL ENDOSCOPY WITH BIOPSIES AND BRUSHINGS AND COLONOSCOPY TILL CECUM WITH BIOPSIES AND SNARE POLYPECTOMY Pre-op diagnosis: Colon cancer screening, GERD Post-op diagnosis: GERD, hiatal hernia, suspected esophageal candidiasis, Gastritis, Colon Polyps, Diverticulosis, hemorrhoids Endoscopist:? Luis Gonzalez MD Anesthesia:?MAC UPPER ENDOSCOPY Consent: Indications for the procedure and potential complications of bleeding, perforation, reaction to medications and missed diagnosis were discussed with the patient and informed consent was obtained. Instrument: Olympus GIF H 190 mid size upper endoscope Monitoring: Vital signs and clinical assessment, continuous EKG monitoring, Pulse oximetry, Carbon Dioxide monitoring and blood pressure monitoring were done throughout the procedure. Procedure: The patient was placed in the left lateral decubitis position and pre-procedure medications were administered and a bite block was placed. The endoscope was inserted into the mouth and advanced under direct vision to the third part of duodenum. A careful inspection was made as the upper endoscope was withdrawn including a retroflexed examination of the proximal stomach; Findings and interventions are described below. Findings: Larynx: Normal Esophagus: GE junction at 40 cms, small hiatal hernia 40 to 42 cms. Scattered yellow/white exudate throughout the esophagus - brushings obtained to check for Allie No Kwong's. Stomach: Moderate diffuse gastric erythema with nodular appearing gastric mucosa - biopsies were obtained from the gastric body and antrum. Grade 2 flap valve on retroflexed examination of the cardia. Duodenum: Normal bulb and descending duodenum Intervention: Biopsies as noted above COLONOSCOPY PROCEDURE NOTE Instrument: Olympus CF H 190 L variable stiffness adult colonoscope Monitoring: Vital signs and clinical assessment, intermittent blood pressure monitoring, continuous EKG monitoring, Pulse oximetry and Carbon Dioxide monitoring were done throughout the procedure. Please see anesthesia flowsheet. Colon withdrawl time was 26 minutes. Procedure: The patient was placed in the left lateral decubitis position and pre-procedure medications were administered. After a digital rectal examination of the ano-rectum, the video colonoscope was inserted into the rectum and advanced through the colon to the cecum. The colonoscope was slowly withdrawn in a retrograde panoramic fashion and the colon mucosa was carefully examined including a retroflexed view of the rectum. Findings and interventions are described below. Procedure Difficulty: without difficulty Findings: Terminal Ileum: Not evaluated Cecum: A 3-4 mm sessile polyp adjacent to the appendicular orifice - removed with a cold biopsy. Ascending Colon: Normal Transverse Colon: Normal Descending Colon: Moderate diverticulosis Sigmoid Colon: A 10-12 mm sessile polyp - removed with a stiff hot snare. Moderate diverticulosis Rectum: Normal Ano-rectum: Moderate internal hemorrhoids Colon preparation: Good after copious irrigation. [place] Bowel Preparation Scale Right colon; 2 Transverse colon: 2 Left colon; 2 (0 = Unprepared colon segment with mucosa not seen due to solid stool that cannot be cleared. 1 = Portion of mucosa of the colon segment seen, but other areas of the colon segment not well seen due to staining, residual stool and/or opaque liquid. 2 = Minor amount of residual staining, small fragments of stool and/or opaque liquid, but mucosa of colon segment seen well. 3 = Entire mucosa of colon segment seen well with no residual staining, small fragments of stool or opaque liquid) Impression and Post Procedure Diagnosis: Endoscopy Findings: ESOPHAGUS: Small hiatal hernia. Scattered yellow/white exudate throughout the esophagus - brushings obtained to check for Allie STOMACH: Diffuse gastritis DUODENUM: Normal Colonoscopy Findings: Two small to medium sized polyps were removed Moderate diverticulosis seen in the left colon Moderate hemorrhoids on retroflexed exam. Plan: Pt has a FU appointment on 04/09/25 with Luann Nguyen NP Repeat Colonoscopy in 3-5 years if polyps are adenomatous and 10 year if polyps are hyperplastic. A summary of above findings and relevant handouts were given to the patient. BIOPSIES SHOWED: A. Stomach, antrum, biopsy: Antral-type mucosa with mild chronic inactive inflammation; no Helicobacter organisms seen. B. Stomach, body, biopsy: Oxyntic mucosa with mild chronic inactive inflam mation; no Helicobacter organisms seen. C. Cecum, polypectomy: Colonic mucosa with mild surface hyperplastic changes. D. Colon, sigmoid, polypectomy: Tubular adenoma; negative for high-grade dysplasia or carcinoma. Letter sent to the patient with biopsy results. Patient was placed on the colonoscopy recall list for repeat colonoscopy 3 years.
[2025-03-19 09:25] VITALS: BP 96/56; PULSE 68; RESP 19; TEMP 36.7; O2SAT 96
[2025-03-19 09:40] VITALS: BP 116/72; PULSE 63; RESP 16; TEMP 36.5; O2SAT 98
== END 2025-03-19 10:23 | disposition home or self-care (01) ==
PROVIDERS: PCP Internal Medicine; Visit Provider Internal Medicine Gastroenterology
PROC: (CPT 45385; principal; 2025-03-19 08:30)
DX: Z12.11 Encounter for screening for malignant neoplasm of colon (principal); D12.5 Benign neoplasm of sigmoid colon; K57.30 Diverticulosis of large intestine without perforation or abscess without bleeding; K64.8 Other hemorrhoids; K21.9 Gastro-esophageal reflux disease without esophagitis; B37.81 Candidal esophagitis; K29.60 Other gastritis without bleeding; K44.9 Diaphragmatic hernia without obstruction or gangrene; E78.00 Pure hypercholesterolemia, unspecified; K83.8 Other specified diseases of biliary tract; F10.10 Alcohol abuse, uncomplicated; K76.0 Fatty (change of) liver, not elsewhere classified; N40.0 Benign prostatic hyperplasia without lower urinary tract symptoms; G47.33 Obstructive sleep apnea (adult) (pediatric); Z99.89 Dependence on other enabling machines and devices; F17.210 Nicotine dependence, cigarettes, uncomplicated; Z79.899 Other long term (current) drug therapy
CPT/HCPCS: 45385; 45380; 43239; 87102; 87106; 88305; 88313; 88342; J2003; J2704; J3010

== ENCOUNTER → 2025-03-19 07:32 | Outpatient (BNV) | payer OTHER, SELFPAY | PROVIDERS: PCP Internal Medicine; Visit Provider Internal Medicine Gastroenterology | DX: Z12.11 Encounter for screening for malignant neoplasm of colon (principal); D12.0 Benign neoplasm of cecum; K57.90 Diverticulosis of intestine, part unspecified, without perforation or abscess without bleeding; K64.8 Other hemorrhoids; D12.5 Benign neoplasm of sigmoid colon; K21.9 Gastro-esophageal reflux disease without esophagitis; K22.89 Other specified disease of esophagus; K29.70 Gastritis, unspecified, without bleeding | CPT/HCPCS: 43239; 45380; 45385 ==

== ENCOUNTER 2025-03-26 09:29 | Outpatient (AMB) | payer OTHER, SELFPAY ==
--- NOTE | 2025-03-26 09:31 | MHC.OFFVIS ---
Intake Visit Reasons: 6 month follow up/ PVR Intake Note: Patient is present for 6M/PVR Urology Medication:FINASTERIDE,TERAZOSIN Antibiotic Allergy:NONE Blood Thinner:NONE TODAY'S PVR:0ML'S Fruit Tester Required: No Allergies No Known Allergies (No Known Allergies*) Allergy (Verified 03/26/25 09:32) HPI Comments Details: Surendra is a 59-year-old male patient of Dr. Arellano. He has a past medical history of hiatal hernia, alcohol abuse, GERD, tobacco abuse, and obstructive sleep apnea. He presents to the office today for follow-up of his bladder wall thickening and enlarged prostate. In discussion with the patient today he reports noting over the last 2-3 months he has been experiencing episodes of nocturia up to 6 times per night. He reports having followed up with his PCP and recommendations were made for follow-up with Urology for further assessment evaluation. He reports having had RUFINO with PCP and being told everything was within normal limits. He reports he attempts to be compliant with terazosin and finasteride as prescribed however more often times than not is noncompliant. Recent PSA results were reviewed with the patient today. We discussed bump in PSA in the last year. RUFINO was offered however deferred. Previous workup has included a bladder ultrasound 5-24 noting mild diffuse thickening and irregularity of the bladder wall with possible trabeculations. Mild low level internal echoes characteristic of debris within the bladder. Enlarged prostate volume of 42 mL. Per radiology report correlation with clinical exam urology consultation is recommended to determine further management including possible direct visualization with cystoscopy. In office urinalysis results reviewed with the patient today. PVR 0 mL. He does feel improvement in weak urinary stream he had been experiencing however feels most bothersome urinary issue is nocturia. He does have a history of sleep apnea and does report compliance in CPAP. We did discussed correlation of sleep apnea and nocturia. He otherwise denies urinary urgency, urinary frequency, incontinence, hematuria, dysuria, foul smelling urine, flank pain, fever, and or chills. PSA are as follows: PSAs: 11/22 2.4, 04/26 2.4, 10/29 1.8, 02/27 1.9, 05/30 1.9, 01/28 3.8 We discussed potential causes of increase in PSA as well as further treatment options and risks and benefits of these treatment options. He does feel terazosin causes him dizziness at times. He has previously trialed Flomax and did not find this helpful. We discuss trial of alfuzosin as well as potential near future in office cystoscopy for further assessment evaluation. All questions were answered. He otherwise offers no other issues or concerns at this time. [facility] Medical History Fatty liver Elevated ferritin level Anemia Anxiety and depression Obesity (BMI 30.0-34.9) Weak urinary stream Bladder trabeculation Enlarged prostate Numbness of left hand Hiatal hernia Alcohol abuse GERD (gastroesophageal reflux disease) Tobacco abuse Obstructive sleep apnea Surgical History History of esophagogastroduodenoscopy (EGD) H/O colonoscopy Family History Father Alcohol abuse Mother Liver cancer Brother No problems noted. Brother Heart attack Sister Breast cancer Sister No problems noted. Sister No problems noted. Daughter No problems noted. Son No problems noted. Other Cancer Social History Housing: Apartment Alcohol intake: current Alcohol intake frequency: former alcohol drinker Alcohol type: hard liquor Comment: stopped 08/2023(told 12/2023), stopped 11/2024 Patient Tobacco Use Status: Current everyday Tobacco user Tobacco use type: Cigarette Cigarette Packs Per Day: 10 Cigarettes Per Day: 14 Years Smoked: pack Q 2 days e-Cigarette/Vaping Use: Never Used Second Hand Smoke Exposure: Yes service: No Current occupational status: unemployed Cognitive needs: No Hearing needs: No Vision needs: Yes (Glasses) Review of Systems Eyes Reports no additional complaints ENT Reports no additional complaints Card Reports as per HPI Resp Reports as per HPI GI Reports no additional complaints Reports as per HPI Musc Reports no additional complaints Neuro Reports no additional complaints Psych Reports as per HPI Endo Reports no additional complaints Keith/Lymph Reports no additional complaints Aller/Immun Reports no additional complaints Physical Exam Const General: cooperative, healthy appearing, comfortable, no acute distress, well developed, alert and awake Nutritional Appearance: overweight Orientation/consciousness: patient oriented x3 Limitations: no limitations HEENT Head: Yes normal to inspection, Yes normocephalic and Yes atraumatic Ears: hearing grossly normal bilaterally Eyes General: appearance normal, both eyes and all related structures Neck Neck: Yes normal visual inspection and Yes trachea midline Chest Chest palpation & inspection: normal inspection of the chest Resp Effort & Inspection: normal respiratory effort and able to speak in complete sentences Cardio Rate: regular rate GI Inspection: Yes normal to inspection General: Yes no CVA tenderness Back/Spine/Pelvis Back: no CVA tenderness Skin General skin exam: no rashes or lesions noted Neuro General: patient oriented x3 Extrem General: Yes normal to inspection Psych Appearance: grossly normal and well kempt Mental Status: mental status grossly normal Speech and movement: Normal speech and movement present and Clear speech present Affect: normal affect Attitude: cooperative Thought process: Normal thought process present Thought content: Normal thought content present Insight: Fair insight present (Psych) Judgement: Fair judgement present (Psych) Office Procedures Post Void Residual Post Residual Void Post Void Residual (PVR): 0 [id number]-[id number] Void Residual by ultrasound Results AMB Urinalysis, Automated UA Leukoctes 0 Niurka/uL Last Edit by STEPHANIE Kaur on 03/26/25 09:49 UA Nitrite Negative Last Edit by STEPHANIE Kaur on 03/26/25 09:49 UA Urobilinogen 0.2 mg/dL Last Edit by STEPHANIE Kaur on 03/26/25 09:49 UA Protein 0 mg/dL Last Edit by STEPHANIE Kuar on 03/26/25 09:49 UA pH 6.5 Last Edit by STEPHANIE Kaur on 03/26/25 09:49 UA Blood 0 Eladio/uL Last Edit by STEPHANIE Kaur on 03/26/25 09:49 UA Specific [place] 1.015 Last Edit by STEPHANIE Kaur on 03/26/25 09:49 UA Ketone Negative Last Edit by STEPHANIE Kaur on 03/26/25 09:49 UA Bilirubin 0 mg/dL Last Edit by STEPHANIE Kaur on 03/26/25 09:49 UA Glucose 0 mg/dL Last Edit by STEPHANIE Kaur on 03/26/25 09:49 Results Reviewed Results Reviewed: Laboratory Last Values Urine pH (Auto) 6.5 03/26/25 09:35 Specific [place] (Auto) 1.015 03/26/25 09:35 Urine Protein (Auto) 0 mg/dL 03/26/25 09:35 Glucose (UA)(Auto) 0 mg/dL 03/26/25 09:35 Urine Ketones (Auto) Negative 03/26/25 09:35 Urine Blood (Auto) 0 Eladio/uL 03/26/25 09:35 Urine Nitrite (Auto) Negative 03/26/25 09:35 Urine Bilirubin (Auto) 0 mg/dL 03/26/25 09:35 Urine Urobilinogen (Auto) 0.2 mg/dL 03/26/25 09:35 Leukocyte Esterase (Auto) 0 Niurka/uL 03/26/25 09:35 Assessment & Plan Assessment & Plan (1) Bladder wall thickening: Code(s): N32.89 - Other specified disorders of bladder Category: Medical (2) BPH (benign prostatic hyperplasia): Code(s): N40.0 - Benign prostatic hyperplasia without lower urinary tract symptoms Category: Medical Qualifiers: Lower urinary tract symptom presence: symptoms present Lower urinary tract symptom detail: weak urinary stream Qualified Code(s): N40.1 - Benign prostatic hyperplasia with lower urinary tract symptoms; R39.12 - Poor urinary stream (3) Nocturia: Code(s): R35.1 - Nocturia Category: Medical Plan In office urinalysis results reviewed with the patient today; as noted above. PVR 0 mL. Stop terazosin. Start alfuzosin as discussed and prescribed. We did discussed potential causes of increase in PSA over the last year; we discussed further treatment options and risks and benefits of these treatment options. All questions were answered. We discussed the importance of compliance in CPAP. We discussed the importance of limiting fluids 2-3 hours prior to bed to decrease episodes of nocturia. RUFINO was offered however deferred. Start bactrim as discussed and prescribed. Follow-up in 2-3 months with PSA; or sooner with any issues, concerns, and or questions. Orders: Orders Prostate Specific Antigen 6 Weeks N40.1 - Benign prostatic hyperplasia with lower urinary tract symptoms, R39.12 - Poor urinary stream AMB Urinalysis Automated Today Z13.9 - Encounter for screening, unspecified Medications: New sulfamethoxazole-trimethoprim 800-160 mg (Bactrim DS) 1 tab PO BID 28 tabs 0RF 14 days N39.0 - Urinary tract infection, site not specified alfuzosin ER Take before bedtime 10 mg PO BEDTIME 30 tabs 1RF 30 days N32.0 - Bladder-neck obstruction, N40.1 - Benign prostatic hyperplasia with lower urinary tract symptoms, R33.9 - Retention of urine, unspecified, R35.1 - Nocturia, R39.12 - Poor urinary stream Patient Instructions: The patient had an opportunity to ask questions regarding the treatment plan. All questions were answered. Physical exam, labs, and imaging were discussed and reviewed in detail. As well as risks, benefits, and discussion of treatment choices. No major barriers to understanding were identified. The patient expressed understanding and agreement with the above treatment plan. The patient was made aware they should contact our office by phone for worsening of their current condition, the appearance of new symptoms, or with any questions or concerns. Compliance is encouraged with any medications and follow up testing that is ordered. It is a privilege to be allowed the opportunity to participate in? your urological care.? Again, if you have any questions or concerns If you have any questions or concerns please do not hesitate to contact me. The office is [phone]. This note is constructed using voice recognition software. While every effort has been made to ensure accuracy electric power machine operator errors may have been included. Yours sincerely, DYLLAN Claros Coding Level of Care Code Est Pt Level 4 (57475) Complex EM visit Add On G2211 Diagnoses Bladder wall thickening N32.89 Benign prostatic hyperplasia with weak urinary stream N40.1; R39.12 Lower urinary tract symptom presence: symptoms present Lower urinary tract symptom detail: weak urinary stream Nocturia R35.1 CPT Codes Post Residual Void - PVR CPT Code: 67381-Vaxn Void Residual by ultrasound ([id number])
--- OUTSIDE RECORDS SUMMARY | 2025-03-26 10:00 | XMS_ITS | Clinical Summary ---
Author Organization [employer] Address [address] [facility] [address] [place] [address] Care Team Providers Care Tire Wrapper Name Role Phone Unavailable Primary Care Provider [...] Description 05/10/2025 3:00 PM EDT Office Visit [facility] [address] [place] [address] Yury, Nicole [address] [place] [address] Health Maintenance Due Date Last Done Comments [...] Vaccines (1 of 2) 2015 COVID-19 Vaccine (2023- season) 2024 Dental Oral Exam 11/22/2024 05/24/2024, , 11/30/2018, Additional history exists Dental Prophylaxis 11/22/2024 05/24/2024 Influenza Vaccine (#1) 2025 08/23/2024, 2021 Tobacco Screening 05/24/2025 05/24/2024 Dental X-Ray: Bitewings 05/25/2025 05/24/20 24, 06/01/2023, 04/30/2022, Additional history exists Dental X-Ray: Full Mouth 06/02/2026 023, 01/21/2022, 02/18/2018 RSV Patients and Patients Aged 60 years or older (1 - 1-dose 75+ series) 2040 Pneumococcal Vaccine: 50+ Years Completed 12/27/2023 HIB Vaccines Aged Out No longer eligi [...] Most Recently Relevant to Health Maintenance [facility] Advance Directives Documents on File Type Date Recorded 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
== END 2025-03-26 10:24 | disposition home or self-care (01) ==
LOC: HO.HUSH 09:30
PROVIDERS: PCP Internal Medicine; Visit Provider Nurse Practitioner Family
DX: N32.89 Other specified disorders of bladder (principal); N40.1 Benign prostatic hyperplasia with lower urinary tract symptoms; R39.12 Poor urinary stream; R35.1 Nocturia; Z13.9 Encounter for screening, unspecified
CPT/HCPCS: 99214; G2211

== ENCOUNTER → 2025-03-26 09:29 | Outpatient (BNVA) | payer OTHER, SELFPAY | PROVIDERS: PCP Internal Medicine; Visit Provider Nurse Practitioner Family | DX: N40.1 Benign prostatic hyperplasia with lower urinary tract symptoms (principal); R35.1 Nocturia; N32.89 Other specified disorders of bladder; R39.12 Poor urinary stream | CPT/HCPCS: 51798; 81003; 99212 ==

== ENCOUNTER 2025-04-09 13:52 | Outpatient (AMB) | payer OTHER, SELFPAY ==
--- NOTE | 2025-04-09 13:55 | A.OFFVIS_ITS ---
Vital Signs 04/09/25 14:01 Height 5 ft 7 in Weight 178 lb BMI 27.9 BP 126/70 Blood Pressure Location Rt brachial Position Sitting Pulse 72 Pulse Source Pulse Oximeter Pulse Oximetry (%) 98 Oxygen Delivery Method Room Air Intake Visit Reasons: S/P Double; Dr. Gonzalez Intake Note: Est pt for mgmt of GERD. S/P Double. CC: Pt denies any GI sx or concerns at this time. Confirms that his Rx are still working as intended. 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 Gonzalez: Details: LAST VISIT: GERD (gastroesophageal reflux disease) Fatty liver Screen for colon cancer Plan Patient denies any GI, cardiac or respiratory symptoms.? Occasional acid reflux and constipation. Discussed with patient avoiding dietary triggers in late night snacking. Staying upright for minimum 3 hours after meals discussed with patient. Patient will be sent for upper endoscopy is well. Denies any issues with anesthesia in the past.? History of sleep apnea.? No history infectious diseases in the past or present.? Not on any anticoagulation therapy.? No family or personal history of colon cancer or polyps.? Patient denies melena, hematochezia, unintentional weight loss or ribbon like stools.? Discussed at length the pre-procedure,? prep, diet & medications as well as what to expect prior, during and after the procedure.?? Stressed the importance of good bowel prep.? Recommended the use of Vaseline or Calmoseptine OTC & baby wipes with bowel movements to promote comfort.? ?Patient verbalizes understanding and agrees to plan of care.? He was given the opportunity to ask questions and all questions answered.? We will see him after the procedure.? New bisacodyl (Dulcolax (bisacodyl)) 10 mg (2 x 5 mg) PO BEDTIME 180 tabs 4RF polyethylene glycol 3350 (Miralax) As directed by gastroenterology department at [facility] 238 grams PO ONCE 238 grams 0RF Z12.11 UPPER ENDOSCOPY AND COLONOSCOPY Findings: Larynx: Normal Esophagus: GE junction at 40 cms, small hiatal hernia 40 to 42 cms. Scattered yellow/white exudate throughout the esophagus - brushings obtained to check for Allie No Kwong's. Stomach: Moderate diffuse gastric erythema with nodular appearing gastric mucosa - biopsies were obtained from the gastric body and antrum. Grade 2 flap valve on retroflexed examination of the cardia. Duodenum: Normal bulb and descending duodenum Intervention: Biopsies as noted above COLONOSCOPY PROCEDURE NOTE Instrument: Olympus CF H 190 L variable stiffness adult colonoscope Monitoring: Vital signs and clinical assessment, intermittent blood pressure monitoring, continuous EKG monitoring, Pulse oximetry and Carbon Dioxide monitoring were done throughout the procedure. Please see anesthesia flowsheet. Colon withdrawl time was 26 minutes. Procedure: The patient was placed in the left lateral decubitis position and pre-procedure medications were administered. After a digital rectal examination of the ano-rectum, the video colonoscope was inserted into the rectum and advanced through the colon to the cecum. The colonoscope was slowly withdrawn in a retrograde panoramic fashion and the colon mucosa was carefully examined including a retroflexed view of the rectum. Findings and interventions are described below. Procedure Difficulty: without difficulty Findings: Terminal Ileum: Not evaluated Cecum: A 3-4 mm sessile polyp adjacent to the appendicular orifice - removed with a cold biopsy. Ascending Colon: Normal Transverse Colon: Normal Descending Colon: Moderate diverticulosis Sigmoid Colon: A 10-12 mm sessile polyp - removed with a stiff hot snare. Moderate diverticulosis Rectum: Normal Ano-rectum: Moderate internal hemorrhoids Colon preparation: Good after copious irrigation. Cheraw Bowel Preparation Scale Right colon; 2 Transverse colon: 2 Left colon; 2 (0 = Unprepared colon segment with mucosa not seen due to solid stool that cannot be cleared. 1 = Portion of mucosa of the colon segment seen, but other areas of the colon segment not well seen due to staining, residual stool and/or opaque liquid. 2 = Minor amount of residual staining, small fragments of stool and/or opaque liquid, but mucosa of colon segment seen well. 3 = Entire mucosa of colon segment seen well with no residual staining, small fragments of stool or opaque liquid) Impression and Post Procedure Diagnosis: Endoscopy Findings: ESOPHAGUS: Small hiatal hernia. Scattered yellow/white exudate throughout the esophagus - brushings obtained to check for Allie STOMACH: Diffuse gastritis DUODENUM: Normal Colonoscopy Findings: Two small to medium sized polyps were removed Moderate diverticulosis seen in the left colon Moderate hemorrhoids on retroflexed exam. Plan: Repeat Colonoscopy in 3-5 years if polyps are adenomatous and 10 year if polyps are hyperplastic. A summary of above findings and relevant handouts were given to the patient. BIOPSIES SHOWED: A. Stomach, antrum, biopsy: Antral-type mucosa with mild chronic inactive inflammation; no Helicobacter organisms seen. B. Stomach, body, biopsy: Oxyntic mucosa with mild chronic inactive inflammation ; no Helicobacter organisms seen. C. Cecum, polypectomy: Colonic mucosa with mild surface hyperplastic changes. D. Colon, sigmoid, polypectomy: Tubular adenoma; negative for high-grade dysplasia or carcinoma. Letter sent to the patient with biopsy results. Patient was placed on the colonoscopy recall list for repeat colonoscopy 3 years. TODAY'S VISIT Patient is here today for follow-up and to discuss upper endoscopy in colonoscopy results. Patient denies any ill effects from the prep, anesthesia or procedure itself. Patient continues to have acid reflux when he eats spicy or greasy food. Sometimes he eats late at night. Reports epigastric pain occasionally. Currently he is on omeprazole daily. Reports improvement while taking the medication. Without omeprazole patient reports severe acid reflux. Patient reports constipation, occasional blood after a bowel movement. Script for Dulcolax was prescribed for patient, patient reports that he has not taking it. Patient denies melena. One tubular adenoma found without high-grade dysplasia or carcinoma and recommendation was made patient to return in 3 years. [facility] Medical History (Updated 04/09/25 @ 14:18 by Fawn Nguyen, SEMICONDUCTOR PACKAGES LEAK TESTER-) Tubular adenoma of colon Fatty liver Elevated ferritin level Anemia Anxiety and depression Obesity (BMI 30.0-34.9) Weak urinary stream Bladder trabeculation Enlarged prostate Numbness of left hand Hiatal hernia Alcohol abuse GERD (gastroesophageal reflux disease) Tobacco abuse Obstructive sleep apnea Surgical History History of esophagogastroduodenoscopy (EGD) H/O colonoscopy Family History Father Alcohol abuse Mother Liver cancer Brother No problems noted. Brother Heart attack Sister Breast cancer Sister No problems noted. Sister No problems noted. Daughter No problems noted. Son No problems noted. Other Cancer Social History Housing: Apartment Alcohol intake: current Alcohol intake frequency: former alcohol drinker Alcohol type: hard liquor Comment: stopped 08/2023(told 12/2023), stopped 11/2024 Patient Tobacco Use Status: Current everyday Tobacco user Tobacco use type: Cigarette Cigarette Packs Per Day: 10 Cigarettes Per Day: 14 Years Smoked: pack Q 2 days e-Cigarette/Vaping Use: Never Used Second Hand Smoke Exposure: Yes service: No Current occupational status: unemployed Cognitive needs: No Hearing needs: No Vision needs: Yes (Glasses) Review of Systems Const Denies weight gain and Denies weight loss ENT Reports no additional complaints, Reports dysphagia (Occasional) and Denies odynophagia Card Reports no additional complaints Resp Reports no additional complaints GI Denies abdominal pain, Denies belching, Denies melena, Denies bloating, Denies change in bowel habits, Reports constipation (Occasional), Reports dysphagia (Occasional), Denies excessive flatus, Denies dyspepsia, Reports heartburn (Occasional), Denies diarrhea, Denies loose stools, Denies nausea, Denies odynophagia and Denies vomiting Reports no additional complaints Musc Reports no additional complaints Neuro Reports no additional complaints Psych Reports no additional complaints Endo Reports no additional complaints Physical Exam Const General: healthy appearing, no acute distress and well developed Nutritional Appearance: well nourished Orientation/consciousness: patient oriented x3 Resp Effort & Inspection: normal respiratory effort, able to speak in complete sentences, no tracheal deviation and symmetric chest movement Auscultation: clear to auscultation bilaterally Cardio Rate: regular rate GI Inspection: Yes normal to inspection and No distended Palpation (GI): Soft to palpation, not firm, nontender and No hepatosplenomegaly present Auscultation: normal bowel sounds General: Yes no CVA tenderness Back/Spine/Pelvis Back: no CVA tenderness Skin General skin exam: elasticity normal, turgor normal and dry skin Neuro General: patient oriented x3 Psych Appearance: grossly normal Mental Status: mental status grossly normal Thought content: Normal thought content present Assessment & Plan Assessment & Plan (1) GERD (gastroesophageal reflux disease): Code(s): K21.9 - Gastro-esophageal reflux disease without esophagitis Category: Medical Qualifiers: Esophagitis presence: without esophagitis Qualified Code(s): K21.9 - Gastro-esophageal reflux disease without esophagitis (2) Fatty liver: Code(s): K76.0 - Fatty (change of) liver, not elsewhere classified Category: Medical (3) Constipation: Code(s): K59.00 - Constipation, unspecified Category: Medical Qualifiers: Constipation type: unspecified constipation type Qualified Code(s): K59.00 - Constipation, unspecified (4) Hemorrhoid: Code(s): K64.9 - Unspecified hemorrhoids Qualifiers: Hemorrhoid type: unspecified Qualified Code(s): K64.9 - Unspecified hemorrhoids (5) Tubular adenoma of colon: Code(s): D12.6 - Benign neoplasm of colon, unspecified Category: Medical (6) Status post colonoscopy: Code(s): Z98.890 - Other specified postprocedural states Plan Patient can continue taking omeprazole. Discussed with patient avoiding dietary triggers and late night snacking. Staying upright for minimal sales after meals discussed with patient. Patient will take famotidine at bedtime. Patient was encouraged to increase fluid intake and activity to promote better bowel motility. Patient will take Dulcolax daily to help him with bowel movements. Follow-up in the office in 4 months, sooner on as needed basis. Colonoscopy in 3 years, sooner if clinically necessary. Patient is agreeable to current plan of care and verbalizes understanding of instructions. He was given the opportunity to ask questions and all questions answered. Thank you for allowing me to participate in his care Medications: New hydrocortisone 2.5% (Proctosol HC) 1 appl UT BID-QID PRN 30 grams 2RF hemorrhoids K64.9 - Unspecified hemorrhoids famotidine (Pepcid) 20 mg PO BEDTIME 30 tabs 3RF K21.9 - Gastro-esophageal reflux disease without esophagitis Coding Level of Care Code Est Pt Level 4 (69312) Complex EM visit Add On G2211 Diagnoses Gastroesophageal reflux disease without esophagitis K21.9 Esophagitis presence: without esophagitis Fatty liver K76.0 Constipation, unspecified constipation type K59.00 Constipation type: unspecified constipation type Hemorrhoids, unspecified hemorrhoid type K64.9 Hemorrhoid type: unspecified Tubular adenoma of colon D12.6 Status post colonoscopy Z98.890 Time Spent (min) 35 Comment 25 minutes spent with patient and additional 10 minutes spent reviewing his records
[2025-04-09 14:01] VITALS: BP 126/70; PULSE 72; O2SAT 98; BMI 27.9
--- OUTSIDE RECORDS SUMMARY | 2025-04-09 14:05 | XMS_ITS | Clinical Summary ---
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
== END 2025-04-09 14:21 | disposition home or self-care (01) ==
LOC: HO.HGI 13:53
PROVIDERS: PCP Internal Medicine; Visit Provider Nurse Practitioner Family
DX: K21.9 Gastro-esophageal reflux disease without esophagitis (principal); K76.0 Fatty (change of) liver, not elsewhere classified; K59.00 Constipation, unspecified; K64.9 Unspecified hemorrhoids; D12.6 Benign neoplasm of colon, unspecified; Z98.890 Other specified postprocedural states
CPT/HCPCS: 99214

== ENCOUNTER → 2025-04-09 13:52 | Outpatient (BNVA) | payer OTHER, SELFPAY | PROVIDERS: PCP Internal Medicine; Visit Provider Nurse Practitioner Family | DX: Z71.2 Person consulting for explanation of examination or test findings (principal); K21.9 Gastro-esophageal reflux disease without esophagitis; K76.0 Fatty (change of) liver, not elsewhere classified; K59.00 Constipation, unspecified; K64.9 Unspecified hemorrhoids; D12.6 Benign neoplasm of colon, unspecified; Z98.890 Other specified postprocedural states | CPT/HCPCS: 99212 ==

== ENCOUNTER 2025-04-24 10:27 | Outpatient (AMB) | payer OTHER, SELFPAY ==
--- NOTE | 2025-04-24 10:29 | A.OFFVIS_ITS ---
Vital Signs 04/24/25 10:31 Height 5 ft 7 in Weight 180 lb 4 oz BMI 28.2 BP 124/70 Blood Pressure Location Rt brachial Position Sitting Pulse 91 Pulse Source Pulse Oximeter Pulse Oximetry (%) 95 Oxygen Delivery Method Room Air Intake Visit Reasons: Follow Up 3m Intake Note: Patient presents follow up RAJESH medication. Compliance in chart(89/90 days, >=4hrs-97%, Average usage-6hrs 46min, Med Pressure-14.0, Med Leaks-4.0, AHI- 0.3). Accompanied by: Self / Same As Patient Allergies No Known Allergies (No Known Allergies*) Allergy (Verified 04/24/25 10:34) HPI Comments Details: 59 y/o male with RAJESH present for a f/u visit for overnight pulse oximetry report. RAJESH compliance report 01/2025-04/2025 Total use Avg >4hours and 97% Avg daily use 6hours and 46 min. Press [id number] median press 14.0 median leaks 4.0median AHI is 0.3 Pulse oximetry is completed he is below 88% of oxygen for 24min, will refer to pulmonology for evaluation and treatment. He is a current smoker of cigarettes 1/2 pack to 1 pack per day and trying to taper. He says he was started on a 5 day cours of abx 2 weeks ago for prostatitis and broke out into a rash on the 5th day of treatment. He can not remember the name of the abx, however he had a s/e with painful, burning itchy-hive like rash all over the arms, legs torso, and abdomen. He sleeps better with the cpap machine and notices the mask is more comfortable now, he had a mask fitting. After the last visit, his pressures were changed to vary from [id number], however he still feels the air is not comfortable. He notes that his previous machine had different heat and humidity settings, but he does not know how to adjust this on his machine. Review of his recent compliance report shows good reduction in residual AHI and his pressures are 14- 77ioB50. His mood is irritable, and he sees his pscyhiatrist as needed every 3 months, managed on Sertraline, he declines a medication adjustment today. He says he is trying to taper off of his cigarettes, and he has been sober for over 6 months now. He denies RLS symptoms, but wakes up at night with muscle spasms occasionally. Reviewed labs and reminded patient to continue vitamin D daily. He washes his mask, rinses his hoses, changes the filter and fills reservoir with water daily. [facility] Medical History Tubular adenoma of colon Fatty liver Elevated ferritin level Anemia Anxiety and depression Obesity (BMI 30.0-34.9) Weak urinary stream Bladder trabeculation Enlarged prostate Numbness of left hand Hiatal hernia Alcohol abuse GERD (gastroesophageal reflux disease) Tobacco abuse Obstructive sleep apnea Surgical History History of esophagogastroduodenoscopy (EGD) H/O colonoscopy Family History Father Alcohol abuse Mother Liver cancer Brother No problems noted. Brother Heart attack Sister Breast cancer Sister No problems noted. Sister No problems noted. Daughter No problems noted. Son No problems noted. Other Cancer Social History Housing: Apartment Alcohol intake: current Alcohol intake frequency: former alcohol drinker Alcohol type: hard liquor Comment: stopped 08/2023(told 12/2023), stopped 11/2024 Patient Tobacco Use Status: Current everyday Tobacco user Tobacco use type: Cigarette Cigarette Packs Per Day: 10 Cigarettes Per Day: 14 Years Smoked: pack Q 2 days e-Cigarette/Vaping Use: Never Used Second Hand Smoke Exposure: Yes service: No Current occupational status: unemployed Cognitive needs: No Hearing needs: No Vision needs: Yes (Glasses) Physical Exam Vital Signs: Last Vital Signs Pulse 91 04/24/25 10:31 BP 124/70 04/24/25 10:31 Pulse Ox 95 04/24/25 10:31 Oxygen Delivery Method Room Air 04/24/25 10:31 BMI result Body Mass Index 28.2 Const General: cooperative, comfortable and no acute distress Orientation/consciousness: patient oriented x3 HEENT Face and sinus: Yes face symmetric Eyes Pupils: Equal, round and reactive pupils present Neck Neck: Yes full ROM Resp Effort & Inspection: normal respiratory effort and able to speak in complete sentences Neuro General: patient oriented x3 and moves all extremities Cranial nerves: Yes Equal, round and reactive pupils present, Yes Normal accommodation reflex present, Yes Normal facial strength present, Yes Midline tongue present, Yes Ability to bilaterally rotate head present and Yes Ability to bilaterally elevate shoulders present Motor exam (neuro): 5/5 motor strength present throughout and Normal motor muscle tone present throughout Assessment & Plan Assessment & Plan (1) RAJESH on CPAP: Code(s): G47.33 - Obstructive sleep apnea (adult) (pediatric) Category: Medical (2) Obstructive sleep apnea: Comment: Moderately severe degree of sleep apnea. The AHI was 28/hr and oxygen rhonda was 75 %. CPAP Code(s): G47.33 - Obstructive sleep apnea (adult) (pediatric) Category: Medical (3) Abnormal pulse oximetry: Code(s): R79.81 - Abnormal blood-gas level Category: Medical (4) Hypoxemia associated with sleep: Code(s): G47.36 - Sleep related hypoventilation in conditions classified elsewhere Category: Medical (5) Alcohol abuse: Code(s): F10.10 - Alcohol abuse, uncomplicated Category: Social Hx (6) Muscle cramps at night: Code(s): R25.2 - Cramp and spasm Category: Medical Plan Continue AutoPAP 14-20 cmH2O w/ EPR 2 and compliance of more than 4 hours daily at night. Patient would like to adjust his temp setting and humidity, I re-emphazied do not change the setting, let the sleep company make the adjustments for you as these setting can affect your quality of sleep. Pulse oximetry is abnormal with desaturation, and smoker refer to Pulmonology for PFT and evaluation. Smoking cessation is available if and when you are ready to set a goal and date. Labs reviewed with patient follow-up in clinic in 6 months or sooner prn. Orders: Orders PFT pulmonary function test Today G47.33 - Obstructive sleep apnea (adult) (pediatric), R79.81 - Abnormal blood-gas level Patient Instructions: Sleep Hygiene provided: set a scheduled bedtime and wake time to help regulate the circadian rhythm and balance the release of pituitary hormones. Sleep in a dark room, temperatures below 68 degrees, and no devices n bed. Limit caffeinated products 6 hours prior to bed, and limit fluids 2-4 hours prior to bed. Gentle night yoga, diffusing essential oils, and playing soft music can be relaxing. Coding Level of Care Code Est Pt Level 4 (27128) Diagnoses RAJESH on CPAP G47.33 Obstructive sleep apnea G47.33 Abnormal pulse oximetry R79.81 Hypoxemia associated with sleep G47.36 Alcohol abuse F10.10 Muscle cramps at night R25.2
[2025-04-24 10:31] VITALS: BP 124/70; PULSE 91; O2SAT 95; BMI 28.2
--- OUTSIDE RECORDS SUMMARY | 2025-04-24 11:48 | XMS_ITS | Clinical Summary ---
Author Organization [employer] Address [address] [facility] [address] [place] [address] Care Team Providers Care Freight Booker Name Role Phone Unavailable Primary Care Provider [...] Description 05/10/2025 3:00 PM EDT Office Visit 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
== END 2025-04-24 11:11 | disposition home or self-care (01) ==
LOC: HO.HSMS 10:28
PROVIDERS: PCP Internal Medicine; Visit Provider Physician Assistant Medical
DX: G47.33 Obstructive sleep apnea (adult) (pediatric) (principal); R79.81 Abnormal blood-gas level; G47.36 Sleep related hypoventilation in conditions classified elsewhere; F10.10 Alcohol abuse, uncomplicated; R25.2 Cramp and spasm
CPT/HCPCS: 99214

== ENCOUNTER → 2025-04-24 10:27 | Outpatient (BNVA) | payer OTHER, SELFPAY | PROVIDERS: PCP Internal Medicine; Visit Provider Physician Assistant Medical | DX: G47.33 Obstructive sleep apnea (adult) (pediatric) (principal); R79.81 Abnormal blood-gas level; G47.36 Sleep related hypoventilation in conditions classified elsewhere; F10.10 Alcohol abuse, uncomplicated; R25.2 Cramp and spasm | CPT/HCPCS: 99212 ==

== ENCOUNTER 2025-05-10 08:19 | Outpatient (AMB) | payer OTHER, SELFPAY ==
[2025-05-10 08:40] VITALS: BP 112/68; PULSE 74; O2SAT 99; BMI 27.9
--- NOTE | 2025-05-10 08:40 | MHC.PC.OV ---
Vital Signs 05/10/25 08:40 Height 5 ft 7 in Weight 178 lb BMI 27.9 BP 112/68 Blood Pressure Location Lt brachial Position Sitting Pulse 74 Pulse Source Pulse Oximeter Pulse Oximetry (%) 99 Oxygen Delivery Method Room Air Intake Visit Reasons: BPH Allergies sulfamethoxazole (From Sulfamethoxazole-Trimethoprim) Allergy (Severe, Verified 05/10/25 08:53) Rash trimethoprim (From Sulfamethoxazole-Trimethoprim) Allergy (Severe, Verified 05/10/25 08:53) Rash Tobacco use date assessed: 01/02/25 Dental Screening Dental Screen Date: 01/02/25 [facility] Medical History Tubular adenoma of colon Fatty liver Elevated ferritin level Anemia Anxiety and depression Obesity (BMI 30.0-34.9) Weak urinary stream Bladder trabeculation Enlarged prostate Numbness of left hand Hiatal hernia Alcohol abuse GERD (gastroesophageal reflux disease) Tobacco abuse Obstructive sleep apnea Surgical History History of esophagogastroduodenoscopy (EGD) H/O colonoscopy Family History Father Alcohol abuse Mother Liver cancer Brother No problems noted. Brother Heart attack Sister Breast cancer Sister No problems noted. Sister No problems noted. Daughter No problems noted. Son No problems noted. Other Cancer Social History Housing: Apartment Alcohol intake: current Alcohol intake frequency: former alcohol drinker Alcohol type: hard liquor Comment: stopped 08/2023(told 12/2023), stopped 11/2024 Patient Tobacco Use Status: Current everyday Tobacco user Tobacco use type: Cigarette Cigarettes Per Day: 5 Years Smoked: pack Q 2 days Packs Per Year: 0 Packs per year/per ci.00 e-Cigarette/Vaping Use: Currently Using Second Hand Smoke Exposure: Yes service: No Current occupational status: unemployed Cognitive needs: No Hearing needs: No Vision needs: Yes (Glasses) Questionnaire PHQ-9 Over the last 2 weeks, how often have you been bothered by any of the following problems? 1. Little interest or pleasure in doing things: not at all 2. Feeling down, depressed, or hopeless: several days 3. Trouble falling or staying asleep, or sleeping too much: several days 4. Feeling tired or having little energy: nearly every day 5. Poor appetite or overeating: nearly every day 6. Feeling bad about yourself - or that you are a failure or have let yourself or your family down: nearly every day 7. Trouble concentrating on things, such as reading the newspaper or watching television: nearly every day 8. Moving or speaking so slowly that other people could have noticed. Or the opposite - being so fidgety or restless that you have been moving around a lot more than usual: nearly every day 9. Thoughts that you would be better off or of hurting yourself in some way: several days Total score: 18 Depression Screening Interpretation: Positive Depression Screening Done: Yes Source: Developed by Drs. Lobito Wise, Annamarie Springer, Oumar Soler and colleagues, with an educational sarwat from [employer]. Thrive Questionnaire Date Thrive assessed: 05/10/25 I am a: Parent/Caregiver What is your living situation today?: I do not have a steady places to live I choose not to answer this question Within the past 12 months, did the food you bought not last and you didn't have the money to get more?: Sometimes True Within the past 12 months, did you worry whether your food would run out before you got money to buy more?: Sometimes True Do you have trouble paying for medicines?: No Do you have trouble getting transportation to medical appointments?: No Do you have trouble paying your heating and electricity bill?: No Do you have trouble taking care of your child, family member or friend?: No Do you have trouble with day-to-day activities such as bathing, preparing meals, shopping, managing finances, etc.?: I choose not to answer this question Are you currently unemployed and looking for a job?: No Are you interested in more education?: No Please select the resources that you would like help with: None Currently or been in a relationship where the following occur: I choose not to answer THRIVE Score: 3 AUDIT C Alcohol Use Questionnaire (AUDIT-C) 1. How often do you have a drink containing alcohol?: 4 or more times a week 2. How many drinks containing alcohol do you have on a typical day when you are drinking?: 10 or more 3. How often do you have six or more drinks on one occasion?: Daily or almost daily Total Score: 12 YVONNE-7 AMB Questionnaire YVONNE-7 Date YVONNE - 7 assessed: 01/02/25 Source: Developed by Drs. Lobito Wise, Annamarie Springer, Oumar Soler and colleagues, with an educational sarwat from [employer]. Physical exam (Primary Care) Vital Signs: Last Vital Signs Pulse 74 05/10/25 08:40 BP 112/68 05/10/25 08:40 Pulse Ox 99 05/10/25 08:40 Oxygen Delivery Method Room Air 05/10/25 08:40 BMI result Body Mass Index 27.9 Tobacco/Smoking Status: Tobacco use Status Tobacco use date assessed 01/02/25 05/10/25 08:41 Patient Tobacco Use Status Current everyday Tobacco 05/10/25 08:41 Tobacco use type Cigarette 05/10/25 08:41 e-Cigarette/Vaping Use Currently Using 05/10/25 08:55 PHQ-9: PHQ-9 Score PHQ-9: Total score 18 05/10/25 09:09 Depression Screening Interpretation: Positive Thrive Assessment: Date of Thrive Assessment Date Thrive assessed 05/10/25 05/10/25 08:41 Currently or been in a relationship where the following occur: I choose not to answer Const General: alert; No acute distress Eyes Conjunctivae: conjunctivae normal Resp Auscultation: clear to auscultation bilaterally Cardio Rate: regular rate Rhythm: regular rhythm GI Inspection: Yes normal to inspection Extrem General: Yes normal to inspection and No edema Coding Level of Care Code Est Pt Level 4 (64080) Complex EM visit Add On G2211 Diagnoses Gastroesophageal reflux disease without esophagitis K21.9 Esophagitis presence: without esophagitis Tubular adenoma of colon D12.6 Benign prostatic hyperplasia with weak urinary stream N40.1; R39.12 Lower urinary tract symptom detail: weak urinary stream Lower urinary tract symptom presence: symptoms present Obstructive sleep apnea G47.33 Tobacco abuse Z72.0 Hypercholesterolemia E78.00 Overweight (BMI 25.0-29.9) E66.3 Moderate episode of recurrent major depressive disorder F33.1 Active/Remission status: currently active Major depression episode severity: moderate Alcohol abuse F10.10 Assessment & Plan Assessment & Plan (1) GERD (gastroesophageal reflux disease): Code(s): K21.9 - Gastro-esophageal reflux disease without esophagitis Category: Medical Qualifiers: Esophagitis presence: without esophagitis Qualified Code(s): K21.9 - Gastro-esophageal reflux disease without esophagitis Plan: Avoid the foods that causes that usually spicy foods, tomato products, juices, coffee, soda and foods that your sensitive to. After eating do not lie down, allow 3-4 hours before in lie down. And keep the head of bed above 30 degrees to avoid the acid from going up. Seeing gastroenterology has been placed on omeprazole and Pepcid p.r.n. (2) Tubular adenoma of colon: Code(s): D12.6 - Benign neoplasm of colon, unspecified Category: Medical Plan: Colon test last done in February and was advised repeat in 3 years (3) BPH (benign prostatic hyperplasia): Code(s): N40.0 - Benign prostatic hyperplasia without lower urinary tract symptoms Category: Medical Qualifiers: Lower urinary tract symptom detail: weak urinary stream Lower urinary tract symptom presence: symptoms present Qualified Code(s): N40.1 - Benign prostatic hyperplasia with lower urinary tract symptoms; R39.12 - Poor urinary stream Plan: Continuing with finasteride and alfuzosin under urology (4) Obstructive sleep apnea: Comment: Moderately severe degree of sleep apnea. The AHI was 28/hr and oxygen rhonda was 75 %. CPAP Code(s): G47.33 - Obstructive sleep apnea (adult) (pediatric) Category: Medical Plan: Continue to use the CPAP more than 4 hours a night and benefits from this. (5) Tobacco abuse: Code(s): Z72.0 - Tobacco use Category: Medical Plan: Patient is strongly advised to stop smoking (6) Hypercholesterolemia: Code(s): E78.00 - Pure hypercholesterolemia, unspecified Category: Medical Plan: Avoid fried foods, chicken skin, eggs, butter margarine, pastries and meat. Be it pork or beef they have a lot of cholesterol LDL goal of less than 130 and triglyceride of less than 150. Noted elevated cholesterol in the last blood work in January (7) Overweight (BMI 25.0-29.9): Code(s): E66.3 - Overweight Category: Medical Plan: Diet and exercise (8) Recurrent major depression: Comment: Has been referred [facility] Q month Code(s): F33.9 - Major depressive disorder, recurrent, unspecified Category: Medical Qualifiers: Active/Remission status: currently active Major depression episode severity: moderate Qualified Code(s): F33.1 - Major depressive disorder, recurrent, moderate (9) Alcohol abuse: Code(s): F10.10 - Alcohol abuse, uncomplicated Category: Social Hx Plan: Patient is encouraged to abstain from alcohol. On acamprosate. stopped for 6 months Plan History of Present Illness The patient is a 59-year-old male presenting for management of multiple chronic conditions including obstructive sleep apnea, hepatic steatosis, and hypercholesterolemia. The patient has a history of obstructive sleep apnea and uses CPAP therapy for more than 4 hours a night, which he finds beneficial. He is a smoker and has been strongly advised to stop smoking to improve his overall health. The patient has hepatic steatosis and is encouraged to abstain from alcohol to manage this condition. He is also managing hypercholesterolemia with a goal of reducing LDL cholesterol to less than 130 mg/dL and triglycerides to less than 150 mg/dL. The patient has a history of benign prostatic hyperplasia and is under urological surveillance, continuing with medications such as finasteride and alfuzosin. He has a history of tubular adenoma of the colon, with the last colonoscopy performed in March 2025, and a follow-up advised in 3 years. He is also on omeprazole and PRN famotidine for gastroesophageal reflux disease (GERD). The patient has a history of depression and has been following up with neurology. Health Maintenance - Advised to stop smoking to improve overall health - Encouraged to abstain from alcohol to manage hepatic steatosis - Colonoscopy follow-up advised in 3 years due to history of tubular adenoma Social History - Substance use: Smoker, advised to quit smoking - Alcohol use: Encouraged to abstain from alcohol Review of Systems - Respiratory: Reports using CPAP for obstructive sleep apnea, benefits from it - Gastrointestinal: Reports GERD, on omeprazole and PRN famotidine Physical Exam Results - Labs: Normal blood count, no anemia, normal electrolytes, renal function, and blood sugar as of September - Cholesterol: Elevated cholesterol noted in January, LDL goal of less than 130 mg/dL Plan Patient was informed and verbally consented to the use of an ambient scribe for clinic note documentation during this visit. 1. Obstructive Sleep Apnea The patient is advised to continue using CPAP therapy for more than 4 hours a night, as it provides significant benefits. 2. Hepatic Steatosis The patient is encouraged to abstain from alcohol to manage hepatic steatosis. 3. Benign Prostatic Hyperplasia The patient is under urological surveillance and continues with finasteride and alfuzosin. 4. Hypercholesterolemia The patient is advised to aim for an LDL cholesterol level of less than 130 mg/dL and triglycerides of less than 150 mg/dL. 5. Tubular Adenoma Of The Colon The patient is advised to have a follow-up colonoscopy in 3 years due to the history of tubular adenoma. 6. Depression The patient is following up with neurology for depression management. 7. Gastroesophageal Reflux Disease (Gerd) The patient is on omeprazole and PRN famotidine for GERD management. Discussion Notes Patient Instructions - Continue using CPAP for more than 4 hours each night. - Stop smoking to improve overall health. - Abstain from alcohol to manage liver health. - Follow up with urology and continue prescribed medications for BPH. - Aim for LDL cholesterol less than 130 mg/dL and triglycerides less than 150 mg/dL. - Schedule a colonoscopy in 3 years. - Continue current GERD medications as prescribed. Medications: Refilled fluticasone propionate 50 mcg/actuation (Flonase Allergy Relief) administer into each nostril 2 sprays intranasal DAILY 16 grams 12RF
--- OUTSIDE RECORDS SUMMARY | 2025-05-10 08:41 | XMS_ITS | Clinical Summary ---
Author Organization [employer] Address [address] [place] [address] Care Team Providers Care Senior Human Resources Representative Name Role Phone Unavailable Primary Care Provider [...] Description 05/10/2025 3:00 PM EDT Office Visit [facility] [address] [place] [address] Yury, Incole [address] [place] [address] Health Maintenance Due Date Last Done Comments [...] 1984 Zoster Vaccines (1 of 2) 2015 Dental Oral Exam 11/22/2024 05/24/2024, , 11/30/2018, Additional history exists Dental Prophylaxis 11/22/2024 05/24/2024 COVID-19 Vaccine ( - 2023- season) 2025 Influenza Vaccine (#1) 2025 08/23/2024, 2021 Tobacco [...] Most Recently Relevant to Health Maintenance [facility] ST[facility] Advance Directives Documents on File Type Date Recorded Patient Frit Coater Expl 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
--- OUTSIDE RECORDS SUMMARY | 2025-05-10 08:41 | XMS_ITS | Encounter Summary ---
Author Organization [facility] Address [address] [place] [address] Care Team Providers Care Plastic Bubble Packer Name Role Phone Unavailable Primary Care Provider [...] [facility] [address] [place] [address] Yury, Nicole [address] [place] [address] documented as of this encounter Visit Diagnoses Not on filedocumented in this encounter
--- OUTSIDE RECORDS SUMMARY | 2025-05-10 08:42 | XMS_ITS | Encounter Summary ---
Author Organization [employer] [facility] Address [address] [place] [id number] Care Team Providers Care Machine Cementer Name Role Phone Unavailable Primary Care Provider Unavailabl e Encounter Details Date Type Department Care Team (Latest Contact Info) Description 11/30/2018 Abstract [facility] CONVERSIONS Dental, Provider, DDS Social History [...] Description 05/10/2025 3:00 PM EDT Office Visit [facility] [address] [place] [address] Yury Nicole [address] [place] [address] documented as of this encounter Visit Diagnoses Not on filedocumented in this encounter
== END 2025-05-10 09:25 | disposition home or self-care (01) ==
LOC: HO.HMCH 08:20
PROVIDERS: PCP Internal Medicine; Visit Provider Internal Medicine
DX: K21.9 Gastro-esophageal reflux disease without esophagitis (principal); D12.6 Benign neoplasm of colon, unspecified; N40.1 Benign prostatic hyperplasia with lower urinary tract symptoms; F33.1 Major depressive disorder, recurrent, moderate; E66.3 Overweight; Z68.27 Body mass index [BMI] 27.0-27.9, adult; R39.12 Poor urinary stream; G47.33 Obstructive sleep apnea (adult) (pediatric); Z72.0 Tobacco use; E78.00 Pure hypercholesterolemia, unspecified; F10.10 Alcohol abuse, uncomplicated

== ENCOUNTER → 2025-05-10 08:19 | Outpatient (BNVA) | payer OTHER, SELFPAY | PROVIDERS: PCP Internal Medicine; Visit Provider Internal Medicine | DX: K21.9 Gastro-esophageal reflux disease without esophagitis (principal); D12.6 Benign neoplasm of colon, unspecified; N40.1 Benign prostatic hyperplasia with lower urinary tract symptoms; R39.12 Poor urinary stream; G47.33 Obstructive sleep apnea (adult) (pediatric); E78.00 Pure hypercholesterolemia, unspecified; E66.3 Overweight; F33.1 Major depressive disorder, recurrent, moderate; F10.10 Alcohol abuse, uncomplicated; K76.0 Fatty (change of) liver, not elsewhere classified; Z99.89 Dependence on other enabling machines and devices; F17.210 Nicotine dependence, cigarettes, uncomplicated | CPT/HCPCS: 99212 ==

== ENCOUNTER 2025-06-28 09:21 | Outpatient (REF) | payer OTHER, SELFPAY ==
[2025-06-28 09:36] LABS: MANUAL DIFF FLAG NO
--- OUTSIDE RECORDS SUMMARY | 2025-06-28 10:26 | XMS_ITS | Clinical Summary ---
Author Organization [employer] Address [address] [facility] [address] [place] [address] Care Team Providers Care Cast Shell Grinder Name Role Phone Unavailable Primary Care Provider [...] Active Problems Problem Noted Date Diagnosed Date Excessive attrition of teeth, limited to enamel 05/10/2025 Generalized gingival recession, minimal 05/24/20 24 Missing teeth, acquired 05/24/2024 Retained dental root 06/01/2023 Dental calculus 06/01/2023 Periodontal disease 06/01/2023 Dental abscess 04/29/2023 Encounters Date Type Department Care Team Description 05/10/2025 3:00 PM EDT Office Visit [facility] [address] [place] [address] Nicole Cotton Dental calculus (Primary Dx); Generalized gingival recession, minimal; Missing teeth, acquired; Excessive attrition of teeth, limited to enamel from Last 3 Months Social History Tobacco Use Types Packs/Day Years [...] Sign Reading Time Taken Comments Blood Pressure 130/74 05/10/2025 2:48 PM EDT Pulse 76 05/24/2024 9:05 AM EDT Temperature - - Respiratory Rate - - Oxygen Saturation - - Inhaled Oxygen Concentration - - Weight - - Height - - Body Mass Index - - Plan of Treatment Health Maintenance Due Date Last Done Comments [...] of 2) 2015 COVID-19 Vaccine ( - 2023- season) 2025 Influenza Vaccine (#1) 2025 08/23/2024, 2021 Dental Oral Exam 11/08/2025 05/10/2025, , 06/01/2023, Additional history exists Dental Prophylaxis 11/08/2025 05/10/2025, 05/24/2024 Tobacco Screening 05/10/2026 05/10/2025 Dental X-Ray: Bitewings 05/11/2026 05/10/20 25, 05/24/2024, 06/01/2023, Additional history exists Dental X-Ray: Full Mouth [...] Procedure Name Priority Date/Time Associated Diagnosis Comments PERIODIC ORAL EVALUATION - ESTABLISHED PATIENT Routine 05/10/2025 3:00 PM EDT BITEWINGS - 3 RADIOGRAPHIC IMAGES Routine 05/10/2025 3:00 PM EDT Dental calculus Generalized gingival recession, minimal Missing teeth, acquired Excessive attrition of teeth, limited to enamel INTRAORAL - PERIAPICAL EACH ADDITIONAL RADIOGRAPHIC IMAGE Routine 05/10/2025 3:00 PM EDT Dental calculus Generalized gingival recession, minimal Missing teeth, acquired Excessive attrition of teeth, limited to enamel INTRAORAL - PERIAPICAL EACH ADDITIONAL RADIOGRAPHIC IMAGE Routine 05/10/2025 3:00 PM EDT Dental calculus Generalized gingival recession, minimal Missing teeth, acquired Excessive attrition of teeth, limited to enamel ORAL HYGIENE INSTRUCTIONS Routine 05/10/2025 3:00 PM EDT Dental calculus Generalized gingival recession, minimal Missing teeth, acquired Excessive attrition of teeth, limited to enamel CASE PRESENTATION, DETAILED AND EXTENSIVE TREATMENT PLANNING Routine 05/10/2025 3:00 PM EDT Dental calculus Generalized gingival recession, minimal Missing teeth, acquired Excessive attrition of teeth, limited to enamel PROPHYLAXIS - ADULT Routine 05/10/2025 3 :00 PM EDT Dental calculus INTRAORAL - PERIAPICAL EACH ADDITIONAL RADIOGRAPHIC IMAGE Routine 05/10/2025 3:00 PM EDT Dental calculus Generalized gingival recession, minimal Missing teeth, acquired Excessive attrition of teeth, limited to enamel INTRAORAL - PERIAPICAL FIRST RADIOGRAPHIC IMAGE Routine 05/10/2025 3:00 PM EDT Dental calculus Generalized gingival recession, minimal Missing teeth, acquired Excessive attrition of teeth, limited to enamel INTRAORAL - COMPLETE SERIES OF RADIOGRAPHIC IMAGES Routine 06/01/2023 8:00 AM EDT from Last 3 Months or Most Recently Relevant to Health Maintenance Insurance [facility] MEDICAID STAND ADULT Advance Directives Documents on File Type Date Recorded Patient Jewelry Maker Expl 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
--- OUTSIDE RECORDS SUMMARY | 2025-06-28 10:26 | XMS_ITS | Encounter Summary ---
Author Organization [facility] Address [address] [facility] [address] [address] [place] [id number] Care Team Providers Care Template Reproduction Technician Name Role Phone Unavailable Primary Care Provider Unavailabl e Encounter Details Date Type Department Care Team (Latest Contact Info) Description 01/21/2022 Abstract [facility] CONVERSIONS Dental, Provider, DDS Social History Tobacco Use Types Packs/Day Years Used Date Smoking Tobacco: Never Assessed Sex and Gender Information Value Date Recorded Sex Assigned at Male 07/06/2022 10:34 AM EDT Legal Sex Male 10:34 AM EDT Gender Identity Choose not to disclose 2 10:34 AM EDT Sexual Orientation Choose not to disclose 2021 10:34 AM EDT documented as of this encounter Plan of Treatment Not on file documented as of this encounter Visit Diagnoses Not on filedocumented in this encounter
--- OUTSIDE RECORDS SUMMARY | 2025-06-28 10:26 | XMS_ITS | Encounter Summary ---
Author Organization [employer] [facility] Address [address] [place] [id number] Care Team Providers Care Senior Wealth Advisor Name Role Phone Unavailable Primary Care Provider Unavailabl e Encounter Details Date Type Department Care Team (Latest Contact Info) Description 11/30/2018 Abstract [facility] CONVERSION[facility] Dental, Provider, DDS Social History Tobacco [...]
[2025-06-28 10:41] LABS: Hematocrit 43.2 % (42.0-52.0); Hemoglobin 14.5 g/dl (14.0-18.0); Imm Gran Abs Auto 0.03 X10*3/uL (0.00-0.03); Imm Gran Pct Auto 0.5 % (0.0-0.4); Lymphocytes Absolute Auto 2.4 X10*3/uL (1.2-4.9); Mean Corpuscular HGB Conc 33.6 g/dl (31.0-36.0); Mean Corpuscular Hemoglobin 32.7 pg (27.0-33.0); Mean Corpuscular Volume 97.3 fL (80.0-98.0); NRBC Abs Auto 0.000 X10*3/uL (0.0-0.012); NRBC Pct Auto 0.0 /100WBC (0.0-0.2); Platelet Count 159 X10*3/uL (160-400); Red Blood Count 4.44 X10*6/uL (4.60-5.80); White Blood Count 6.6 X10*3/uL (4.8-10.8)
[2025-06-28 11:12] LABS: Alanine Aminotransferase 17 U/L (0-40); Albumin Level 4.8 g/dL (3.5-5.0); Alkaline Phosphatase 63 U/L (39-117); Anion Gap 13 (12-20); Aspartate Amino Transferase 21 U/L (5-37); Blood Urea Nitrogen 12 mg/dL (9-16); Calcium 9.6 mg/dL (8.4-10.2); Carbon Dioxide 28 mmol/L (22-29); Chloride 106 mmol/L (96-108); Cholesterol 211 mg/dL (<200); Estimated Glomerular Filt Rate > 60; HDL Cholesterol 51 mg/dL (>40); Potassium 3.7 mmol/L (3.3-5.1); Sodium 143 mmol/L (135-145); Total Protein 7.2 g/dL (6.5-8.0); Triglycerides 104 mg/dL (<150)
[2025-06-28 11:30] LABS: Prostate Specific Antigen 1.08 ng/mL (<0.05-4.0)
[2025-06-28 11:33] LABS: Free T4 (Free Thyroxine) 0.95 ng/dL (0.71-1.85); Thyroid Stimulating Hormone 2.53 uIU/mL (0.32-4.0)
[2025-06-28 11:37] LABS: Folate 13.6 ng/mL (> or = 4.0); Vitamin B12 492 pg/mL (200-900)
== END 2025-06-28 09:22 | disposition home or self-care (01) ==
LOC: HO.LAB 09:21
PROVIDERS: Absent Provider Nurse Practitioner Family; PCP Internal Medicine; Visit Provider Internal Medicine
DX: N40.1 Benign prostatic hyperplasia with lower urinary tract symptoms (principal); R39.12 Poor urinary stream; E78.00 Pure hypercholesterolemia, unspecified
CPT/HCPCS: 36415; 80053; 80061; 82607; 82746; 84153; 84439; 84443; 85025

== ENCOUNTER 2025-07-03 10:43 | Outpatient (AMB) | payer OTHER, SELFPAY ==
--- NOTE | 2025-07-03 10:42 | MHC.OFFVIS ---
Intake Visit Reasons: 3m/PSA Intake Note: Patient is present for: 3m/PSA Urology Medication:FINASTERIDE, vitB1, alfuzosin Blood Thinner:NONE TODAY'S PVR: 0mls Director Quality Systems Required: No Accompanied by: Self / Same As Patient Allergies sulfamethoxazole (From Sulfamethoxazole-Trimethoprim) Allergy (Severe, Verified 07/03/25 10:45) Rash trimethoprim (From Sulfamethoxazole-Trimethoprim) Allergy (Severe, Verified 07/03/25 10:45) Rash HPI Comments Details: Surendra is a 59-year-old male patient of Dr. Arellano. He has a past medical history of hiatal hernia, alcohol abuse, GERD, tobacco abuse, and obstructive sleep apnea. He presents to the office today for follow-up of his bladder wall thickening and enlarged prostate. In discussion with the patient today he reports he was unable to complete Bactrim that was prescribed for potential prostatitis during last office visit as he had experienced a rash. He reports initially while he was taking Bactrim for the first 4 days he did feel lower urinary tract symptoms improved however shortly after discontinuation due to generalized body rash symptoms of nocturia, urinary urgency, and urinary frequency resurfaced. In office urinalysis results reviewed with the patient today. Recent PSA results reviewed with the patient today as noted and trended below. We did discuss significant decrease in PSA over the last 5 months. He had previously been on terazosin however had been experiencing dizziness and therefore this has been discontinued in initiated alfuzosin however patient reports he was unable to obtain this from the pharmacy. He does report compliance and finasteride as prescribed. Previous workup has included a bladder ultrasound 01/27 noting mild diffuse thickening and irregularity of the bladder wall with possible trabeculations. Mild low level internal echoes characteristic of debris within the bladder. Enlarged prostate volume of 42 mL. Per radiology report correlation with clinical exam urology consultation is recommended to determine further management including possible direct visualization with cystoscopy. In office urinalysis results reviewed with the patient today. PVR 0 mL. He does have a history of sleep apnea and does report compliance in CPAP. We did discussed correlation of sleep apnea and nocturia. He otherwise denies incontinence, hematuria, dysuria, foul smelling urine, flank pain, fever, and or chills. PSA are as follows: PSAs: 11/22 2.4, 04/26 2.4, 10/29 1.8, 02/27 1.9, 05/30 1.9, 01/28 3.8, 06/30 1.1 He has previously trialed Flomax and did not find this helpful. We discuss trial of alfuzosin as well as potential near future in office cystoscopy for further assessment evaluation. All questions were answered. He otherwise offers no other issues or concerns at this time. [facility] Medical History Tubular adenoma of colon Fatty liver Elevated ferritin level Anemia Anxiety and depression Obesity (BMI 30.0-34.9) Weak urinary stream Bladder trabeculation Enlarged prostate Numbness of left hand Hiatal hernia Alcohol abuse GERD (gastroesophageal reflux disease) Tobacco abuse Obstructive sleep apnea Surgical History History of esophagogastroduodenoscopy (EGD) H/O colonoscopy Family History Father Alcohol abuse Mother Liver cancer Brother No problems noted. Brother Heart attack Sister Breast cancer Sister No problems noted. Sister No problems noted. Daughter No problems noted. Son No problems noted. Other Cancer Social History Housing: Apartment Alcohol intake: current Alcohol intake frequency: former alcohol drinker Alcohol type: hard liquor Comment: stopped 08/2023(told 12/2023), stopped 11/2024 Patient Tobacco Use Status: Current everyday Tobacco user Tobacco use type: Cigarette Cigarettes Per Day: 5 Years Smoked: pack Q 2 days e-Cigarette/Vaping Use: Currently Using Second Hand Smoke Exposure: Yes service: No Current occupational status: unemployed Cognitive needs: No Hearing needs: No Vision needs: Yes (Glasses) Review of Systems Eyes Reports no additional complaints ENT Reports no additional complaints Card Reports as per HPI Resp Reports as per HPI GI Reports no additional complaints Reports as per HPI Musc Reports no additional complaints Neuro Reports no additional complaints Psych Reports as per HPI Endo Reports no additional complaints Keith/Lymph Reports no additional complaints Aller/Immun Reports no additional complaints Physical Exam Const General: cooperative, healthy appearing, comfortable, no acute distress, well developed, alert and awake Nutritional Appearance: overweight Orientation/consciousness: patient oriented x3 Limitations: no limitations HEENT Head: Yes normal to inspection, Yes normocephalic and Yes atraumatic Ears: hearing grossly normal bilaterally Eyes General: appearance normal, both eyes and all related structures Neck Neck: Yes normal visual inspection and Yes trachea midline Chest Chest palpation & inspection: normal inspection of the chest Resp Effort & Inspection: normal respiratory effort and able to speak in complete sentences Cardio Rate: regular rate GI Inspection: Yes normal to inspection General: Yes no CVA tenderness Back/Spine/Pelvis Back: no CVA tenderness Skin General skin exam: no rashes or lesions noted Neuro General: patient oriented x3 Extrem General: Yes normal to inspection Psych Appearance: grossly normal and well kempt Mental Status: mental status grossly normal Speech and movement: Normal speech and movement present and Clear speech present Affect: normal affect Attitude: cooperative Thought process: Normal thought process present Thought content: Normal thought content present Insight: Fair insight present (Psych) Judgement: Fair judgement present (Psych) Office Procedures Post Void Residual Post Residual Void Post Void Residual (PVR): 0 [id number]-Ffoq Void Residual by ultrasound Results AMB Urinalysis, Automated UA Leukoctes 0 Niurka/uL Last Edit by STEPHANIE Cha on 07/03/25 10:57 UA Nitrite Last Edit by STEPHANIE Cha on 07/03/25 10:57 UA Urobilinogen 0.2 mg/dL Last Edit by STEPHANIE Cha on 07/03/25 10:57 UA Protein 15 mg/dL Last Edit by STEPHANIE Cha on 07/03/25 10:57 UA pH 6.0 Last Edit by STEPHANIE Cha on 07/03/25 10:57 UA Blood 0 Eladio/uL Last Edit by STEPHANIE Cha on 07/03/25 10:57 UA Specific Henderson 1.015 Last Edit by STEPHANIE Cha on 07/03/25 10:57 UA Ketone Last Edit by STEPHANIE Cha on 07/03/25 10:57 UA Bilirubin 0 mg/dL Last Edit by STEPHANIE Cha on 07/03/25 10:57 UA Glucose 0 mg/dL Last Edit by STEPHANIE Cha on 10/28/25 10:57 Assessment & Plan Assessment & Plan (1) Bladder wall thickening: Code(s): N32.89 - Other specified disorders of bladder Category: Medical (2) BPH (benign prostatic hyperplasia): Code(s): N40.0 - Benign prostatic hyperplasia without lower urinary tract symptoms Category: Medical Qualifiers: Lower urinary tract symptom presence: symptoms present Lower urinary tract symptom detail: weak urinary stream Qualified Code(s): N40.1 - Benign prostatic hyperplasia with lower urinary tract symptoms; R39.12 - Poor urinary stream (3) Nocturia: Code(s): R35.1 - Nocturia Category: Medical Plan In office urinalysis results reviewed with the patient today; as noted above. PVR 0 mL. Start alfuzosin as discussed and prescribed. Start doxycycline as discussed and prescribed. Recent PSA results reviewed with the patient today; as noted above.. All questions were answered. We discussed the importance of compliance in CPAP. We discussed the importance of limiting fluids 2-3 hours prior to bed to decrease episodes of nocturia. RUFINO was offered however deferred. We did discussed potential near future in office cystoscopy and or urodynamics for further assessment evaluation. Follow-up in 2-3 months with PVR; or sooner with any issues, concerns, and or questions. Orders: Orders AMB Post Void Residual by ultrasound Today N40.1 - Benign prostatic hyperplasia with lower urinary tract symptoms, R39.12 - Poor urinary stream AMB Urinalysis Automated Today Z13.9 - Encounter for screening, unspecified Medications: New doxycycline hyclate 100 mg PO BID 28 tabs 0RF 14 days Refilled alfuzosin ER Take before bedtime 10 mg PO BEDTIME 90 tabs 0RF 90 days N32.0 - Bladder-neck obstruction, N40.1 - Benign prostatic hyperplasia with lower urinary tract symptoms, R33.9 - Retention of urine, unspecified, R35.1 - Nocturia, R39.12 - Poor urinary stream Patient Instructions: The patient had an opportunity to ask questions regarding the treatment plan. All questions were answered. Physical exam, labs, and imaging were discussed and reviewed in detail. As well as risks, benefits, and discussion of treatment choices. No major barriers to understanding were identified. The patient expressed understanding and agreement with the above treatment plan. The patient was made aware they should contact our office by phone for worsening of their current condition, the appearance of new symptoms, or with any questions or concerns. Compliance is encouraged with any medications and follow up testing that is ordered. It is a privilege to be allowed the opportunity to participate in? your urological care.? Again, if you have any questions or concerns If you have any questions or concerns please do not hesitate to contact me. The office is [phone]. This note is constructed using voice recognition software. While every effort has been made to ensure accuracy medical transcription errors may have been included. Yours sincerely, DYLLAN Claros Coding Level of Care Code Est Pt Level 4 (59285) Diagnoses Bladder wall thickening N32.89 Benign prostatic hyperplasia with weak urinary stream N40.1; R39.12 Lower urinary tract symptom presence: symptoms present Lower urinary tract symptom detail: weak urinary stream Nocturia R35.1 CPT Codes Post Residual Void - PVR CPT Code: 37205-Vccw Void Residual by ultrasound ([id number])
--- OUTSIDE RECORDS SUMMARY | 2025-07-03 13:39 | XMS_ITS | Encounter Summary ---
Author Organization [facility] Address [address] [place] [id number] Care Team Providers Care County Agent Name Role Phone Unavailable Primary Care Provider [...]
--- OUTSIDE RECORDS SUMMARY | 2025-07-03 13:39 | XMS_ITS | Clinical Summary ---
Author Organization [employer] Address [address] [place] [address] Care Team Providers Care Script Editor Name Role Phone Unavailable Primary Care Provider [...] Description 05/10/2025 3:00 PM EDT Office Visit [facility] [address] [place] [address] Nicole Cotton Dental calculus (Primary Dx); Generalized [...] this topic Meningococcal Vaccine Aged Out No fleipa carloz eligible based on patient's age to [...] Most Recently Relevant to Health Maintenance Insurance [facility]AL-[facility] MEDICAID STAND ADULT Advance Directives Documents on File Type Date Recorded 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
--- OUTSIDE RECORDS SUMMARY | 2025-07-03 13:39 | XMS_ITS | Encounter Summary ---
Author Organization [facility] Address [address] [place] [id number] Care Team Providers Care Oncology Transplant Network Manager Name Role Phone Unavailable Primary Care [...]
== END 2025-07-03 11:13 | disposition home or self-care (01) ==
LOC: HO.HUSH 10:44
PROVIDERS: PCP Internal Medicine; Visit Provider Nurse Practitioner Family
DX: N32.89 Other specified disorders of bladder (principal); N40.1 Benign prostatic hyperplasia with lower urinary tract symptoms; R39.12 Poor urinary stream; R35.1 Nocturia; Z13.9 Encounter for screening, unspecified
CPT/HCPCS: 99214

== ENCOUNTER → 2025-07-03 10:43 | Outpatient (BNVA) | payer OTHER, SELFPAY | PROVIDERS: PCP Internal Medicine; Visit Provider Nurse Practitioner Family | DX: N40.1 Benign prostatic hyperplasia with lower urinary tract symptoms (principal); N32.89 Other specified disorders of bladder; R39.12 Poor urinary stream; R35.1 Nocturia | CPT/HCPCS: 51798; 81003; 99212 ==

== ENCOUNTER 2025-07-04 11:18 | Outpatient (REF) | payer OTHER, SELFPAY ==
--- NOTE | ~2025-07-04 | MR_ITS ---
EXAMINATION: MR BRAIN WITHOUT AND WITH CONTRAST CLINICAL INFORMATION: Pineal cyst. Headache. COMPARISON: June 26, 2024. Correlated to noncontrast CT brain dated June 03, 2023. TECHNIQUE: Multiplanar, multisequence MRI of the brain was obtained before and after the intravenous administration of 8.5 mL gadolinium based (Gadavist) without reported immediate complications.. FINDINGS: There is an 11 mm ovoid shaped, peripheral thin enhancing fluid signal characteristic lesion without restricted diffusion centered in the pineal gland with susceptibility correspond to the dystrophic calcifications peripherally. There is a hyperintense FLAIR signal in the anterior aspect with a layering hypointense FLAIR signal in a dependent portion. No restricted diffusion. No acute intracranial hemorrhage, mass effect, midline shift, hydrocephalus or herniation. Reis-white matter differentiation is normal. There is normal position of the cerebellar tonsils. Sellar/suprasellar region is normal. Flow-void signal within the main cerebral vessels is normal. Polypoid mucosal thickening, maxillary sinuses, frontal sinus and likely ethmoid air cells. Small retention cyst, left sphenoid sinus. Hyperintense T2 FLAIR signal in the right mastoid air cells. . 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 Overall stable. Electronically signed by: Tonio Montoya MD 07/04/2025 12:25 PM EDT
--- OUTSIDE RECORDS SUMMARY | 2025-07-04 14:25 | XMS_ITS | Encounter Summary ---
Author Organization [employer] [facility] Address [address] [place] [id number] Care Team Providers Care Wall Man Name Role Phone Unavailable Primary Care Provider [...]
--- OUTSIDE RECORDS SUMMARY | 2025-07-04 14:25 | XMS_ITS | Clinical Summary ---
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
--- OUTSIDE RECORDS SUMMARY | 2025-07-04 14:25 | XMS_ITS | Encounter Summary ---
Author Organization [facility] Address [address] [place] [address] Care Team Providers Care Implementation Consultant Name Role Phone Unavailable Primary Care Provider [...]
== END 2025-07-04 11:19 | disposition home or self-care (01) ==
LOC: HO.MRI 11:18
PROVIDERS: PCP Internal Medicine; Visit Provider Neurological Surgery
DX: E34.8 Other specified endocrine disorders (principal)
CPT/HCPCS: 70553; A9585

== ENCOUNTER → 2025-07-04 11:35 | Outpatient (BNV) | payer OTHER, SELFPAY | PROVIDERS: PCP Internal Medicine; Visit Provider Radiology Diagnostic Radiology | DX: E34.8 Other specified endocrine disorders (principal) | CPT/HCPCS: 70553 ==

== ENCOUNTER 2025-07-23 14:06 | Outpatient (AMB) | payer OTHER, SELFPAY ==
[2025-07-23 14:12] VITALS: BP 132/72; PULSE 67; O2SAT 98; BMI 28.7
--- NOTE | 2025-07-23 14:12 | A.OFFPC_ITS ---
Vital Signs 07/23/25 14:12 Height 5 ft 7 in Weight 183 lb BMI 28.7 BP 132/72 Blood Pressure Location Lt brachial Position Sitting Pulse 67 Pulse Source Pulse Oximeter Pulse Oximetry (%) 98 Oxygen Delivery Method Room Air Intake Visit Reasons: hypercholesterol Allergies sulfamethoxazole (From Sulfamethoxazole-Trimethoprim) Allergy (Severe, Verified 07/23/25 14:12) Rash trimethoprim (From Sulfamethoxazole-Trimethoprim) Allergy (Severe, Verified 07/23/25 14:12) Rash Medication List - Last Reconciled 07/23/25 by Tavia Arellano MD acamprosate 666 mg PO TID albuterol sulfate 90 mcg/actuation (Ventolin HFA) 2 puffs inhalation Q6H PRN alfuzosin ER 10 mg PO BEDTIME 90 days aripiprazole 10 mg PO DAILY bisacodyl (Laxative (bisacodyl)) 10 mg PO BEDTIME bupropion HCl XL 300 mg PO DAILY clonidine HCl 0.1 mg PO BID doxycycline hyclate 100 mg PO BID 14 days famotidine (Pepcid) 20 mg PO BEDTIME finasteride 5 mg PO DAILY 90 days fluticasone propionate 50 mcg/actuation (Flonase Allergy Relief) 2 sprays intranasal DAILY hydrocortisone 2.5% (Proctosol HC) 1 appl [place] BID-QID PRN hydroxyzine pamoate 25 mg PO BID magnesium oxide 400 mg PO DAILY MDD 400mg mirtazapine 7.5 mg PO BEDTIME omeprazole 40 mg PO DAILY sertraline 50 mg PO BID thiamine HCl (vitamin B1) 100 mg PO DAILY 3 months MDD 100mg Tobacco use date assessed: 01/02/25 Dental Screening Dental Screen Date: 01/02/25 HPI HPI Comments History of Present Illness Details History of Present Illness The patient is a 59-year-old overweight male presenting for a follow-up visit. He has experienced a 5-pound weight gain since May 10. His past medical history is significant for smoking, obstructive sleep apnea, GERD, fatty liver, a history of alcohol abuse, depression, hypercholesterolemia, BPH, and tubular adenoma of the colon, with his last colonoscopy in March 2025. 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 Another MRI in June 2025 also noted a stable 11 mm lesion. The patient follows a urologist, most recently seen on July 03, for BPH with bladder wall thickening. He was advised to start Alfuzosin and was also prescribed doxycycline for prostatitis. He also developed a body rash. Blood work from June 28 showed a normal blood count with very mild thrombocytopenia, normal electrolytes, normal renal function, and normal blood sugar. Liver function tests were good, but cholesterol was high with an LDL of 140. His PSA was 1.08, and levels of vitamin B12, folic acid, and thyroid were all within normal limits. The patient also has severe nasal congestion from allergic rhinitis, which is exacerbated by carpeting in his room. Health Maintenance - Last colonoscopy was in March 2025 for history of tubular adenoma of the colon. - Follow-up brain MRI performed on er for a stable pineal cyst. - PSA level is 1.08. - Patient was strongly advised to stop s moking. - He uses a CPAP machine for about 4 francisco rs per night for obstructive sleep apnea and reports benefiting from it. - Cholesterol management is currently di et-controlled with a goal LDL of less than 130 and triglycerides less than 150. Social History - Substance Use: The patient has a histo ry of smoking and alcohol abuse. - Weight Management: The patient is over weight and has had a recent 5-pound weight gain. - Housing: The patient lives in a room w ith carpeting, which contributes to severe nasal congestion from allergic rhinitis. Results - Labs (June 28): - Blood count was normal with very mild thrombocytopenia. - Electrolytes, renal function, and bloo d sugar were normal. - Liver function tests were good. - Cholesterol was high, with an LDL of 1 40. - PSA was 1.08. - Vitamin B12, folic acid, and thyroid l evels were within normal limits. 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 - Urology follow-up (July 03) noted B PH with bladder wall thickening. [facility] Medical History Tubular adenoma of colon Fatty liver Elevated ferritin level Anemia Anxiety and depression Obesity (BMI 30.0-34.9) Weak urinary stream Bladder trabeculation Enlarged prostate Numbness of left hand Hiatal hernia Alcohol abuse GERD (gastroesophageal reflux disease) Tobacco abuse Obstructive sleep apnea Surgical History History of esophagogastroduodenoscopy (EGD) H/O colonoscopy Family History Father Alcohol abuse Mother Liver cancer Brother No problems noted. Brother Heart attack Sister Breast cancer Sister No problems noted. Sister No problems noted. Daughter No problems noted. Son No problems noted. Other Cancer Social History Housing: Apartment Alcohol intake: current Alcohol intake frequency: former alcohol drinker Alcohol type: hard liquor Comment: stopped 08/2023(told 12/2023), stopped 11/2024 Patient Tobacco Use Status: Current everyday Tobacco user Tobacco use type: Cigarette Cigarettes Per Day: 10 Years Smoked: pack Q 2 days e-Cigarette/Vaping Use: Currently Using Second Hand Smoke Exposure: Yes service: No Current occupational status: unemployed Cognitive needs: No Hearing needs: No Vision needs: Yes (Glasses) Questionnaire Thrive Questionnaire Date Thrive assessed: 05/10/25 I am a: Parent/Caregiver What is your living situation today?: I do not have a steady places to live I choose not to answer this question Within the past 12 months, did the food you bought not last and you didn't have the money to get more?: Sometimes True Within the past 12 months, did you worry whether your food would run out before you got money to buy more?: Sometimes True Do you have trouble paying for medicines?: No Do you have trouble getting transportation to medical appointments?: No Do you have trouble paying your heating and electricity bill?: No Do you have trouble taking care of your child, family member or friend?: No Do you have trouble with day-to-day activities such as bathing, preparing meals, shopping, managing finances, etc.?: I choose not to answer this question Are you currently unemployed and looking for a job?: No Are you interested in more education?: No Please select the resources that you would like help with: None Currently or been in a relationship where the following occur: I choose not to answer THRIVE Score: 3 YVONNE-7 AMB Questionnaire YVONNE-7 Date YVONNE - 7 assessed: 01/02/25 Source: Developed by Drs. Lobito Wise, Annamarie Springer, Oumar Soler and colleagues, with an educational sarwat from [employer]. Review of Systems Narrative Review of Systems - Constitutional: Reports a 5-pound weight gain. - Integumentary: Reports developing a body rash. - ENT: Reports severe nasal congestion. Physical exam (Primary Care) Vital Signs: Last Vital Signs Pulse 67 07/23/25 14:12 BP 132/72 07/23/25 14:12 Pulse Ox 98 07/23/25 14:12 Oxygen Delivery Method Room Air 07/23/25 14:12 BMI result Body Mass Index 28.7 Tobacco/Smoking Status: Tobacco use Status Tobacco use date assessed 01/02/25 07/23/25 14:19 Patient Tobacco Use Status Current everyday Tobacco 07/23/25 14:19 Tobacco use type Cigarette 07/23/25 14:19 e-Cigarette/Vaping Use Currently Using 07/23/25 14:19 Thrive Assessment: Date of Thrive Assessment Date Thrive assessed 05/10/25 07/23/25 14:19 Currently or been in a relationship where the following occur: I choose not to answer Narrative Physical Exam Const General: alert; No acute distress Eyes Conjunctivae: conjunctivae normal Resp Auscultation: clear to auscultation bilaterally Cardio Rate: regular rate Rhythm: regular rhythm GI Inspection: Yes normal to inspection Extrem General: Yes normal to inspection and No edema Office Procedures Flu Questionnaire Does the patient have a severe egg allergy?: No Does the patient have severe life threatening allergies?: No Does the patient have a fever or illness today?: No Has the patient ever had Guillain-Galena Syndrome?: No Has the patient ever had any past reaction to a flu shot?: No Immunizations Fluarix [id number] (PF) 45 mcg (15 mcg x 3)/0.5 mL IM syringe Performing Provider: Tavia Arellano MD [facility] Administered by: Selene Jang CMA on 07/23/25 14:19 Dose Route Admin Location Dispensed Lot Number Expiration Date [facility] [employer] 0.5 mL IM Left Deltoid 0.5 mL [id number] 03/05/26 [id number] [employer] VIS Given Date VIS Provided VIS Publication Date 07/23/25 Single Vaccine 24 Eligibility Eligibility Date Funding Source Not [facility] Eligible 07/23/25 Private Coding Level of Care Code Est Pt Level 4 (79892) Complex EM visit Add On G2211 Diagnoses Hypercholesterolemia E78.00 Gastroesophageal reflux disease without esophagitis K21.9 Esophagitis presence: without esophagitis Tubular adenoma of colon D12.6 Benign prostatic hyperplasia with weak urinary stream N40.1; R39.12 Lower urinary tract symptom detail: weak urinary stream Lower urinary tract symptom presence: symptoms present 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 Be it pork or beef they have a lot of cholesterol LDL goal of less than 130 and triglyceride of less than 150 patient is diet controlled (2) GERD (gastroesophageal reflux disease): Code(s): K21.9 - Gastro-esophageal reflux disease without esophagitis Category: Medical Qualifiers: Esophagitis presence: without esophagitis Qualified Code(s): K21.9 - Gastro-esophageal reflux disease without esophagitis Plan: Avoid the foods that causes that usually spicy foods, tomato products, juices, coffee, soda and foods that your sensitive to. After eating do not lie down, allow 3-4 hours before in lie down. And keep the head of bed above 30 degrees to avoid the acid from going up. (3) Tubular adenoma of colon: Comment: March 2025 Code(s): D12.6 - Benign neoplasm of colon, unspecified Category: Medical Plan: March 2025 last colonoscopy (4) BPH (benign prostatic hyperplasia): Code(s): N40.0 - Benign prostatic hyperplasia without lower urinary tract symptoms Category: Medical Qualifiers: Lower urinary tract symptom detail: weak urinary stream Lower urinary tract symptom presence: symptoms present Qualified Code(s): N40.1 - Benign prostatic hyperplasia with lower urinary tract symptoms; R39.12 - Poor urinary stream Plan: Patient has been seen by Urology and has been placed on alfuzosin and doxycycline (5) Pituitary incidentaloma: Comment: [facility]. Andrade, [facility], June 2025 11 mm stable Code(s): D49.7 - Neoplasm of unspecified behavior of endocrine glands and other parts of nervous system Category: Medical Plan: Continue to monitor and is stable (6) Obstructive sleep apnea: Comment: Moderately severe degree of sleep apnea. The AHI was 28/hr and oxygen rhonda was 75 %. CPAP Code(s): G47.33 - Obstructive sleep apnea (adult) (pediatric) Category: Medical Plan: Continue to use the CPAP more than 4 hours a night and benefits from this. (7) Tobacco abuse: Code(s): Z72.0 - Tobacco use Category: Medical Plan: Patient is strongly advised to stop smoking ! (8) Allergic rhinitis: Code(s): J30.9 - Allergic rhinitis, unspecified Category: Medical (9) Erectile disorder: Code(s): N52.9 - Male erectile dysfunction, unspecified Category: Medical Plan Plan Patient was informed and verbally consented to the use of an ambient scribe for clinic note documentation during this visit. 1. Hypercholesterolemia The patient's recent lab work showed an LDL of 140. The condition will continue to be managed with diet control, with a goal of achieving an LDL less than 130 and triglycerides less than 150. 2. Benign Prostatic Hyperplasia And Prostatitis The patient has been seen by urology and was placed on Alfuzosin for BPH with bladder wall thickening and doxycycline for prostatitis. The plan is to continue to monitor, as his condition is considered stable. 3. Pineal Cyst An MRI in June showed a stable 11 mm pineal cyst. The plan is to continue to monitor, and the condition is considered stable. 4. Obstructive Sleep Apnea The plan is for the patient to continue using his CPAP machine for about 4 hours per night, from which he benefits. 5. Tobacco Use The patient was strongly advised to stop smoking. 6. Allergic Rhinitis Due to severe nasal congestion from allergic rhinitis, a letter will be sent to request the removal of carpeting from the patient's room. Discussion Notes I advised the patient to continue with diet control for his hypercholesterolemia, with a goal LDL of less than 130. We reviewed his recent urology visit, and he is to take Alfuzosin and doxycycline as prescribed. I encouraged him to continue using his CPAP nightly as he benefits from it. I also strongly advised him to stop smoking. A letter was drafted to request the removal of carpeting from his room to help manage his severe nasal congestion from allergic rhinitis. Patient Instructions - Continue to manage your cholesterol with diet. Your goal is to get your LDL cholesterol below 130. - Take Alfuzosin and doxycycline as prescribed by your urologist. - Continue using your CPAP machine for at least 4 hours every night. - It is very important that you stop smoking. Orders: Orders Comprehensive Met. Panel 3 Months E78.00 - Pure hypercholesterolemia, unspecified Complete Blood Count Auto Diff 3 Months E7.00 - Pure hypercholesterolemia, unspecified Influenza [id number] Immunization Today Z23 - Encounter for immunization Lipid Panel 3 Months E78.00 - Pure hypercholesterolemia, unspecified Medications: New sildenafil (Viagra) administer 30 minutes to 4 hours before activity 50 mg PO DAILY PRN 30 tabs 0RF sexual activity N52.9 - Male erectile dysfunction, unspecified simvastatin 5 mg PO BEDTIME 30 tabs 3RF E78.00 - Pure hypercholesterolemia, unspecified Refilled finasteride 5 mg PO DAILY 90 tabs 3RF 90 days N40.1 - Benign prostatic h yperplasia with lower urinary tract symptoms, R33.9 - Retention of urine, unspecified
== END 2025-07-23 14:44 | disposition home or self-care (01) ==
LOC: HO.HMCH 14:07
PROVIDERS: PCP Internal Medicine; Visit Provider Internal Medicine
DX: E78.00 Pure hypercholesterolemia, unspecified (principal); K21.9 Gastro-esophageal reflux disease without esophagitis; D12.6 Benign neoplasm of colon, unspecified; N40.1 Benign prostatic hyperplasia with lower urinary tract symptoms; R39.12 Poor urinary stream; D49.7 Neoplasm of unspecified behavior of endocrine glands and other parts of nervous system; G47.33 Obstructive sleep apnea (adult) (pediatric); Z72.0 Tobacco use; J30.9 Allergic rhinitis, unspecified; N52.9 Male erectile dysfunction, unspecified; Z23 Encounter for immunization

== ENCOUNTER → 2025-07-23 14:06 | Outpatient (BNVA) | payer OTHER, SELFPAY | PROVIDERS: PCP Internal Medicine; Visit Provider Internal Medicine | DX: N40.1 Benign prostatic hyperplasia with lower urinary tract symptoms (principal); J30.9 Allergic rhinitis, unspecified; E78.00 Pure hypercholesterolemia, unspecified; K21.9 Gastro-esophageal reflux disease without esophagitis; D12.6 Benign neoplasm of colon, unspecified; R39.12 Poor urinary stream; D49.7 Neoplasm of unspecified behavior of endocrine glands and other parts of nervous system; G47.33 Obstructive sleep apnea (adult) (pediatric); N52.9 Male erectile dysfunction, unspecified; R33.8 Other retention of urine; Z23 Encounter for immunization | CPT/HCPCS: 90471; 90656; 99212 ==